=== PATIENT | male | born 1955 | race Caucasian/White ===

== ENCOUNTER 2018-06-26 17:03 | Inpatient (IN) ==
--- NOTE | 2018-06-26 17:07 | Emergency Department Note ---
Disposition Clinical Impression: Elevated troponin, Lower extremity edema, Alcoholism Cellulitis Qualifiers: Site of cellulitis: other site Qualified Code(s): L03.818 - Cellulitis of other sites CHF exacerbation Qualifiers: Heart failure type: unspecified Qualified Code(s): I50.9 - Heart failure, unspecified Deep vein thrombosis of lower extremity Qualifiers: Affected thrombotic vein of extremity: other lower extremity vein Chronicity: acute Laterality: left Qualified Code(s): I82.492 - Acute embolism and thrombosis of other specified deep vein of left lower extremity Disposition: Admitted As Inpatient Condition: Fair Referrals: Pollo Jean-Baptiste DO [Primary Care Provider] - Time of Disposition: 21:00 General Adult HPI - General Chief complaint: UC Nontraumatic Extremity Problem Stated complaint: chest pain Time Seen by Provider: 06/26/18 17:05 Source: patient, EMS Mode of arrival: EMS Limitations: no limitations Nursing Notes Reviewed: Yes Vital Signs Reviewed: Yes - History of Present Illness HPI Narrative: Mr Jung is a 63yo male here via EMS. He went to for increased swelling of the bilateral LE. He states he is always somewhat swollen but this is much worse than usual, he has started noticing it getting worse over the last few days. He also states that he has chronic shortness of breath, moreso on exertion than at baseline. He states that he has no active chest pain nor has he ever had a heart attack. He doesn't have a formal diagnosis of COPD and denies wearing oxygen at home. He does also note that his feet have been more swollen and red than usual the last 2-3 days. He denies any fevers, chills, change in sputum production, headche, n/v/d, or abdominal pain. Pt Subjective Complaint: my legs are swollen - Related Data Allergies Allergy/AdvReac Type Severity Reaction Status Date / Time No Known Allergies Allergy Verified 03/05/16 16:59 Constitutional: Denies: fever, chills ENT ED: Reports: congestion Cardiovascular: Reports: dyspnea on exertion. Denies: chest pain, palpitations Respiratory: Reports: cough, dyspnea, wheezes Gastrointestinal: Denies: abdominal pain, nausea, vomiting Neurological: Reports: weakness Endocrine: Reports: fatigue Hematological/Lymphatic: Denies: easy bleeding, easy bruising Past Medical History - Past Medical History Medical history: Reports: hypertension, liver disease Surgical history: Reports: appendectomy, knee replacement Psychiatric history: Reports: depression - Social History Smoking Status: Current every day smoker Alcohol use: Reports: heavy Drug use: Reports: none Physical Exam - General Limitations: no limitations General appearance: alert, in no apparent distress, other (sitting in bed comfortably, not in respiratory distress, able to speak in full sentences) - Head Head exam: atraumatic, normocephalic, normal inspection - Eye Eye exam: Present: normal appearance. Absent: scleral icterus - ENT ENT exam: normal exam, mucous membranes moist - Neck Neck exam: Present: normal inspection, trachea midline - Chest Chest inspection: Present: symmetric chest wall rise - Respiratory Respiratory exam: Present: wheezes, prolonged expiratory phase, other (no rhonchi, stridor or accessory muscle use) - Cardiovascular Cardiovascular exam: Present: regular rate, normal rhythm, +S1, +S2. Absent: rubs, gallop, clicks, JVD - Abdominal Exam Abdominal exam: Present: soft, Non-Tender. Absent: distention, guarding, rebound, rigidity - Extremities Exam Extremities exam: Present: normal capillary refill, pedal edema (2+), other (feet bilaterally are swollen and tender to the touch, appear to be early cellulitis) - Neurological Exam Neurological exam: Present: alert, oriented X3 - Psychiatric Psychiatric exam: Present: normal affect, normal mood - Skin Skin exam: Present: warm, dry, intact Course Course Narrative: Mr Jung is a 63yo male here via EMS. He went to for increased swelling of the bilateral LE. He states he is always somewhat swollen but this is much worse than usual, he has started noticing it getting worse over the last few days. He also states that he has chronic shortness of breath, moreso on exertion than at baseline. He states that he has no active chest pain, has no heart hx, has never been diagnosed with an acute CO nor has he ever had a workup for heart disease. He has never been formally diagnosed with COPD nor does he wear O2 at home but he has been smoking for 50+ yrs. The pt has swollen, tender feet on examination that appear to be early cellulitis. Will work the pt up for causes of edema including new onset CHF exacerbation. Will give the pt a breathing tx and check bilateral LE with doppler US to r/o DVT. Likely to go home on oral abx. - Reevaluation(s) Reevaluation #1: is at bedside. Time: 17:34 Reevaluation #2: Spoke with hospitlaist who accepts admission. Pt made aware of admission. Time: 21:00 Vital Signs Temperature 99.5 F 06/26/18 17:06 Pulse Rate 83 06/26/18 17:06 Respiratory Rate 17 06/26/18 17:06 Blood Pressure 130/88 06/26/18 17:06 O2 Sat by Pulse Oximetry 100 06/26/18 17:06 Temperature 99.5 F 06/26/18 17:06 Pulse Rate 91 06/26/18 18:09 Respiratory Rate 14 06/26/18 18:09 Blood Pressure 147/93 06/26/18 18:09 O2 Sat by Pulse Oximetry 98 06/26/18 18:09 Oxygen Delivery Oxygen Delivery Room Air Medical Decision Making - MDM Narrative Medical decision making narrative: Mr Jung is a 63yo male here via EMS. He went to for increased swelling of the bilateral LE. He meets SIRS criteria for HR of 91 and WBC count of 25.1. On initial evaluation the pt had bilateral lower extremity edema and erythema, he appears to have early changes of cellulitis for which he was given vancomycin and zosyn. Blood cx were ordered and are pending. Troponin was elevated at 0.04, likely secondary to demand ischemia from infxn vs CHF exacerbation. He also had a BNP 340. He has never had a formal cardiac workup nor has he had any cardiac disease history. He also had a lower extremity doppler ultrasound which showed acute thrombus in LT gastricnemius vein (a deep vein) and LT LSV (a superficial vein) all other vessels appear patent. He will be started on enoxaparin for this. He CXR was negative for acute process and CT scan negative for PE. Hospitalist Dr Goins accepts the admission. He will be evaluated for further evaluation and tx. He is currently stable for transfer to the floor. He also did admit to a hx of alcohol abuse and states he drinks excessively and very heavy. He got one dose of ativan in the ER and CIWA assessment. - Medical Records Medical records reviewed: Yes I reviewed the patient's medical records. - Lab Data Lab results reviewed: Yes I reviewed the patient's lab results. Result diagrams: 06/26/18 17:30 06/26/18 17:30 Lab Results 06/26/18 06/26/18 06/26/18 Range/Units 17:30 17:30 17:30 WBC 25.1 H (4.3-11.1) K/mcL RBC 4.15 L (4.19-5.50) M/mcL Hgb 13.0 (12.9-16.9) g/dL Hct 37.9 (37.5-50.1) % MCV 91.3 (83.0-100.0) fL MCH 31.3 (28.0-33.3) pg MCHC 34.3 (31.6-35.5) g/dL RDW 13.7 (11.5-14.5) % Plt Count 373 (140-400) K/mcL MPV 9.4 (9.4-12.4) fL Immature Gran % 2.1 (0-4) % Seg Neutrophils % 90.8 % Lymphocytes % 4.0 % Monocytes % 2.8 % Eosinophils % 0.1 % Basophils % 0.2 % Neutrophils # 22.8 H (1.6-8.9) K/mcL Lymphocytes # 1.0 (0.6-4.6) K/mcL Monocytes # 0.7 (0.0-1.3) K/mcL Eosinophils # 0.0 (0.0-0.6) K/mcL Basophils # 0.1 (0.0-0.2) K/mcL Platelet Estimate Normal (Normal) Sodium 125 L (136-145) mEq/L Potassium 3.5 (3.5-5.1) mEq/L Chloride 90 L (98-107) mEq/L Carbon Dioxide 26 (23-29) mEq/L BUN 15 (8-23) mg/dL Creatinine 0.57 L (0.70-1.30) mg/dL Est GFR ( Amer) > 60 (> 60) Est GFR (Non-Af Amer) > 60 (> 60) BUN/Creatinine Ratio 26 (6-26) Glucose 90 (70-105) mg/dL Calculated Osmolality 260 L (280-300) Lactic Acid (0.5-2.2) mmol/L Calcium 8.5 L (8.6-10.3) mg/dL Troponin I 0.04 H* (< 0.04) ng/mL B-Natriuretic Peptide 340 H (Less than 100) pg/mL 06/26/18 Range/Units 18:49 WBC (4.3-11.1) K/mcL RBC (4.19-5.50) M/mcL Hgb (12.9-16.9) g/dL Hct (37.5-50.1) % MCV (83.0-100.0) fL MCH (28.0-33.3) pg MCHC (31.6-35.5) g/dL RDW (11.5-14.5) % Plt Count (140-400) K/mcL MPV (9.4-12.4) fL Immature Gran % (0-4) % Seg Neutrophils % % Lymphocytes % % Monocytes % % Eosinophils % % Basophils % % Neutrophils # (1.6-8.9) K/mcL Lymphocytes # (0.6-4.6) K/mcL Monocytes # (0.0-1.3) K/mcL Eosinophils # (0.0-0.6) K/mcL Basophils # (0.0-0.2) K/mcL Platelet Estimate (Normal) Sodium (136-145) mEq/L Potassium (3.5-5.1) mEq/L Chloride (98-107) mEq/L Carbon Dioxide (23-29) mEq/L BUN (8-23) mg/dL Creatinine (0.70-1.30) mg/dL Est GFR ( Amer) (> 60) Est GFR (Non-Af Amer) (> 60) BUN/Creatinine Ratio (6-26) Glucose (70-105) mg/dL Calculated Osmolality (280-300) Lactic Acid 1.1 (0.5-2.2) mmol/L Calcium (8.6-10.3) mg/dL Troponin I (< 0.04) ng/mL B-Natriuretic Peptide (Less than 100) pg/mL - Radiology Data Radiology results reviewed: Yes I reviewed the patient's radiology results. Critical Care Time Critical Care Time: Yes Total Critical Care Time: 35 Attestation: Critical care time 35 minutes managing patient's multiple problems including DVT CHF and cellulitis. Time is exclusive of other billable procedures. Attestation Statement - Attestation Attestation: Patient was seen with resident physician. I reviewed the history, physical, assessment and plan, and agree with the findings. I also personally evaluated t his patient and had [id number] time with this patient. 63-year-old male presents emergency department with swelling of the lower extremities bilaterally. Patient and state over the last couple days gotten progressively worse. He is also had increasing shortness of breath. He does have COPD and takes breathing treatments at home. He denies fevers or chills. He does have cough without sputum production. He is not had any chest pain. The also noted that his feet especially in the top of gotten more red and warm. He said that this is not a usual finding for him. He is not a diabetic and does not remember any injuries or scratches to his feet. He has no other complaints at this time. The reason he is here today is causes made him come in. Review of systems as above remainder negative. Physical exam vital signs are stable. ENT is unremarkable. Heart regular rhythm and rate. Lungs some crackles and mild wheezing heard throughout no significant increased work of breathing. Pulse ox 100% on room air while I was in the room. Abdomen is soft nontender. Extremities patient has swelling below the ankle bilaterally in both feet also has erythema of those areas which is warm and red and an appearance that is consistent with cellulitis. Distal pulses are intact. Neurologically intact. Skin cellulitic changes in the feet as noted. Psych normal. ED course. Because this is new onset swelling we will get Dopplers of the extremities just to make sure is no blood clots they are also with it being bilateral we will check for CHF and other abnormalities. I think the patient does have some COPD we can do breathing treatment while he is here. An extensive workup was done on this patient to try and sort out what was causing his symptoms. There is concerns for COPD CHF possible DVT etc. Findings that ends up being positive including a DVT in the left lower extremity. A CT scan was negative for PE. Chest x-ray was negative. EKG showed no acute ischemic changes but his troponin was slightly positive at 0.04. Patient states that he is an alcoholic as well. Patient was started on Lovenox for DVT. He was started on antibiotics for cellulitis to think is contributing to his markedly elevated white blood cell count. We spoke the hospitalist service to arrange for admission for treatment for his variety of illnesses. Critical care time for this patient was 35 minutes. Agree with resident physician assessment and plan.
[2018-06-26] MEDS ORDERED: Ipratropium/Albuterol Neb 3 ML IH ONE (17:18)
[2018-06-26 17:55] LABS: Eosinophils % 0.1 %; Monocytes % 2.8 %
[2018-06-26 17:56] LABS: Basophils # 0.1 K/mcL (0.0-0.2); Basophils % 0.2 %; Hematocrit 37.9 % (37.5-50.1); Immature Granulocytes % 2.1 % (0-4); Mean Corpuscular HGB Conc 34.3 g/dL (31.6-35.5); Mean Corpuscular Hemoglobin 31.3 pg (28.0-33.3); Mean Corpuscular Volume 91.3 fL (83.0-100.0); Mean Platelet Volume 9.4 fL (9.4-12.4); Monocytes # 0.7 K/mcL (0.0-1.3); Neutrophils # 22.8 K/mcL (1.6-8.9); Platelet Count 373 K/mcL (140-400); Red Blood Count 4.15 M/mcL (4.19-5.50); Red Cell Distribution Width 13.7 % (11.5-14.5); Segmented Neutrophils % 90.8 %
[2018-06-26 18:03] LABS: BUN/Creatinine Ratio 26 (6-26); Blood Urea Nitrogen 15 mg/dL (8-23); Calcium 8.5 mg/dL (8.6-10.3); Carbon Dioxide 26 mEq/L (23-29); Chloride 90 mEq/L (98-107); Glucose 90 mg/dL (70-105); Osmolality,Calculated 260 (280-300); Potassium 3.5 mEq/L (3.5-5.1); Sodium 125 mEq/L (136-145); eGFR For Non-African Americans > 60 (> 60)
[2018-06-26 18:07] LABS: Troponin I 0.04 ng/mL (< 0.04)
[2018-06-26] MEDS ORDERED: Piperacillin/Tazobactam 3.375 GM in 0.9 % Sodium Chloride Mini Bag 100 ML IVPB ONE (18:08)
[2018-06-26 18:17] LABS: Platelet Estimate Normal (Normal)
[2018-06-26] MEDS ORDERED: Isovue-370 500 ML INFUS..BTL IV ONE (18:27)
[2018-06-26] MEDS ORDERED: *HR* LORazepam 2 MG/ML VIAL IVP ONE (20:42)
[2018-06-26] MEDS ORDERED: Aspirin 325 MG TABLET PO ONE (20:55)
[2018-06-26] MEDS: 0.9 % Sodium Chloride 1,000 ML IVC SCH (21:17)
[2018-06-26] MEDS ORDERED: Naloxone 0.4 MG/ML INJ IVP PRN (22:50)
[2018-06-27] MEDS: predniSONE 20 MG TABLET PO SCH ×2 (00:19→09:39)
[2018-06-27] MEDS: Azithromycin 250 MG TABLET PO SCH ×2 (00:20→09:39)
[2018-06-27] MEDS: Ipratropium/Albuterol Neb 3 ML IH SCH ×5 (00:36→22:31)
[2018-06-27 00:37] LABS: Hematocrit 37.1 % (37.5-50.1); Mean Corpuscular Hemoglobin 31.9 pg (28.0-33.3); Mean Corpuscular Volume 90.9 fL (83.0-100.0); Mean Platelet Volume 9.3 fL (9.4-12.4); Platelet Count 346 K/mcL (140-400); Red Blood Count 4.08 M/mcL (4.19-5.50); Red Cell Distribution Width 13.5 % (11.5-14.5)
[2018-06-27 00:56] LABS: Lymphocytes # 2.8 K/mcL (0.6-4.6); Monocytes # 0.5 K/mcL (0.0-1.3); Neutrophils # 20.1 K/mcL (1.6-8.9); Platelet Estimate Normal (Normal)
[2018-06-27 00:58] LABS: Alanine Aminotransferase 22 Units/L (7-52); Albumin 2.8 g/dL (3.5-5.7); Albumin/Globulin Ratio 0.8 (1.1-2.2); Alkaline Phosphatase 85 Units/L (34-104); Aspartate Amino Transferase 43 Units/L (13-39); BUN/Creatinine Ratio 23 (6-26); Bilirubin,Total 0.4 mg/dL (0.3-1.0); Blood Urea Nitrogen 16 mg/dL (8-23); Calcium 8.2 mg/dL (8.6-10.3); Carbon Dioxide 26 mEq/L (23-29); Chloride 91 mEq/L (98-107); Globulin 3.6 g/dL (2.4-3.5); Glucose 113 mg/dL (70-105); Magnesium 1.9 mg/dL (1.6-2.6); Osmolality,Calculated 262 (280-300); Phosphorous 3.1 mg/dL (2.7-4.5); Potassium 3.3 mEq/L (3.5-5.1); Sodium 125 mEq/L (136-145); Total Protein 6.4 g/dL (6.4-8.9); eGFR For Non-African Americans > 60 (> 60)
--- NOTE | 2018-06-27 04:40 | Internal Med History&Physical ---
Date of Encounter: 06/27/18 Time of Encounter: 00:04 Internal Medicine - H&P: HPI Chief complaint: LE swelling History of present illness: Mr. Jung is a 63 year old male with past medical history of hypertension, liver disease and alcohol use who presents to the ED with a chief complaint of bilateral lower extremity redness and swelling. He states that symptoms have been ongoing for about a week and have gotten progressively worse. Denies any trauma. Denies any fever or chills. Vascular duplex was performed in the ED which showed acute DVT of the left gastrocnemius vein. Patient denies any previous history of blood clots. No recent history of travel. No history of malignancy or recent surgery. He states that he has no active chest pain, has no heart disease, has never been diagnosed with an acute PA nor has he ever had a workup for heart disease. 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 Patient dates he smokes a pack a day and has been doing so for at least 50 years. He has never been formally diagnosed with COPD nor does he wear O2 at home. He reports a chronic cough that is productive. Denies any nausea, vomiting or diarrhea. Upon initial assessment patient was afebrile, hemodynamically stable saturating at 100% on 2 L. Laboratory workup was notable for a leukocyte count of 25.1, hyponatremia elevated BNP and elevated troponin. Past Med Surg Social Fam HX - Past Medical History Medical history: hypertension, liver disease Psychiatric history: depression - Past Surgical History Surgical History: appendectomy, knee replacement - Social History Smoking Status: Current every day smoker Alcohol use: heavy Drug use: none Internal Medicine - H&P: Meds Allergy/AdvReac Type Severity Reaction Status Date / Time No Known Allergies Allergy Verified 03/05/16 16:59 All Systems PM: A 10-system review of systems was performed and is negative for pertinent findings except as documented above in the HPI. - Constitutional Constitutional: no chills, no fever(s), no night sweats - EENT Eyes: no change in vision, no discharge, no pain, no photophobia Ears: no ear discharge, no ear pain, no tinnitus Nose, mouth and throat: no dysphagia, no nasal discharge, no neck pain, no sore throat - Cardiovascular Cardiovascular ROS IM: no chest pain, no diaphoresis, no dyspnea, no lightheadedness, no palpitations, no syncope - Respiratory Respiratory: no cough, no dyspnea, no wheezing, no excessive phlegm production - Gastrointestinal Gastrointestinal: no abdominal pain, no diarrhea, no hematemesis, no hematochezia, no melena, no nausea, no vomiting - Musculoskeletal Musculoskeletal ROS IM: no numbness, no tingling - Integumentary Integumentary IM: no rash, no unusual bruising - Neurological Neurological ROS: no confusion, no convulsions, no focal weakness, no numbness, no tingling, no tremor(s) - Hematologic/Lymphatic Hematologic/Lymphatic: no easy bruising - Constitutional Vitals: Temp Pulse Resp BP Pulse Ox 98.3 F 84 18 124/77 93 06/27/18 04:35 06/27/18 04:35 06/27/18 04:35 06/27/18 04:35 06/27/18 04:35 Exam: General: Alert and oriented Skin:Normal color, no rash, no lesions. HEENT:EOM, pupils equal, round and reactive. Cardiovascular:Normal S1 & S2, no rubs, murmurs or gallops. No JVD. Pulse regular. Lungs: Diffuse expiratory wheeze. Abdomen:Soft, non-tender, no rigidity. Extremities: Bilateral lower extremity edema extending up to the ankles bilaterally with notable erythema. Neurological:Normal cognition and motor skills. Pulses:Carotid and radial pulses normal +2. Rest of the physical exam is non contributory Internal Med - H&P Results - Labs CBC & Chem 7: 06/27/18 00:26 06/27/18 00:26 Labs: Short CBC 06/26/18 06/27/18 Range/Units 17:30 00:26 WBC 25.1 H 23.4 H (4.3-11.1) K/mcL Hgb 13.0 13.0 (12.9-16.9) g/dL Hct 37.9 37.1 L (37.5-50.1) % Plt Count 373 346 (140-400) K/mcL Neutrophils # 22.8 H 20.1 H (1.6-8.9) K/mcL BMP 06/26/18 06/27/18 17:30 00:26 Sodium 125 L 125 L Potassium 3.5 3.3 L Chloride 90 L 91 L Carbon Dioxide 26 26 BUN 15 16 Creatinine 0.57 L 0.71 Glucose 90 113 H Calcium 8.5 L 8.2 L Cardiac Enzymes 06/26/18 06/27/18 Range/Units 17:30 00:26 Troponin I 0.04 H* 0.06 H* (< 0.04) ng/mL Liver Function 06/27/18 Range/Units 00:26 Total Bilirubin 0.4 (0.3-1.0) mg/dL AST 43 H (13-39) Units/L ALT 22 (7-52) Units/L Alkaline Phosphatase 85 (34-104) Units/L Albumin 2.8 L (3.5-5.7) g/dL - Impressions ITS Impressions Chest X-Ray 06/26/18 17:10 IMPRESSION: No acute process. D/ / Robin Barrientos MD / Robin Barrientos MD Interpreting Provider: Robin Barrientos MD Chest CTA 06/26/18 18:27 IMPRESSION: No evidence of pulmonary embolism or acute pulmonary abnormality. Mild thickening of the wall of the distal esophagus may be related to reflux disease. Clinical correlation is recommended. Calcific coronary artery disease. D/ / Isai Garcia MD / Isai Garcia MD Interpreting Provider: Isai Garcia MD - Assessment and plan (1) Lower extremity edema Current Visit: Yes Status: Acute Assessment and plan: Patient presents with one-week history of progressive bilateral lower extremity edema isolated to the feet with notable erythema concerning for cellulitis. No evidence of any ulcerations on the soles of the feet. Was found to have acute DVT of the left lower extremity. Patient has a significantly leukocytosis of 25.1. Clinically does not appear septic. Given his alcohol and smoking history cannot rule out an underlying ischemic cardiomyopathy or CHF. -Continue with antibiotics for cellulitis -We will obtain echocardiogram -Follow-up blood cultures (2) Elevated troponin Current Visit: Yes Status: Acute Assessment and plan: Patient presents with an elevated troponin of 0.04. Patient denies any episodes of chest pain. Patient denies any previous history of heart disease. EKG showed no ischemic changes. CT angiogram was negative for PE or acute pulmonary d isease. Possibly demand ischemia in the setting of transient hypoxemia. -We will continue to trend troponin -Echocardiogram in the morning -Patient may need stress test once stable. (3) Deep vein thrombosis of lower extremity Current Visit: Yes Status: Acute Assessment and plan: Venous duplex demonstrates acute DVT involving the left gastrocnemius vein which appears to be unprovoked. Patient denies any previous history of DVT or blood clots. Denies any recent travel or history of malignancy. CTA shows no evidence of PE. Patient received an Lovenox in the ED. -Continue with Lovenox. Discussion for long-term anticoagulation to follow. Qualifiers: Affected thrombotic vein of extremity: other lower extremity vein Chronicity: acute Laterality: left Qualified Code(s): I82.492 - Acute embolism and thrombosis of other specified deep vein of left lower extremity (4) Wheezing on exhalation Current Visit: Yes Status: Acute Assessment and plan: Expiratory wheezing noted on lung examination with transient hypoxemia. Patient has a significant smoking history of more than 50 pack years. Suspect that he may have undiagnosed COPD. -We will start patient on duo nebs -O2 support -Azithromycin -PO prednisone. -Patient may need pulmonary function testing following discharge (5) Hyponatremia Current Visit: Yes Status: Acute Assessment and plan: Hyponatremia of 125. Patient appears euvolemic. History of alcohol use. Possibly secondary to beer potomania given his malnutrition as evidenced by his low albumin of 2.8 -We will obtain urine sodium and urine osmolality studies. -We will continue with normal saline at 75 mL an hour -Consider nephrology consult if sodium does not improve (6) Alcoholism Current Visit: Yes Status: Acute Assessment and plan: Patient has a history of alcohol use. -[facility] protocol -We will give one banana bag - Time Spent With Patient Total time spent is greater than 50% in coordination of care (as documented) at patient's floor/unit and/or counseling patient:
[2018-06-27] MEDS ORDERED: *HR* LORazepam 2 MG/ML VIAL IVP PRN ×3 (05:23)
[2018-06-27] MEDS: *HR* Enoxaparin 80 MG/0.8 ML SYRINGE SQ SCH ×2 (05:29→17:47)
--- NOTE | 2018-06-27 08:30 | Event Note ---
Date of Encounter: 06/27/18 Time of Encounter: 11:00 Patient seen and evaluated by bacteriology research assistant earlier this morning and also by myself. Patient is a 63-year-old male who presents with bilateral lower extremity edema found to have VTE in left gastrocnemius vein in addition to superficial VTE in lesser saphenous vein. In addition patient was discovered to have elevated troponins on admission and elevated BNP Patient also with hyponatremia and hypokalemia in addition to leukocytosis. 1. DVT Continue Lovenox 80 mg twice daily for DVT and started in the ER 2. Elevated troponins Will trend serial troponins and monitor patient on telemetry for ACS rule out; echocardiogram pending 3. Bilateral lower extremity cellulitis Patient was given 1 dose of vancomycin and Zosyn for bilateral lower extremity cellulitis. 4. Leukocytosis WBC of 25.1 on admission and 23.4 this morning Patient started on 1 dose of IV vancomycin and Zosyn in the ER due to suspected lower extremity cellulitis 5. COPD exacerbation Continue scheduled DuoNeb's and azithromycin for suspected COPD exacerbation and will continue supplemental oxygenation as needed 6. Electrolyte abnormalities Potassium supplementation for hypokalemia and monitoring hyponatremia 7. Alcohol dependence/abuse Continue [facility] protocol for alcohol dependence/abuse
[2018-06-27] MEDS ORDERED: Ketorolac 30 MG/ML VIAL IVP ONE (10:28)
[2018-06-27] MEDS: 0.9 % Sodium Chloride 1,000 ML IVC SCH (10:51)
[2018-06-27] MEDS: Nicotine 21 MG PATCH.TD24 TD SCH (10:52)
--- NOTE | 2018-06-27 15:15 | Electrocardiograph Report ---
[place] [id number] Test Date: 2018-06-26 Pat Name: Parag Jung Department: EXAM11 Room: 3A45 Gender: M Oncology Navigator: : 1955 Requested By: Irineo Law Order Number: [id number] Reading MD: Ge Hurd Measurements Intervals [place] Rate: 86 P: 67 MI: 132 QRS: -56 QRSD: 93 T: 74 QT: 362 QTc: 433 Interpretive Statements Sinus rhythm Left anterior fascicular block Low voltage, precordial leads Electronically Signed On 06-27-2018 15:13:46 EST by Ge Hurd
[2018-06-27] MEDS: Piperacillin/Tazobactam 3.375 GM in 0.9 % Sodium Chloride Mini Bag 100 ML IVPB SCH ×2 (15:51→23:34)
[2018-06-27] MEDS: Thiamine (B-1) 100 MG, Folic Acid 1 MG, MVI, adult with vitamin K 10 ML in 0.9 % Sodi... IVPB SCH (23:49)
[2018-06-28] MEDS: Ipratropium/Albuterol Neb 3 ML IH SCH ×4 (04:12→22:43)
[2018-06-28] MEDS: *HR* Enoxaparin 80 MG/0.8 ML SYRINGE SQ SCH (06:13)
[2018-06-28] MEDS: Piperacillin/Tazobactam 3.375 GM in 0.9 % Sodium Chloride Mini Bag 100 ML IVPB SCH ×2 (08:57→16:01)
[2018-06-28] MEDS: Azithromycin 250 MG TABLET PO SCH (08:57)
[2018-06-28] MEDS: Nicotine 21 MG PATCH.TD24 TD SCH (08:57)
[2018-06-28] MEDS: predniSONE 20 MG TABLET PO SCH (08:57)
--- NOTE | 2018-06-28 10:02 | Internal Med Progress Note ---
Hospitalist Progress Note - Encounter Date of Encounter: 06/28/18 Time of Encounter: 11:00 - Subjective Interval History: Patient presented with bilateral lower extremity edema found to have DVT and left lower extremity Patient also with bilateral pedal cellulitis with leukocytosis In addition patient also found to have elevated troponins - Exam Vitals: Temp Pulse Resp BP Pulse Ox 97.7 F 83 18 127/83 93 06/28/18 07:06 06/28/18 07:06 06/28/18 07:06 06/28/18 07:06 06/28/18 07:06 Exam: Gen.: Nonacute distress, alert and oriented 3 ENT: Mucosal membranes moist Respiratory: Lungs are clear to auscultation bilaterally without any wheezing rhonchi or rales Cardiovascular: Normal S1 and S2 regular rate rhythm no murmurs rubs or gallops Abdomen: Soft, nontender and nondistended with positive bowel sounds Extremities: No lower extremity edema Skin: Bilateral lower extremity cellulitis improving - Assessment and Plan (1) Deep vein thrombosis of lower extremity Current Visit: Yes Status: Acute Assessment and Plan: Venous duplex demonstrates acute DVT involving the left gastrocnemius vein which appears to be unprovoked. CTA shows no evidence of PE. Will transition patient from therapeutic Lovenox subcutaneous to Xarelto daily (2) Cellulitis Current Visit: Yes Status: Acute Assessment and Plan: Bilateral lower extremity cellulitis improving on IV vancomycin and IV Zosyn; leukocytosis improving as well Will continue current management (3) Elevated troponin Current Visit: Yes Status: Acute Assessment and Plan: Patient with elevated troponins: 0.04->0.06->0.13->0.04->0.09 EKG on admission without any ST/T-wave changes Echocardiogram showed LVEF of 70-75% with hyperdynamic left ventricle; also noted was mild left ventricular diastolic dysfunction Cardiology consulted and appreciate recommendations (4) Hyponatremia Current Visit: Yes Status: Acute Assessment and Plan: Sodium 125 on admission and remained at 125 yesterday Suspect secondary to alcohol dependence Will continue to monitor (5) Alcoholism Current Visit: Yes Status: Acute Assessment and Plan: Patient has a history of alcohol use. [facility] protocol DVT Prophylaxis: Patient has been started on Xarelto - Time Spent with Patient Total time spent is greater than 50% in coordination of care (as documented) at patient's floor/unit and/or counseling patient: Internal Medicine: Result - Labs CBC & Chem 7: 06/28/18 09:51 06/28/18 09:51 Labs: BMP 06/27/18 14:22 Potassium 3.7 Cardiac Enzymes 06/27/18 06/28/18 Range/Units 19:13 06:37 Troponin I 0.04 H* 0.09 H* (< 0.04) ng/mL - Impressions Impressions Echocardiogram 06/26/18 22:56 Impressions: LVEF 70-75%, hyperdynamic LV. Mild left ventricular diastolic dysfunction. Normal right ventricular structure and function. No significant valvular dysfunction. Mild pulmonary hypertension. Left Ventricular Wall Motion: Rest Echo Findings The apex, apical inferior, mid inferior, basal inferior, apical anterior, mid anterior, basal anterior, apical septal, mid inferior septal, basal inferior septal, apical lateral, mid anterior lateral, basal anterior lateral, mid anterior septal, mid inferior lateral, basal anterior septal and basal inferior lateral montalvo were hyperkinetic. Findings: Study Quality * Technically adequate exam. ECG Findings * Normal sinus rhythm. Left Ventricle * LVEF 70-75%, hyperdynamic LV. * Normal LV chamber size, wall thickness and systolic function. * Mild left ventricular diastolic dysfunction. Right Ventricle * Normal right ventricular structure and function. Left Atrium * Normal left atrial size. Right Atrium * Normal right atrial size. Interatrial Septum * Interatrial septum not well evaluated. Aortic Valve * Trileaflet aortic valve. * Mildly calcified aortic valve leaflets. * Mildly sclerotic aortic valve leaflets. * No aortic stenosis. Elevated mean gradient due to hyperdynamic LV. * No aortic regurgitation. Mitral Valve * Normal mitral valve structure. * No mitral stenosis. * Trace mitral regurgitation. * Mildly calcified mitral valve leaflets. Tricuspid Valve * Normal tricuspid valve structure. * No tricuspid stenosis. * Trace tricuspid regurgitation. * Estimated RVSP is 39 mmHg. * Estimated RA pressure is 3 mmHg. * Mild pulmonary hypertension. Pulmonic Valve * Pulmonic valve is not well visualized. * No pulmonic stenosis. * Trace pulmonic regurgitation. Aorta * Normally sized aortic root. Pericardium * The pericardium appears normal. IVC * Normal IVC dimensions and inspiratory collapse. Consult Discharge Plan - Plan Referrals: Pollo Jean-Baptiste DO [Primary Care Provider] - (1) Deep vein thrombosis of lower extremity Qualifiers: Affected thrombotic vein of extremity: other lower extremity vein Chronicity: acute Laterality: left Qualified Code(s): I82.492 - Acute embolism and thrombosis of other specified deep vein of left lower extremity (2) Cellulitis Qualifiers: Site of cellulitis: other site Qualified Code(s): L03.818 - Cellulitis of other sites
[2018-06-28 10:12] LABS: Basophils # 0.1 K/mcL (0.0-0.2); Basophils % 0.3 %; Eosinophils % 0.2 %; Hematocrit 34.9 % (37.5-50.1); Immature Granulocytes % 1.4 % (0-4); Lymphocytes % 10.4 %; Mean Corpuscular HGB Conc 34.4 g/dL (31.6-35.5); Mean Corpuscular Hemoglobin 31.7 pg (28.0-33.3); Mean Corpuscular Volume 92.1 fL (83.0-100.0); Mean Platelet Volume 9.7 fL (9.4-12.4); Monocytes % 5.4 %; Neutrophils # 15.9 K/mcL (1.6-8.9); Platelet Count 419 K/mcL (140-400); Red Blood Count 3.79 M/mcL (4.19-5.50); Red Cell Distribution Width 13.6 % (11.5-14.5); Segmented Neutrophils % 82.3 %
[2018-06-28 10:32] LABS: BUN/Creatinine Ratio 39 (6-26); Blood Urea Nitrogen 22 mg/dL (8-23); Calcium 8.2 mg/dL (8.6-10.3); Carbon Dioxide 28 mEq/L (23-29); Chloride 100 mEq/L (98-107); Glucose 113 mg/dL (70-105); Osmolality,Calculated 280 (280-300); Potassium 3.3 mEq/L (3.5-5.1); Sodium 133 mEq/L (136-145); eGFR For Non-African Americans > 60 (> 60)
--- NOTE | 2018-06-28 14:27 | Cardiology Consult Note ---
<Yasmin Torres - Last Filed: 06/28/18 14:29> Date of Encounter: 06/28/18 Time of Encounter: 14:24 Assessment and Plan (1) Cellulitis Current Visit: Yes Status: Acute Per cardiology: -Bilateral lower extremity cellulitis. -Management per primary service. Qualifiers: Site of cellulitis: other site Qualified Code(s): L03.818 - Cellulitis of other sites (2) Deep vein thrombosis of lower extremity Current Visit: Yes Status: Acute Per cardiology: -Acute DVT. -Management per primary service. Qualifiers: Affected thrombotic vein of extremity: other lower extremity vein Chronicity: acute Laterality: left Qualified Code(s): I82.492 - Acute embolism and thrombosis of other specified deep vein of left lower extremity (3) Elevated troponin Current Visit: Yes Status: Acute Per cardiology: -Troponins 0.04, 0.06, 0.13, 0.04, 0.09, negative in the setting of DVT, cellulitis, leukocytosis, COPD exacerbation. -Denies angina. Reports pleuritic chest pain. -No acute ischemic ECG changes noted. -TTE with LVEF 70-75%, mild diastolic dysfunction, mild PH, hyperdynamic wall motion. -Was previously on zocor in outpatient setting. -Demand ischemia, no cardiac rehab consult warranted. -Will start ASA, resume statin, start BB. -Recommend outpatient stress test. -Anticipate cardiology sign off once seen and evaluated by . Discussion w patient/family: The assessment and plan as outlined above was discussed with the patient who expressed understanding and agreement. All questions were answered. Thank you for involving us in the care of your patient. Please call with any questions. Discussed and reviewed with . History of Present Illness Consult date: 06/28/18 Requesting physician: Placido Lyons Consult reason: elevated troponin Chief complaint: leg swelling History of present illness: Mr. Jung is a 63 year old male with a relevant past medical history of HTN, depression, alcohol abuse, current tobacco abuse who presented to [facility] with complaints of bilateral leg swelling. Patient also reports shortness of breath at rest and with exertion. Reports some chest discomfort when short of breath. Reports worsens with cough and deep inspiration. Patient reports chest pain relieved by use on his inhaler at home. Denies current chest pain. Past Med Surg Social Fam HX - Past Medical History Attestation: Yes The following information was validated with the patient. Source: patient, old records reviewed Medical history: hypertension, liver disease Psychiatric history: depression - Past Surgical History Surgical History: appendectomy, knee replacement - Social History Smoking Status: Current every day smoker Alcohol use: heavy Drug use: none Medications and Allergies Citalopram Hydrobromide [Citalopram HBr] 40 mg PO DAILY 06/28/18 [History] Meloxicam 7.5 mg PO DAILY 06/28/18 [History] Simvastatin [Zocor] 10 mg PO DAILY 06/28/18 [History] Tramadol HCl [Ultram] 50 mg PO HS PRN 06/28/18 [History] cloNIDine HCl [CloNIDine HCl] 0.1 mg PO DAILY 06/28/18 [History] Allergy/AdvReac Type Severity Reaction Status Date / Time No Known Allergies Allergy Verified 06/28/18 13:40 All Systems Review: The remainder of the systems were reviewed and are negative - Cardiovascular Cardiovascular: as per HPI, dyspnea at rest, dyspnea on exertion Physical Examination Vital Signs, Last 4 Hours Temp Pulse Resp BP Pulse Ox 06/28/18 10:43 17 93 06/28/18 10:40 98.2 F 85 16 134/80 92 General: Conversant, No Apparent Distress HEENT: Atraumatic, Normocephaly, Mucus Membranes Moist Neck: No JVD, Normal carotid pulses Cardiac: Reg Rate and Rhythm, Normal S1 and S2, No Murmur Lungs: Other (Expiratory wheezes noted throughout. ) Neuro: Alert and responsive, No focal deficits noted Abdomen: Soft, Non-Tender Skin: Other (Bilateral lower extremities redenned. ) Musculoskeletal: No Chest Wall Tenderness Extremities: No Clubbing, No Cyanosis, Normal Pulses, Other (Mild bilateral pedal edema noted. ) Results 06/28/18 09:51 06/28/18 09:51 Lab Results Active Medications Albuterol Sulfate (Albuterol Inhaler) 2 puff IH Q4HR PRN PRN Reason: Shortness Of Breath/Wheezing Stop: 12/26/18 22:59 Albuterol/Ipratropium (Duoneb) 3 ml IH QIDR BELINDA Stop: 12/26/18 23:01 Last Admin: 06/28/18 10:43 Dose: 3 ml Azithromycin (Zithromax) 500 mg PO DAILY [facility] Stop: 07/01/18 23:01 Last Admin: 06/28/18 08:57 Dose: 500 mg Enoxaparin Sodium (Lovenox) 80 mg 1 mg/kg (80 mg) SQ Q12HR [facility]; Protocol Stop: 12/27/18 06:01 Last Admin: 06/28/18 06:13 Dose: 80 mg Thiamine HCl 100 mg/ Folic Acid 1 mg/ Multivitamins 10 ml / Sodium Chloride 511.2 mls @ 85.2 mls/hr IVPB DAILY@1800 [facility] Stop: 06/29/18 23:59 Last Admin: 06/27/18 23:49 Dose: 85.2 mls/hr Piperacillin Sod/Tazobactam (Sod 3.375 gm/ Sodium Chloride) 100 mls @ 25 mls/hr IVPB Q8HR [facility] Stop: 12/27/18 16:01 Last Infusion: 06/28/18 13:20 Dose: Infused Vancomycin HCl 1,250 mg/ (Sodium Chloride) 250 mls @ 166.67 mls/hr IVPB Q12H [facility] Stop: 12/27/18 15:01 Last Admin: 06/28/18 14:01 Dose: 167 mls/hr Lorazepam (Ativan) 1 mg IVP Q1H PRN PRN Reason: Alcohol Withdrawal Stop: 12/27/18 05:24 Last Admin: 06/27/18 20:36 Dose: 1 mg Lorazepam (Ativan) 2 mg IVP Q4HR PRN PRN Reason: CIWA Score of 10-21 Stop: 12/27/18 05:24 Lorazepam (Ativan) 4 mg IVP Q4HR PRN PRN Reason: CIWA Score of 22-45 Stop: 12/27/18 05:24 Naloxone HCl (Narcan) 0.4 mg IVP Q2MIN PRN PRN Reason: SEE COMMENTS Stop: 12/26/18 22:51 Nicotine (Nicoderm) 21 mg TD DAILY [facility]; Protocol Stop: 12/27/18 10:31 Last Admin: 06/28/18 08:57 Dose: 21 mg Prednisone (Prednisone) 40 mg PO DAILY [facility] Stop: 12/26/18 23:01 Last Admin: 06/28/18 08:57 Dose: 40 mg Laboratory Tests 06/26/18 06/26/1819 17:30 17:30 00:26 WBC 25.1 H Creatinine Troponin I 0.04 H* 0.06 H* 06/27/18 06/27/18 06/28/18 05:33 19:13 06:37 WBC Creatinine Troponin I 0.13 H* 0.04 H* 0.09 H* 06/28/18 06/28/18 06/28/18 09:51 09:51 11:30 WBC 19.2 H Creatinine 0.57 L Troponin I < 0.03 - Imaging and Cardiology Chest Xray: report reviewed Echo: report reviewed - EKG Interpretation EKG results cardiology: personally reviewed (ECG with SR, HR 86.), other (8Telemetry reveiwed with average HR previous 12 hours noted to be 86, SR. PVCs and PACs noted.) Consult Discharge Plan - Plan Referrals: Pollo Jean-Baptiste DO [Primary Care Provider] - <Bimal Dale A - Last Filed: 06/28/18 15:34> Date of Encounter: 06/28/18 - Attending Attestation I have personally performed a face to face evaluation on this patient. I have reviewed and agree with the documented findings and care plan as documented by the SUPERVISOR. History and Exam by me shows: 63-year-old current everyday smoker admitted for cellulitis and lower extremity DVT. He reports intermittent nonexertional chest pain. Recommend resolution of her acute DVT and cellulitis and stress test as outpatie Bimal Adrian MD FAC Assessment and Plan Discussion w patient/family: The assessment and plan as outlined above was discussed with the patient and/or family members who expressed understanding and agreement. All questions were answered. Thank you for involving us in the care of your patient. Please call with any questions. History of Present Illness History of present illness: Mr. Jung is a 63 year old male All Systems Review: The remainder of the systems were reviewed and are negative Physical Examination Vital Signs, Last 4 Hours Temp Pulse Resp BP Pulse Ox 06/28/18 14:40 98.6 F 83 18 129/85 91 Results 06/28/18 09:51 06/28/18 09:51 Lab Results 06/27/18 06/28/18 06/28/18 19:13 06:37 09:51 WBC 19.2 H Hgb 12.0 L Hct 34.9 L Plt Count 419 H Sodium Potassium Chloride Carbon Dioxide BUN Creatinine Glucose Calcium Troponin I 0.04 H* 0.09 H* 06/28/18 06/28/18 09:51 11:30 WBC Hgb Hct Plt Count Sodium 133 L Potassium 3.3 L Chloride 100 Carbon Dioxide 28 BUN 22 Creatinine 0.57 L Glucose 113 H Calcium 8.2 L Troponin I < 0.03
[2018-06-28] MEDS: *HR* Rivaroxaban 15 MG TABLET PO SCH ×2 (16:01→19:20)
[2018-06-28] MEDS: Thiamine (B-1) 100 MG, Folic Acid 1 MG, MVI, adult with vitamin K 10 ML in 0.9 % Sodi... IVPB SCH (18:06)
[2018-06-29] MEDS: Piperacillin/Tazobactam 3.375 GM in 0.9 % Sodium Chloride Mini Bag 100 ML IVPB SCH ×2 (00:54→09:20)
[2018-06-29] MEDS: Ipratropium/Albuterol Neb 3 ML IH SCH ×3 (04:18→15:40)
[2018-06-29] MEDS ORDERED: Aspirin Enteric Coated 81 MG Tablet PO SCH (09:00)
[2018-06-29] MEDS ORDERED: Metoprolol XL (24 HR) Succ 25 MG TAB.ER.24H PO SCH (09:00)
[2018-06-29] MEDS: Azithromycin 250 MG TABLET PO SCH (09:22)
[2018-06-29] MEDS: *HR* Rivaroxaban 15 MG TABLET PO SCH (09:22)
[2018-06-29] MEDS: predniSONE 20 MG TABLET PO SCH (09:22)
[2018-06-29] MEDS: Nicotine 21 MG PATCH.TD24 TD SCH (09:22)
--- NOTE | 2018-06-29 11:25 | Discharge Summary ---
- NOTES TO OUTPATIENT PROVIDER Notes to Outpatient Provider: Patient with a history of hypertension, liver disease who was hospitalized here with bilateral lower extremity swelling and cellulitis and was found to have right lower extremity gastrocnemius vein patient will be on Xarelto for anticoagulation for up to 3 months. He will f ollow up with his primary care provider for further management. He will thrombus. Patient was started on anticoagulation. He was also started on IV antibiotics for his cellulitis. Patient also had bilateral expiratory wheezing and was started on treatment for possible COPD. Patient has not been previously diagnosed with COPD but he is a chronic smoker. Today his lower extremity swelling and cellulitis is mostly subsided. He is doing much better and is clinically stable to be discharged home. He will also complete a course of steroids for his COPD. He was laid pulmonary function testing as outpatient to confirm diagnosis. He will complete a course of antibiotics for his cellulitis. Orders not resulted at time of discharge: Pending orders 06/26/18 18:49 Culture,Blood [BC] Stat Date of Encounter: 06/29/18 Time of Encounter: 09:00 - Discharge Diagnosis (1) Deep vein thrombosis of lower extremity Priority: Primary Status: Acute Qualifiers: Affected thrombotic vein of extremity: other lower extremity vein Chronicity: acute Laterality: left Qualified Code(s): I82.492 - Acute embolism and thrombosis of other specified deep vein of left lower extremity (2) Cellulitis Priority: Secondary Status: Acute Qualifiers: Site of cellulitis: extremity Site of cellulitis of extremity: lower extremity Laterality: unspecified laterality Qualified Code(s): L03.119 - Cellulitis of unspecified part of limb (3) Elevated troponin Priority: Secondary Status: Acute (4) Alcoholism Priority: Secondary Status: Chronic (5) Hyponatremia Priority: Secondary Status: Acute (6) COPD (chronic obstructive pulmonary disease) Priority: Secondary Status: Suspected Qualifiers: COPD type: COPD with acute exacerbation Qualified Code(s): J44.1 - Chronic obstructive pulmonary disease with (acute) exacerbation Hospital course: Mr. Jung is a 63 year old male Patient with a history of hypertension, liver disease who was hospitalized here with bilateral lower extremity swelling and cellulitis and was found to have right lower extremity gastrocnemius vein patient will be on Xarelto for anticoagulation for up to 3 months. He will follow up with his primary care provider for further management. He will thrombus. Patient was started on anticoagulation. He was also started on IV antibiotics for his cellulitis. Patient also had bilateral expiratory wheezing and was started on treatment for possible COPD. Patient has not been previously diagnosed with COPD but he is a chronic smoker. Today his lower extremity swelling and cellulitis is mostly subsided. He is doing much better and is clinically stable to be discharged home. He will also complete a course of steroids for his COPD. He was laid pulmonary function testing as outpatient to confirm diagnosis. He will complete a course of antibiotics for his cellulitis. Discharge discussed with: patient - Time Spent with Patient Total time spent providing and/or coordinating discharge services: Greater than 30 minutes (35 min) - Discharge Medications Prescriptions: Albuterol Sulfate [Albuterol Inhaler] 2 puff IH Q4HR PRN #1 inhaler PRN Reason: Shortness Of Breath/Wheezing Amoxicillin/Clavulanate [Augmentin] 875 mg PO BIDWM #8 tablet Budesonide/Formoterol 80/4.5 [Symbicort 80/4.5] 2 puff IH BID #1 hfa.aer.ad Doxycycline 100 mg PO BID #10 capsule Lactobacillus Acidophilus [Acidophilus] 1 each PO BID #30 capsule predniSONE [PredniSONE] 10 mg PO DAILY 6 Days tablet Rivaroxaban [Xarelto] 15 mg PO BID #40 tablet Rivaroxaban [Xarelto] 20 mg PO DAILY #30 tablet Home Medications: Citalopram Hydrobromide [Citalopram HBr] 40 mg PO DAILY 06/28/18 [History] Meloxicam 7.5 mg PO DAILY 06/28/18 [History] Simvastatin [Zocor] 10 mg PO DAILY 06/28/18 [History] Tramadol HCl [Ultram] 50 mg PO HS PRN 06/28/18 [History] cloNIDine HCl [CloNIDine HCl] 0.1 mg PO DAILY 06/28/18 [History] Albuterol Sulfate [Albuterol Inhaler] 2 puff IH Q4HR PRN #1 inhaler 06/29/18 [Rx] Amoxicillin/Clavulanate [Augmentin] 875 mg PO BIDWM #8 tablet 06/29/18 [Rx] Budesonide/Formoterol 80/4.5 [Symbicort 80/4.5] 2 puff IH BID #1 hfa.aer.ad 06/29/18 [Rx] Doxycycline 100 mg PO BID #10 capsule 06/29/18 [Rx] Lactobacillus Acidophilus [Acidophilus] 1 each PO BID #30 capsule 06/29/18 [Rx] Rivaroxaban [Xarelto] 15 mg PO BID #40 tablet 06/29/18 [Rx] Rivaroxaban [Xarelto] 20 mg PO DAILY #30 tablet 06/29/18 [Rx] predniSONE [PredniSONE] 10 mg PO DAILY 6 Days tablet 06/29/18 [Rx] Allergies/Adverse Reactions: Allergy/AdvReac Type Severity Reaction Status Date / Time No Known Allergies Allergy Verified 06/28/18 13:40 Date of admission: 06/26/18 23:00 Primary care physician: Pollo Jean-Baptiste DO Consults: 06/26/18 22:58 Consult to Nurse Navigator [CONS] Routine Comment: 06/28/18 10:16 Consult to Cardiology [CONS] Routine Comment: Consulting Provider: Cardiology Charley Reason for Consult: Elevated troponins Call Completed: Yes Discharging clinician: Fanta Valverde Anticipated date of discharge: 06/29/18 - Constitutional Vitals: Temp Pulse Resp BP Pulse Ox 97.8 F 83 16 133/85 98 06/29/18 11:13 06/29/18 11:13 06/29/18 11:13 06/29/18 11:13 06/29/18 11:13 General appearance: Present: cooperative, A&O X 3, answers questions appropriately Exam: . - Respiratory Respiratory exam: Present: prolonged expiratory phase, wheezes. Absent: accessory muscle use, rales, rhonchi - GI/Abdominal GI/Abdominal exam: Present: normal bowel sounds, soft, no peritoneal signs. Absent: distended, tenderness - Extremities Exam Extremities exam: Present: warm, radial pulses palpable and symmetrical. Absent: calf tenderness, cyanotic, pedal edema - Patient Status Disposition: Home, Self-Care Condition: Good Functional capacity at discharge: independent ambulation Overall status at discharge: patient is back to baseline - Discharge Instructions Instructions: Deep Venous Thrombosis (DC), Cellulitis (DC) Follow Up With: Pollo Jean-Baptiste DO [Primary Care Provider] - (in 1 week) Yasmin Torres, [employer]ULING MACHINE [employer]EDER [Advanced Practice Nurse] - (in 2 weeks for follow up and stress test) Mechelle Crawley MD [Partnered Physician] - (For possible COPD and PFTs in 2-3 weeks) - Diet and Activity Activity: increase activity as tolerated Diet: advance to your usual diet
[2018-06-29 14:58] VITALS: BP 145/87
[2018-06-29] MEDS ORDERED: Aminoglycoside Consult 1 EACH MC ONE (15:59)
== END 2018-06-29 16:00 | disposition home or self-care (01) | DRG 383 ==
LOC: 3ANU 17:03 → EMEROOARM 17:03 → 3ANU 22:32 → SUATTDRO 23:00
PROVIDERS: ADMIT Internal Medicine; ATTEND Hospitalist

== ENCOUNTER 2018-07-07 18:32 | Observation (INO) ==
[2018-07-07] MEDS ORDERED: Isovue-370 500 ML BOTTLE IVP ONE (18:50)
--- NOTE | 2018-07-07 19:09 | Emergency Department Note ---
Disposition Clinical Impression: Lower extremity edema, Pleural effusion, Pericardial effusion Disposition: Admitted As Inpatient Condition: Fair General Adult HPI - General Chief complaint: ED Extremity Problem,Nontraumatic Stated complaint: leg swelling/SOB Time Seen by Provider: 07/07/18 18:49 Source: EMS Limitations: no limitations - History of Present Illness Pain Scale: 5 - Related Data Home Medications Medication Instructions Recorded Confirmed Citalopram Hydrobromide 40 mg PO DAILY 06/28/18 06/28/18 [Citalopram HBr] Meloxicam 7.5 mg PO DAILY 06/28/18 06/28/18 Simvastatin [Zocor] 10 mg PO DAILY 06/28/18 06/28/18 Tramadol HCl [Ultram] 50 mg PO HS PRN 06/28/18 06/28/18 cloNIDine HCl [CloNIDine HCl] 0.1 mg PO DAILY 06/28/18 06/28/18 Previous Rx's Medication Instructions Recorded Albuterol Sulfate [Albuterol 2 puff IH Q4HR PRN #1 inhaler 06/29/18 Inhaler] Amoxicillin/Clavulanate [Augmentin] 875 mg PO BIDWM #8 tablet 06/29/18 Budesonide/Formoterol 80/4.5 2 puff IH BID #1 hfa.aer.ad 06/29/18 [Symbicort 80/4.5] Doxycycline 100 mg PO BID #10 capsule 06/29/18 Lactobacillus Acidophilus 1 each PO BID #30 capsule 06/29/18 [Acidophilus] Rivaroxaban [Xarelto] 15 mg PO BID #40 tablet 06/29/18 Rivaroxaban [Xarelto] 20 mg PO DAILY #30 tablet 06/29/18 Allergies Allergy/AdvReac Type Severity Reaction Status Date / Time No Known Allergies Allergy Verified 06/28/18 13:40 Past Medical History - Past Medical History Medical history: Reports: hypertension, liver disease Surgical history: Reports: appendectomy, knee replacement Psychiatric history: Reports: depression - Social History Smoking Status: Current every day smoker Alcohol use: Reports: heavy Drug use: Reports: none Physical Exam - General Limitations: no limitations General appearance: alert, in no apparent distress Course Vital Signs Temperature 98.1 F 07/07/18 18:39 Pulse Rate 73 07/07/18 18:39 Respiratory Rate 16 01/17/19 18:39 Blood Pressure 173/101 01/17/19 18:39 O2 Sat by Pulse Oximetry 100 07/07/18 18:39 Temperature 98.1 F 07/07/18 18:39 Pulse Rate 91 07/07/18 21:55 Respiratory Rate 07/07/18 21:55 Blood Pressure 133/75 07/07/18 21:55 O2 Sat by Pulse Oximetry 97 07/07/18 21:55 Oxygen Delivery Oxygen Delivery Room Air Medical Decision Making - Lab Data Result diagrams: 07/07/18 19:19 07/07/18 19:19 Lab Results 07/07/18 07/07/18 07/07/18 Range/Units 19:19 19:19 19:19 WBC 20.4 H (4.3-11.1) K/mcL RBC 4.15 L (4.19-5.50) M/mcL Hgb 13.1 (12.9-16.9) g/dL Hct 39.2 (37.5-50.1) % MCV 94.5 (83.0-100.0) fL MCH 31.6 (28.0-33.3) pg MCHC 33.4 (31.6-35.5) g/dL RDW 14.8 H (11.5-14.5) % Plt Count 504 H (140-400) K/mcL MPV 9.5 (9.4-12.4) fL Sodium 131 L (136-145) mEq/L Potassium 3.8 (3.5-5.1) mEq/L Chloride 100 (98-107) mEq/L Carbon Dioxide 25 (23-29) mEq/L BUN 13 (8-23) mg/dL Creatinine 0.57 L (0.70-1.30) mg/dL Est GFR ( Amer) > 60 (> 60) Est GFR (Non-Af Amer) > 60 (> 60) BUN/Creatinine Ratio 23 (6-26) Glucose 76 (70-105) mg/dL Calculated Osmolality 271 L (280-300) Calcium 8.4 L (8.6-10.3) mg/dL Troponin I (< 0.04) ng/mL B-Natriuretic Peptide 223 H (Less than 100) pg/mL 07/07/18 Range/Units 19:19 WBC (4.3-11.1) K/mcL RBC (4.19-5.50) M/mcL Hgb (12.9-16.9) g/dL Hct (37.5-50.1) % MCV (83.0-100.0) fL MCH (28.0-33.3) pg MCHC (31.6-35.5) g/dL RDW (11.5-14.5) % Plt Count (140-400) K/mcL MPV (9.4-12.4) fL Sodium (136-145) mEq/L Potassium (3.5-5.1) mEq/L Chloride (98-107) mEq/L Carbon Dioxide (23-29) mEq/L BUN (8-23) mg/dL Creatinine (0.70-1.30) mg/dL Est GFR ( Amer) (> 60) Est GFR (Non-Af Amer) (> 60) BUN/Creatinine Ratio (6-26) Glucose (70-105) mg/dL Calculated Osmolality (280-300) Calcium (8.6-10.3) mg/dL Troponin I 0.03 (< 0.04) ng/mL B-Natriuretic Peptide (Less than 100) pg/mL Attestation Statement - Attestation Attestation: I examined this patient and my medical decision-making was reviewed with the Resident Physician. I agree with the documented findings, disposition and treatment plan as described except to the extent set forth below. Patient emergency department complaining of foot swelling. Onset 1 week ago. Called his PCP today who wanted him to come to the ED. Patient had a recent admission for leg cellulitis and was diagnosed with a DVT. He was started on Xarelto at that time. He states he started having some shortness of breath tonight as well. On exam is in no acute distress. 3+ pedal edema and ex piratory wheezing. Plan. Cardiac workup with CTA chest. CTA chest reviewed. Small pleural effusion and pericardial effusion. Leukocytosis but it is stable. Patient is admitted for further workup. Chest CTA 07/07/18 18:50 IMPRESSION: No findings to suggest pulmonary embolus. Small pericardial effusion. Small pleural effusion on the left with minimal associated atelectasis. No acute abnormality otherwise noted. D/ / Isai Damian / Isai Damian Interpreting Provider: Isai Damian
--- NOTE | 2018-07-07 19:09 | Emergency Department Note ---
Disposition Clinical Impression: Lower extremity edema, Pleural effusion, Pericardial effusion Disposition: Admitted As Inpatient Condition: Fair Time of Disposition: 21:52 General Adult HPI - General Chief complaint: ED Extremity Problem,Nontraumatic Stated complaint: leg swelling/SOB Time Seen by Provider: 07/07/18 18:49 Source: patient, EMS Limitations: no limitations Nursing Notes Reviewed: Yes Vital Signs Reviewed: Yes - History of Present Illness HPI Narrative: 63 yo male recently diagnosed with DVT presents to the emergency department via EMS for chief complaints of bilateral lower leg swelling and increased shortness of breath. He states that his leg and ankle swelling has gotten worse today and when he called his doctor he was told to come to the emergency department for evaluation. He denies taking any medications except for medications for his blood pressure and the new medication for his blood clot in his leg. He has never had a heart attack or heart failure. He has family history of DE in his father. He denies chest pain at this time. He does not really feel short of breath at rest but states he feels a little more short of breath than normal when moving around. He denies fever, abdominal pain, nausea, vomiting. Pain Scale: 5 - Related Data Home Medications Medication Instructions Recorded Confirmed Citalopram Hydrobromide 40 mg PO DAILY 06/28/18 06/28/18 [Citalopram HBr] Meloxicam 7.5 mg PO DAILY 06/28/18 06/28/18 Simvastatin [Zocor] 10 mg PO DAILY 06/28/18 06/28/18 Tramadol HCl [Ultram] 50 mg PO HS PRN 06/28/18 06/28/18 cloNIDine HCl [CloNIDine HCl] 0.1 mg PO DAILY 06/28/18 06/28/18 Previous Rx's Medication Instructions Recorded Albuterol Sulfate [Albuterol 2 puff IH Q4HR PRN #1 inhaler 06/29/18 Inhaler] Amoxicillin/Clavulanate [Augmentin] 875 mg PO BIDWM #8 tablet 06/29/18 Budesonide/Formoterol 80/4.5 2 puff IH BID #1 hfa.aer.ad 06/29/18 [Symbicort 80/4.5] Doxycycline 100 mg PO BID #10 capsule 06/29/18 Lactobacillus Acidophilus 1 each PO BID #30 capsule 01/09/19 [Acidophilus] Rivaroxaban [Xarelto] 15 mg PO BID #40 tablet 06/29/18 Rivaroxaban [Xarelto] 20 mg PO DAILY #30 tablet 06/29/18 Allergies Allergy/AdvReac Type Severity Reaction Status Date / Time No Known Allergies Allergy Verified 06/28/18 13:40 All systems ED: reviewed and negative except as stated. Review of Systems: As Per HPI Constitutional: Denies: fever, chills, weakness Cardiovascular: Reports: dyspnea on exertion. Denies: chest pain, palpitations Respiratory: Reports: wheezes. Denies: cough, dyspnea Gastrointestinal: Denies: abdominal pain, nausea, vomiting, diarrhea, constipation Genitourinary: Denies: dysuria, hematuria Musculoskeletal: Denies: back pain, neck pain Neurological: Denies: headache, weakness Endocrine: Denies: fatigue Past Medical History - Past Medical History Medical history: Reports: hypertension, liver disease Surgical history: Reports: appendectomy, knee replacement Psychiatric history: Reports: depression - Social History Smoking Status: Current every day smoker Alcohol use: Reports: heavy Drug use: Reports: none Physical Exam - General Limitations: no limitations General appearance: alert, in no apparent distress - Head Head exam: atraumatic, normocephalic - Eye Eye exam: Present: normal appearance, PERRL, EOMI - ENT ENT exam: normal exam, mucous membranes moist - Neck Neck exam: Present: normal inspection. Absent: tenderness, lymphadenopathy - Chest Chest inspection: Present: normal inspection, symmetric chest wall rise. A bsent: tenderness, rash - Respiratory Respiratory exam: Present: wheezes. Absent: respiratory distress, stridor, accessory muscle use - Cardiovascular Cardiovascular exam: Present: regular rate, normal rhythm - Abdominal Exam Abdominal exam: Present: soft, Non-Tender. Absent: distention, guarding, rebound, rigidity - Extremities Exam Extremities exam: Present: normal capillary refill, pedal edema (3+ pitting edema to mid echeverria). Absent: tenderness, calf tenderness - Neurological Exam Neurological exam: Present: alert, oriented X3 - Psychiatric Psychiatric exam: Present: normal affect, normal mood - Skin Skin exam: Present: warm, dry, intact Course Vital Signs Temperature 98.1 F 07/07/18 18:39 Pulse Rate 73 07/07/18 18:39 Respiratory Rate 16 07/07/18 18:39 Blood Pressure 173/101 07/07/18 18:39 O2 Sat by Pulse Oximetry 100 07/07/18 18:39 Temperature 98.1 F 07/07/18 18:39 Pulse Rate 73 07/07/18 18:39 Respiratory Rate 16 07/07/18 18:39 Blood Pressure 173/101 07/07/18 18:39 O2 Sat by Pulse Oximetry 100 07/07/18 18:39 Oxygen Delivery Oxygen Delivery Room Air Medical Decision Making - MDM Narrative Medical decision making narrative: Sinus symptoms concerning for pulmonary embolus versus heart failure versus iatrogenic fluid overload. We will do a CTA of the patient's chest to rule out PE and proceed with a heart failure workup including lab work, EKG. 2114 - Lab work remarkable for elevated WBC of 20 and slightly elevated BNP of 223, which is lower than his previous admission. EKG unchanged and without any concerning signs for cardiac ischemia. Trop negative. CTA chest shows pleural and pericardial effusions. Since this patient does not appear to be in heart failure we will admit him for further workup of the effusions. Pt was told of the plan and agrees. We will give him 40mg Lasix to start diuresis. Hospitalist has been paged. [phone] - Dr. Goins accepts the patient for admission. - Medical Records Medical records reviewed: Yes I reviewed the patient's medical records. - Lab Data Lab results reviewed: Yes I reviewed the patient's lab results. Result diagrams: 07/07/18 19:19 07/07/18 19:19 Lab Results 07/07/18 07/07/18 07/07/18 Range/Units 19:19 19:19 19:19 WBC 20.4 H (4.3-11.1) K/mcL RBC 4.15 L (4.19-5.50) M/mcL Hgb 13.1 (12.9-16.9) g/dL Hct 39.2 (37.5-50.1) % MCV 94.5 (83.0-100.0) fL MCH 31.6 (28.0-33.3) pg MCHC 33.4 (31.6-35.5) g/dL RDW 14.8 H (11.5-14.5) % Plt Count 504 H (140-400) K/mcL MPV 9.5 (9.4-12.4) fL Sodium 131 L (136-145) mEq/L Potassium 3.8 (3.5-5.1) mEq/L Chloride 100 (98-107) mEq/L Carbon Dioxide 25 (23-29) mEq/L BUN 13 (8-23) mg/dL Creatinine 0.57 L (0.70-1.30) mg/dL Est GFR ( Amer) > 60 (> 60) Est GFR (Non-Af Amer) > 60 (> 60) BUN/Creatinine Ratio 23 (6-26) Glucose 76 (70-105) mg/dL Calculated Osmolality 271 L (280-300) Calcium 8.4 L (8.6-10.3) mg/dL Troponin I (< 0.04) ng/mL B-Natriuretic Peptide 223 H (Less than 100) pg/mL 07/07/18 Range/Units 19:19 WBC (4.3-11.1) K/mcL RBC (4.19-5.50) M/mcL Hgb (12.9-16.9) g/dL Hct (37.5-50.1) % MCV (83.0-100.0) fL MCH (28.0-33.3) pg MCHC (31.6-35.5) g/dL RDW (11.5-14.5) % Plt Count (140-400) K/mcL MPV (9.4-12.4) fL Sodium (136-145) mEq/L Potassium (3.5-5.1) mEq/L Chloride (98-107) mEq/L Carbon Dioxide (23-29) mEq/L BUN (8-23) mg/dL Creatinine (0.70-1.30) mg/dL Est GFR ( Amer) (> 60) Est GFR (Non-Af Amer) (> 60) BUN/Creatinine Ratio (6-26) Glucose (70-105) mg/dL Calculated Osmolality (280-300) Calcium (8.6-10.3) mg/dL Troponin I 0.03 (< 0.04) ng/mL B-Natriuretic Peptide (Less than 100) pg/mL - Radiology Data Radiology results reviewed: Yes I reviewed the patient's radiology results. - EKG Data EKG #1 EKG attestation: Yes I reviewed and interpreted this EKG. EKG results narrative: EKG obtained at 19:22 on 07/07/2018 Her rate 79 bpm, UT interval 132, QRS duration 94, QT 388, QTC 445 Sinus rhythm with some mild left axis deviation. No significant ST Engman elevations or depressions. No arrhythmias noted. Unchanged from previous EKG dated 06/26/2018.
[2018-07-07 19:29] LABS: Hematocrit 39.2 % (37.5-50.1); Hemoglobin 13.1 g/dL (12.9-16.9); Mean Corpuscular HGB Conc 33.4 g/dL (31.6-35.5); Mean Corpuscular Hemoglobin 31.6 pg (28.0-33.3); Mean Corpuscular Volume 94.5 fL (83.0-100.0); Mean Platelet Volume 9.5 fL (9.4-12.4); Platelet Count 504 K/mcL (140-400); Red Blood Count 4.15 M/mcL (4.19-5.50); Red Cell Distribution Width 14.8 % (11.5-14.5)
[2018-07-07 19:51] LABS: BUN/Creatinine Ratio 23 (6-26); Blood Urea Nitrogen 13 mg/dL (8-23); Calcium 8.4 mg/dL (8.6-10.3); Carbon Dioxide 25 mEq/L (23-29); Chloride 100 mEq/L (98-107); Glucose 76 mg/dL (70-105); Osmolality,Calculated 271 (280-300); Potassium 3.8 mEq/L (3.5-5.1); Sodium 131 mEq/L (136-145); eGFR For Non-African Americans > 60 (> 60)
[2018-07-07] MEDS ORDERED: Furosemide 40 MG/4 ML VIAL IVP ONE (21:17)
--- NOTE | 2018-07-07 23:37 | Internal Med History&Physical ---
<Clif Garcia T - Last Filed: 07/08/18 04:27> Date of Encounter: 07/08/18 Time of Encounter: 22:45 Internal Medicine - H&P: HPI Chief complaint: LE swelling Admitted From: Home Plans for Post Hospital Care: Home History of present illness: Mr. Jung is a 63 year old male with pmh significant for HTN, alcoholism, and LLE DVT on 06/26/18 anticoagulated with rivaroxaban. He was admitted 10 days ago with bilateral LE edema and cellulitis and was found to have acute DVT of L gastrocnemius vein. Bilateral LE edema at that time had been present about a week prior to admission. He was dc 8 days ago and completed doxycycline and augmentin courses a couple days ago. He said the swelling improved some but this morning the swelling was worse and called his PCP who advised him to go to the ED. He admits to bilateral ankle tenderness with the swelling and says the erythema has improved since antibiotics. He additionally complains of a chronic cough that is sometimes productive and progressive dyspnea from baseline over the last 3-4 weeks and has recently been getting dyspnic with conversation. He denies diplopia, blurry vision, dizziness/lightheadedness, chest pain, pleuritic chest pain, orthopnea, PND, edema prior to visit previously this month, change in LE edema as day progresses or in the morning, asymmetric swelling, or pain with walking. Within the ED he had CTA chest that did not have evidence of PE but did have a small pericardial effusion and small L pleural effusion. He received lasix which he said he is breathing somewhat better afterwards. Past Med Surg Social Fam HX - Past Medical History Medical history: hypertension, liver disease Psychiatric history: depression - Past Surgical History Surgical History: appendectomy, knee replacement - Social History Smoking Status: Current every day smoker Smokeless Tobacco Status: No Alcohol use: heavy Drug use: none Internal Medicine - H&P: Meds Citalopram Hydrobromide [Citalopram HBr] 40 mg PO DAILY 06/28/18 [History] Meloxicam 7.5 mg PO DAILY 06/28/18 [History] Simvastatin [Zocor] 10 mg PO HS 06/28/18 [History] Tramadol HCl [Ultram] 50 mg PO HS PRN 06/28/18 [History] cloNIDine HCl [CloNIDine HCl] 0.1 mg PO DAILY 06/28/18 [History] Albuterol Sulfate [Albuterol Inhaler] 2 puff IH Q4HR PRN #1 inhaler 06/29/18 [Rx] Amoxicillin/Clavulanate [Augmentin] 875 mg PO BIDWM #8 tablet 06/29/18 [Rx] Budesonide/Formoterol 80/4.5 [Symbicort 80/4.5] 2 puff IH BID #1 hfa.aer.ad 06/29/18 [Rx] Doxycycline 100 mg PO BID #10 capsule 06/29/18 [Rx] Lactobacillus Acidophilus [Acidophilus] 1 each PO BID #30 capsule 06/29/18 [Rx] Rivaroxaban [Xarelto] 15 mg PO BID #40 tablet 06/29/18 [Rx] Rivaroxaban [Xarelto] 20 mg PO 1700 07/08/18 [History] Allergy/AdvReac Type Severity Reaction Status Date / Time No Known Allergies Allergy Verified 06/28/18 13:40 All Systems PM: A 10-system review of systems was performed and is negative for pertinent findings except as documented above in the HPI. - Constitutional Vitals: Temp Pulse Resp BP Pulse Ox 98.1 F 91 19 133/75 97 07/07/18 18:39 07/07/18 21:55 07/07/18 21:55 07/07/18 21:55 07/07/18 21:55 General appearance: Present: cooperative, A&O X 3, pleasant, no acute distress, answers questions appropriately Exam: - - Head Head exam: Present: atraumatic, normal inspection, normocephalic - Eye Eye exam: Present: normal appearance. Absent: periorbital swelling, scleral icterus - ENT ENT exam: Present: mucous membranes dry - Neck Neck exam general surgery: Present: normal inspection, supple, trachea midline. Absent: tenderness, thyromegaly - Respiratory Respiratory exam: Present: decreased breath sounds, rales, wheezes. Absent: accessory muscle use, chest wall tenderness, respiratory distress, rhonchi, stridor, tachypnea - Cardiovascular Cardiovascular exam: Present: distant heart sounds, RRR, +S1, +S2. Absent: bradycardia, clicks, diastolic murmur, gallop, irregular rhythm, JVD, rubs, +S3, +S4, systolic murmur, tachycardia - GI/Abdominal GI/Abdominal exam: Present: soft. Absent: distended, firm, guarding, hepatomegaly, rebound, rigid, splenomegaly, tenderness - Extremities Exam Extremities exam: Present: calf tenderness, normal capillary refill, pedal edema (3+ to mid calf), tenderness, warm, radial pulses palpable and symmetrical. Absent: cyanotic, normal inspection - Neurological Exam Neurological exam: Present: alert, CN II-XII intact, no focal deficits. Absent: facial droop, speech deficit - Psychiatric Psychiatric exam: Present: normal affect, normal mood - Skin Skin exam: Present: dry, erythema (mild bilat lower leg and feet), intact, warm. Absent: abrasion, cyanosis, diaphoretic, excoriation, mottled, pallor, petechiae, rash, urticaria, vesicles Internal Med - H&P Results - Labs CBC & Chem 7: 07/08/18 02:43 07/07/18 19:19 Labs: Short CBC 07/07/18 Range/Units 19:19 WBC 20.4 H (4.3-11.1) K/mcL Hgb 13.1 (12.9-16.9) g/dL Hct 39.2 (37.5-50.1) % Plt Count 504 H (140-400) K/mcL BMP 07/07/18 19:19 Sodium 131 L Potassium 3.8 Chloride 100 Carbon Dioxide 25 BUN 13 Creatinine 0.57 L Glucose 76 Calcium 8.4 L Cardiac Enzymes 07/07/18 Range/Units 19:19 Troponin I 0.03 (< 0.04) ng/mL - Impressions ITS Impressions Chest CTA 07/07/18 18:50 IMPRESSION: No findings to suggest pulmonary embolus. Small pericardial effusion. Small pleural effusion on the left with minimal associated atelectasis. No acute abnormality otherwise noted. D/ / Isai Damian / Isai Damian Interpreting Provider: Isai Damian - Assessment and plan (1) Heart failure with preserved ejection fraction Current Visit: Yes Status: Acute Assessment and plan: -Has had bilateral LE edema for last couple weeks that improved somewhat when treated for bilateral LE cellulitis and DVT but worsened this morning -Progressive dyspnea over last month -No orthopnea, PND -Edema is bilateral, symmetric and non pitting to mid calf -TTE 06/27/18: hyperdynamic LV, EF 70-75%, mild LV diastolic dysfunction, normal RV structure and function, no significant valvular dysfunction, mild ph -CTA chest 07/08/18: No PE, small pericardial effusion, small L pleural effusion, with minimal atelectasis -Dyspnea improved some with lasix in ED -Will continue lasix today for symptomatic improvement Qualifiers: Heart failure chronicity: acute Qualified Code(s): I50.31 - Acute diastolic (congestive) heart failure (2) COPD (chronic obstructive pulmonary disease) Current Visit: No Status: Suspected Assessment and plan: -Significant smoking hx of >50 pack years and continues to smoke 1 ppd -Never had PFT previously to diagnose COPD -Breathing improved when started using symbicort at home -Will continue symbicort and have nebs prn Qualifiers: COPD type: unspecified COPD Qualified Code(s): J44.9 - Chronic obstructive pulmonary disease, unspecified (3) Alcoholism Current Visit: No Status: Chronic Assessment and plan: -Hx of chronic alcohol use with associated fatty liver -Will check albumin level as possible secondary cause to LE edema (4) Hyponatremia Current Visit: No Status: Acute Assessment and plan: -Na 131 on arrival which is improved from Na 125 at last admission -Will continue to monitor Na (5) DVT prophylaxis Current Visit: Yes Status: Acute Assessment and plan: -Continue home rivaroxaban (6) Leukocytosis Current Visit: Yes Status: Acute Assessment and plan: -WBC 20.4 on arrival -Recently received steroids for COPD exacerbation and has currently resolving bilateral cellulitis s/p abx completion "couple days ago" -Afebrile and without additional signs of infection but will trend Qualifiers: Leukocytosis type: unspecified Qualified Code(s): D72.829 - Elevated white blood cell count, unspecified - Time Spent With Patient Total time spent is greater than 50% in coordination of care (as documented) at patient's floor/unit and/or counseling patient: <Isaiah Goins - Last Filed: 07/08/18 09:29> Date of Encounter: 07/07/18 Internal Medicine - H&P: HPI History of present illness: Mr. Jung is a 63 year old male All Systems PM: A 10-system review of systems was performed and is negative for pertinent f indings except as documented above in the HPI. - Constitutional Vitals: Temp Pulse Resp BP Pulse Ox 99.1 F 83 16 104/66 93 07/08/18 07:23 07/08/18 07:23 07/08/18 07:28 07/08/18 07:23 07/08/18 07:28 Internal Med - H&P Results - Labs CBC & Chem 7: 07/08/18 02:43 07/08/18 02:43 Labs: Short CBC 07/07/18 07/08/18 Range/Units 19:19 02:43 WBC 20.4 H 19.8 H (4.3-11.1) K/mcL Hgb 13.1 12.7 L (12.9-16.9) g/dL Hct 39.2 38.0 (37.5-50.1) % Plt Count 504 H 516 H (140-400) K/mcL Neutrophils # 16.4 H (1.6-8.9) K/mcL BMP 07/07/18 07/08/18 19:19 02:43 Sodium 131 L 132 L Potassium 3.8 3.5 Chloride 100 99 Carbon Dioxide 25 27 BUN 13 12 Creatinine 0.57 L 0.71 Glucose 76 91 Calcium 8.4 L 8.4 L Cardiac Enzymes 07/07/18 Range/Units 19:19 Troponin I 0.03 (< 0.04) ng/mL Liver Function 07/08/18 Range/Units 02:43 Total Bilirubin 0.5 (0.3-1.0) mg/dL AST 30 (13-39) Units/L ALT 27 (7-52) Units/L Alkaline Phosphatase 60 (34-104) Units/L Albumin 2.9 L (3.5-5.7) g/dL - Impressions ITS Impressions Chest CTA 07/07/18 18:50 IMPRESSION: No findings to suggest pulmonary embolus. Small pericardial effusion. Small pleural effusion on the left with minimal associated atelectasis. No acute abnormality otherwise noted. D/ / Isai Damian / Isai Damian Interpreting Provider: Isai Damian - Assessment and plan (1) Alcoholism Current Visit: No Status: Chronic (2) Hyponatremia Current Visit: No Status: Acute (3) COPD (chronic obstructive pulmonary disease) Current Visit: No Status: Suspected Qualifiers: COPD type: unspecified COPD Qualified Code(s): J44.9 - Chronic obstructive pulmonary disease, unspecified (4) DVT prophylaxis Current Visit: Yes Status: Acute (5) Heart failure with preserved ejection fraction Current Visit: Yes Status: Acute Qualifiers: Heart failure chronicity: acute Qualified Code(s): I50.31 - Acute diastolic (congestive) heart failure (6) Leukocytosis Current Visit: Yes Status: Acute Qualifiers: Leukocytosis type: unspecified Qualified Code(s): D72.829 - Elevated white blood cell count, unspecified - Time Spent With Patient Total time spent is greater than 50% in coordination of care (as documented) at patient's floor/unit and/or counseling patient: - Attending Attestation I performed a history and physical examination and the patient and discuss his management with the resident. I reviewed the resident's note and agree with the assessment and plan of care.
[2018-07-07] MEDS ORDERED: Ondansetron 4 MG/2 ML VIAL IVP PRN (23:45)
[2018-07-07] MEDS ORDERED: Naloxone 0.4 MG/ML INJ IVP PRN (23:45)
[2018-07-08] MEDS: Budesonide/Formoterol 80/4.5 MDI IH SCH ×3 (01:26→22:18)
[2018-07-08 04:12] LABS: Basophils # 0.1 K/mcL (0.0-0.2); Basophils % 0.3 %; Eosinophils # 0.1 K/mcL (0.0-0.6); Eosinophils % 0.7 %; Hemoglobin 12.7 g/dL (12.9-16.9); Immature Granulocytes % 0.8 % (0-4); Lymphocytes # 1.5 K/mcL (0.6-4.6); Lymphocytes % 7.8 %; Mean Corpuscular HGB Conc 33.4 g/dL (31.6-35.5); Mean Corpuscular Volume 92.7 fL (83.0-100.0); Monocytes # 1.6 K/mcL (0.0-1.3); Neutrophils # 16.4 K/mcL (1.6-8.9); Platelet Count 516 K/mcL (140-400); Red Cell Distribution Width 14.6 % (11.5-14.5); Segmented Neutrophils % 82.4 %
[2018-07-08 04:18] LABS: INR 1.5; Prothrombin Time 17.4 Seconds (9.4-12.1)
[2018-07-08 04:21] LABS: Activated Partial Thrombo Time 42.9 Seconds (26.0-36.0)
[2018-07-08 04:32] LABS: Alanine Aminotransferase 27 Units/L (7-52); Albumin 2.9 g/dL (3.5-5.7); Alkaline Phosphatase 60 Units/L (34-104); Aspartate Amino Transferase 30 Units/L (13-39); BUN/Creatinine Ratio 17 (6-26); Bilirubin,Total 0.5 mg/dL (0.3-1.0); Blood Urea Nitrogen 12 mg/dL (8-23); Calcium 8.4 mg/dL (8.6-10.3); Carbon Dioxide 27 mEq/L (23-29); Chloride 99 mEq/L (98-107); Cholesterol 94 mg/dL (< 200); Glucose 91 mg/dL (70-105); HDL Cholesterol 31 mg/dL (40-59); LDL Cholesterol,Calculated 47 mg/dL (0-99); Magnesium 1.6 mg/dL (1.6-2.6); Osmolality,Calculated 273 (280-300); Phosphorous 3.8 mg/dL (2.7-4.5); Potassium 3.5 mEq/L (3.5-5.1); Sodium 132 mEq/L (136-145); Total Protein 5.9 g/dL (6.4-8.9); Triglycerides 78 mg/dL (< 150); eGFR For Non-African Americans > 60 (> 60)
[2018-07-08] MEDS: *HR* Rivaroxaban 15 MG TABLET PO SCH ×2 (08:58→20:45)
[2018-07-08] MEDS: Nicotine 14 MG PATCH.TD24 TD SCH (08:59)
[2018-07-08] MEDS: Furosemide 40 MG/4 ML VIAL IVP SCH ×2 (08:59→16:36)
[2018-07-08] MEDS ORDERED: Furosemide 40 MG/4 ML VIAL IVP SCH (09:00)
[2018-07-08] MEDS ORDERED: Ipratropium/Albuterol Neb 3 ML IH PRN (09:05)
--- NOTE | 2018-07-08 09:57 | Internal Med Progress Note ---
Addendum entered and electronically signed by Jacek Talavera DO 07/08/18 14:24: The history, physical exam, and medical decision making was performed by the de dical student either while I was physically present and actively involved or I personally re-performed the exam and medical decision making. I have verified the accuracy of the medical student's documentation with regards to the history, physical exam findings, and medical decision making on 07/08/18. See below attestation. Original Note: <Kareem Diaz S - Last Filed: 07/08/18 13:34> Hospitalist Progress Note - Encounter Date of Encounter: 07/08/18 Time of Encounter: 09:30 - Subjective Interval History: Mr. Jung is laying in his bed comfortably. He states he feels better than yesterday, but still not back to his baseline. He states he still has b/l ankle swelling. He states the leg swelling has been going on for the past 10-14 days. He states he had SOB on exertion when he came into the ED, but he is not SOB today. He states he has had issues w/ SOB for a long time. He reports feeling better after being treated w/ Lasix. Patient states his erythema and b/l LE pain did improve on the antibiotics. He denies fevers, chills, CP, palpitations, syncope, SOB, wheezing, cough w/ sputum production, abdominal pain, n/v, melena, hematochezia, dysuria, or hematuria. Patient states he is a pack/day smoker; drinks maybe 3 -12oz beers on most days in the summer, but does not drink much alcohol during the winter season. - Exam Vitals: Temp Pulse Resp BP Pulse Ox 99.1 F 83 16 104/66 93 07/08/18 07:23 07/08/18 07:23 07/08/18 07:28 07/08/18 07:23 07/08/18 07:28 Exam: General: non-distress, alert, pleasant. Heart: RRR, pulse was regular and 2+ Lungs: CTAB, no wheezes or rhonchi GI: non-tender to palpation and bowel sounds present in all 4 quadrants Extremities: DP pulses were present; 1+ pitting edema b/l shins; mild erythema noted on b/l feet; skin is warm; b/l ankles have moderate edema. Mild calf tenderness on L skin: no new rashes or stasis dermatitis noted on examination. - Assessment and Plan (1) Heart failure with preserved ejection fraction Current Visit: Yes Status: Acute Assessment and Plan: Per history: -Has had b/l LE edema for last couple weeks that improved when treated for b/l LE cellulitis but worsened this morning -Progressive dyspnea over last 10days, not at rest only on exertion. -Edema is b/l; symmetric and +1 pitting to mid calf -BNP is 223 -TTE 06/27/18: hyperdynamic LV, EF 70-75%, mild LV diastolic dysfunction, normal RV structure and function, no significant valvular dysfunction -CTA chest yesterday: No PE, small pericardial effusion, small L pleural effusion, with minimal atelectasis -Patient's dyspnea improved when given Lasix -Will continue lasix IV, 40mg BID today for symptomatic improvement -Urine studies will be done to look for a Nephrotic syndrome causes (2) Cellulitis Current Visit: No Status: Acute Assessment and Plan: Per history: -b/l cellulitis vs. b/l lower extremity edema 2/2 HF -Patient was given Doxycyline and Augmentin in last hospital visit -He has 2 days left of his current antibiotic course, continue home meds (3) COPD (chronic obstructive pulmonary disease) Current Visit: No Status: Chronic Assessment and Plan: Per history -Significant smoking hx of >50 pack years and continues to smoke 1 ppd -Never had PFT previously to diagnose COPD -Breathing improved when started using symbicort at home -Will continue symbicort and have nebs prn (4) Leukocytosis Current Visit: Yes Status: Acute Assessment and Plan: Etiology: Steroids, cellulitis -WBC count 20.4 on arrival, currently it is at 19.8. -Patient is afebrile and lung exam did not raise suspicion for pneumonia -Patient takes symbicort at home and had nebs in ED -trend WBC for now (5) Hyponatremia Current Visit: Yes Status: Acute Assessment and Plan: Etiology: Unclear, but possibilities include fatty liver disease, alcohol, poor diet -Na 131 on arrival, but currently at 132. -Monitor Na for now (6) Alcoholism Current Visit: Yes Status: Chronic Assessment and Plan: Per hx -has hx of fatty liver disease -patient does not currently drink as much -albumin was low at 2.9, but unlikely to be causing isolated lower extremity swelling -may consider replacing albumin if patient stops responding to Lasix tx (7) Deep vein thrombosis of lower extremity Current Visit: No Status: Acute Assessment and Plan: Per Hx -Left sided -Diagnosed 06/26/[address] [facility] -Patient on Xarleto 15mg BID, will continue this until 07/18/18. After that the patient should switch to 20mg once a day until 3 months duration criteria is met (8) DVT prophylaxis Current Visit: Yes Status: Ruled-out Assessment and Plan: Per hx diagnosed 10 days ago: -Continue home Rivaroxaban - Time Spent with Patient Total time spent is greater than 50% in coordination of care (as documented) at patient's floor/unit and/or counseling patient: 25 - 35 minutes Plan of Care Discussed with: patient Internal Medicine: Result - Labs CBC & Chem 7: 07/08/18 02:43 07/08/18 02:43 Labs: Short CBC 07/07/18 07/08/18 Range/Units 19:19 02:43 WBC 20.4 H 19.8 H (4.3-11.1) K/mcL Hgb 13.1 12.7 L (12.9-16.9) g/dL Hct 39.2 38.0 (37.5-50.1) % Plt Count 504 H 516 H (140-400) K/mcL Neutrophils # 16.4 H (1.6-8.9) K/mcL BMP 07/07/18 07/08/18 19:19 02:43 Sodium 131 L 132 L Potassium 3.8 3.5 Chloride 100 99 Carbon Dioxide 25 27 BUN 13 12 Creatinine 0.57 L 0.71 Glucose 76 91 Calcium 8.4 L 8.4 L Cardiac Enzymes 07/07/18 Range/Units 19:19 Troponin I 0.03 (< 0.04) ng/mL Liver Function 07/08/18 Range/Units 02:43 Total Bilirubin 0.5 (0.3-1.0) mg/dL AST 30 (13-39) Units/L ALT 27 (7-52) Units/L Alkaline Phosphatase 60 (34-104) Units/L Albumin 2.9 L (3.5-5.7) g/dL - ABG Interpretation ABG results: PT/INR, D-dimer PT 17.4 Seconds (9.4-12.1) H 07/08/18 02:43 - Impressions Impressions Chest CTA 07/07/18 18:50 IMPRESSION: No findings to suggest pulmonary embolus. Small pericardial effusion. Small pleural effusion on the left with minimal associated atelectasis. No acute abnormality otherwise noted. D/ / Isai Damian / Isai Damian Interpreting Provider: Isai Damian Consult Discharge Plan - Plan Referrals: NONE,PCP [Primary Care Provider] - <Jacek Talavera - Last Filed: 07/08/18 14:18> Hospitalist Progress Note - Encounter Date of Encounter: 07/08/18 - Exam Vitals: Temp Pulse Resp BP Pulse Ox 98.8 F 88 18 101/63 92 07/08/18 11:34 07/08/18 11:34 07/08/18 11:34 07/08/18 11:34 07/08/18 11:34 - Assessment and Plan (1) Alcoholism Current Visit: Yes Status: Chronic (2) Hyponatremia Current Visit: Yes Status: Acute (3) COPD (chronic obstructive pulmonary disease) Current Visit: No Status: Chronic (4) DVT prophylaxis Current Visit: Yes Status: Ruled-out (5) Heart failure with preserved ejection fraction Current Visit: Yes Status: Acute (6) Leukocytosis Current Visit: Yes Status: Acute (7) Pleural effusion Current Visit: Yes Status: Acute (8) Cellulitis Current Visit: No Status: Acute (9) Cellulitis Current Visit: Yes Status: Acute - Time Spent with Patient Total time spent is greater than 50% in coordination of care (as documented) at patient's floor/unit and/or counseling patient: Internal Medicine: Result - Labs CBC & Chem 7: 07/08/18 02:43 07/08/18 02:43 Labs: Short CBC 07/07/18 07/08/18 Range/Units 19:19 02:43 WBC 20.4 H 19.8 H (4.3-11.1) K/mcL Hgb 13.1 12.7 L (12.9-16.9) g/dL Hct 39.2 38.0 (37.5-50.1) % Plt Count 504 H 516 H (140-400) K/mcL Neutrophils # 16.4 H (1.6-8.9) K/mcL BMP 07/07/18 07/08/18 19:19 02:43 Sodium 131 L 132 L Potassium 3.8 3.5 Chloride 100 99 Carbon Dioxide 25 27 BUN 13 12 Creatinine 0.57 L 0.71 Glucose 76 91 Calcium 8.4 L 8.4 L Cardiac Enzymes 07/07/18 Range/Units 19:19 Troponin I 0.03 (< 0.04) ng/mL Liver Function 07/08/18 Range/Units 02:43 Total Bilirubin 0.5 (0.3-1.0) mg/dL AST 30 (13-39) Units/L ALT 27 (7-52) Units/L Alkaline Phosphatase 60 (34-104) Units/L Albumin 2.9 L (3.5-5.7) g/dL - ABG Interpretation ABG results: PT/INR, D-dimer PT 17.4 Seconds (9.4-12.1) H 07/08/18 02:43 - Impressions Impressions Chest CTA 07/07/18 18:50 IMPRESSION: No findings to suggest pulmonary embolus. Small pericardial effusion. Small pleural effusion on the left with minimal associated atelectasis. No acute abnormality otherwise noted. D/ / Isai Damian / Isai Damian Interpreting Provider: Isai Damian - Attending Attestation I examined this patient and my medical decision-making was reviewed with the Resident Physician on 07/08/18. I agree with the documented findings, disposition and treatment plan as described except to the extent set forth below. Mr Jung is currently in observation for acute exac CHF. He is finishing abx for cellulitis. He remains moderate to high risk due to potential for worsening clinical status. Mr Jung is feeling OK. He is breathing better than yesterday. Has some swelling around his ankles. Able to move around better today. No GI issues. Exam Alert Comfortable resting in bed. Mucus membranes dry Heart reg - not tachy at this time Scattered rales bilaterally Abd soft and nontender now Some edema bilaterally Moves all extremities. No rash I/P 1. Acute exac diastolic CHF - continue IV diuresis today. Possible d/c tomorrow if continues to improve. 2. Cellulitis bilateral lower extremities - complete abx course 3. COPD - not in exacerbation 4. Hyponatremia - monitoring sodium 5. Chronic ETOH Further diagnoses and plan as above. __ <Kareem Diaz - Last Filed: 07/08/18 13:34> (1) Heart failure with preserved ejection fraction Qualifiers: Heart failure chronicity: acute Qualified Code(s): I50.31 - Acute diastolic (congestive) heart failure (2) Cellulitis Qualifiers: Site of cellulitis: extremity Site of cellulitis of extremity: lower extremity Laterality: unspecified laterality Qualified Code(s): L03.119 - Cellulitis of unspecified part of limb (3) COPD (chronic obstructive pulmonary disease) Qualifiers: COPD type: unspecified COPD Qualified Code(s): J44.9 - Chronic obstructive pulmonary disease, unspecified (4) Leukocytosis Qualifiers: Leukocytosis type: unspecified Qualified Code(s): D72.829 - Elevated white blood cell count, unspecified (7) Deep vein thrombosis of lower extremity Qualifiers: Affected thrombotic vein of extremity: other lower extremity vein Chronicity: acute Laterality: left Qualified Code(s): I82.492 - Acute embolism and thrombosis of other specified deep vein of left lower extremity <Jacek Talavera - Last Filed: 07/08/18 14:18> (3) COPD (chronic obstructive pulmonary disease) Qualifiers: COPD type: unspecified COPD Qualified Code(s): J44.9 - Chronic obstructive pulmonary disease, unspecified (5) Heart failure with preserved ejection fraction Qualifiers: Heart failure chronicity: acute Qualified Code(s): I50.31 - Acute diastolic (congestive) heart failure (6) Leukocytosis Qualifiers: Leukocytosis type: unspecified Qualified Code(s): D72.829 - Elevated white blood cell count, unspecified (8) Cellulitis Qualifiers: Site of cellulitis: extremity Site of cellulitis of extremity: lower extremity Laterality: right Qualified Code(s): L03.115 - Cellulitis of right lower limb (9) Cellulitis Qualifiers: Site of cellulitis: extremity Site of cellulitis of extremity: lower extremity Laterality: left Qualified Code(s): L03.116 - Cellulitis of left lower limb
[2018-07-08] MEDS: cloNIDine HCl 0.1 MG TABLET PO SCH (10:42)
[2018-07-08] MEDS: Doxycycline 100 MG CAPSULE PO SCH ×2 (10:42→20:44)
--- NOTE | 2018-07-08 11:46 | Electrocardiograph Report ---
[place] [id number] Test Date: 2018-07-07 Pat Name: Parag Jung Department: EXAM[facility]1 Room: 2A38 Gender: M Adult Care Provider: : 1955 Requested By: Janet Evans Order Number: [id number] Reading MD: David Valentin Measurements Intervals [place] Rate: 79 P: 73 DE: 132 QRS: -62 QRSD: 94 T: 81 QT: 388 QTc: 445 Interpretive Statements Sinus rhythm Left anterior fascicular block Possible anterior infarct, old Electronically Signed On 07-08-2018 11:44:57 EST by David Valentin
[2018-07-08 14:49] LABS: Bilirubin,Urine Negative (Negative); Blood,Urine Negative (Negative); Clarity,Urine Clear (Clear); Color,Urine Yellow (Yellow); Glucose,Urine (UA) Normal (Normal); Ketones,Urine Negative (Negative); Leukocyte Esterase,Urine Negative (Negative); Nitrite,Urine Negative (Negative); PH,Urine 6.5 pH Units (5.0-8.0); Protein,Urine Negative (Neg-Trace); Specific Gravity,Urine 1.008 (1.010-1.025); Urobilinogen,Urine Normal (Normal)
[2018-07-08] MEDS: Acetaminophen 325 MG TABLET PO PRN (16:35)
[2018-07-09 06:28] LABS: BUN/Creatinine Ratio 20 (6-26); Blood Urea Nitrogen 14 mg/dL (8-23); Calcium 8.5 mg/dL (8.6-10.3); Carbon Dioxide 26 mEq/L (23-29); Chloride 98 mEq/L (98-107); Glucose 106 mg/dL (70-105); Magnesium 1.8 mg/dL (1.6-2.6); Osmolality,Calculated 273 (280-300); Potassium 3.7 mEq/L (3.5-5.1); Sodium 131 mEq/L (136-145); eGFR For Non-African Americans > 60 (> 60)
[2018-07-09 06:57] LABS: Basophils # 0.1 K/mcL (0.0-0.2); Basophils % 0.3 %; Eosinophils # 0.1 K/mcL (0.0-0.6); Eosinophils % 0.5 %; Hematocrit 36.5 % (37.5-50.1); Hemoglobin 12.4 g/dL (12.9-16.9); Immature Granulocytes % 0.9 % (0-4); Lymphocytes # 1.6 K/mcL (0.6-4.6); Lymphocytes % 8.3 %; Mean Corpuscular Hemoglobin 31.5 pg (28.0-33.3); Mean Corpuscular Volume 92.6 fL (83.0-100.0); Mean Platelet Volume 10.1 fL (9.4-12.4); Monocytes # 1.1 K/mcL (0.0-1.3); Monocytes % 5.6 %; Neutrophils # 16.2 K/mcL (1.6-8.9); Platelet Count 430 K/mcL (140-400); Red Blood Count 3.94 M/mcL (4.19-5.50); Red Cell Distribution Width 14.6 % (11.5-14.5); Segmented Neutrophils % 84.4 %
[2018-07-09] MEDS: Doxycycline 100 MG CAPSULE PO SCH ×2 (08:03→20:01)
[2018-07-09] MEDS: cloNIDine HCl 0.1 MG TABLET PO SCH (08:03)
[2018-07-09] MEDS: Nicotine 14 MG PATCH.TD24 TD SCH (08:03)
[2018-07-09] MEDS: *HR* Rivaroxaban 15 MG TABLET PO SCH ×2 (08:03→20:01)
[2018-07-09] MEDS: Furosemide 40 MG/4 ML VIAL IVP SCH ×2 (08:03→17:00)
[2018-07-09] MEDS: Budesonide/Formoterol 80/4.5 MDI IH SCH ×2 (09:03→20:16)
[2018-07-09] MEDS: Acetaminophen 325 MG TABLET PO PRN ×2 (10:58→21:48)
[2018-07-09] MEDS ORDERED: Ketorolac 30 MG/ML VIAL IVP ONE (14:26)
--- NOTE | 2018-07-09 16:16 | Internal Med Progress Note ---
Hospitalist Progress Note - Encounter Date of Encounter: 07/09/18 Time of Encounter: 09:45 - Subjective Interval History: Mr Jung is currently in observation for acute exac CHF. He remains moderate to high risk. Mr Jung is having a lot of diffuse joint pain today. No fever or chills. Feels his swelling and edema is slowly improving but still present. Breathing slowly improving. No GI issues. Some cough but is chronic. - Exam Vitals: Temp Pulse Resp BP Pulse Ox 98.4 F 83 17 103/70 92 07/09/18 12:07 07/09/18 12:07 07/09/18 12:07 07/09/18 12:07 07/09/18 12:07 Exam: General: Alert and oriented. Comfortable at this time. Skin: Normal color, no rash, no lesions. H: Normocephalic. EENT: EOMI, Mucus membranes moist. Cardiovascular: Not tachycardic. No murmur heard. Regular. Lungs: Scattered basilar rales. No wheeze Abdomen: Soft, non-tender, Normal bowel sounds. Extremities: Some warmth to all extremities. No joint effusions. Neurological: Normal cognition and motor skills. Pulses: radial pulses normal +2. Rest of the physical exam is non contributory - Assessment and Plan (1) Heart failure with preserved ejection fraction Current Visit: Yes Status: Acute Assessment and Plan: -Overall appears to be slowly improving. Will continue IV Lasix tonight and reassess tomorrow. Recheck electrolytes in AM due to diuresis. (2) Hyponatremia Current Visit: Yes Status: Acute Assessment and Plan: Has issues with chronic hyponatremia. Has remained stable over last 2 days. Most likely related to hypervolemia. (3) Alcoholism Current Visit: Yes Status: Chronic Assessment and Plan: -Chronic issue. No signs of withdrawal. (4) COPD (chronic obstructive pulmonary disease) Current Visit: No Status: Chronic Assessment and Plan: Pt reports chronic cough with sputum production. Does not feel it has worsened. (5) DVT prophylaxis Current Visit: Yes Status: Ruled-out (6) Leukocytosis Current Visit: Yes Status: Acute Assessment and Plan: -Remains elevated but differential shows mature neutrophils. May need further work up as outpatient if does not resolve. (7) Cellulitis Current Visit: No Status: Acute Assessment and Plan: Complete abx today. (8) Cellulitis Current Visit: Yes Status: Acute Assessment and Plan: Complete abx today (9) DVT (deep venous thrombosis) Current Visit: Yes Status: Acute Assessment and Plan: Recent acute DVT of L gastrocnemius vein. On Xarelto. - Time Spent with Patient Total time spent is greater than 50% in coordination of care (as documented) at patient's floor/unit and/or counseling patient: Internal Medicine: Result - Labs CBC & Chem 7: 07/09/18 05:55 07/09/18 05:55 Labs: Short CBC 07/09/18 Range/Units 05:55 WBC 19.2 H (4.3-11.1) K/mcL Hgb 12.4 L (12.9-16.9) g/dL Hct 36.5 L (37.5-50.1) % Plt Count 430 H (140-400) K/mcL Neutrophils # 16.2 H (1.6-8.9) K/mcL BMP 07/09/18 05:55 Sodium 131 L Potassium 3.7 Chloride 98 Carbon Dioxide 26 BUN 14 Creatinine 0.70 Glucose 106 H Calcium 8.5 L - ABG Interpretation ABG results: PT/INR, D-dimer PT 17.4 Seconds (9.4-12.1) H 07/08/18 02:43 Consult Discharge Plan - Plan Referrals: NONE,PCP [Primary Care Provider] - (1) Heart failure with preserved ejection fraction Qualifiers: Heart failure chronicity: acute Qualified Code(s): I50.31 - Acute diastolic (congestive) heart failure (4) COPD (chronic obstructive pulmonary disease) Qualifiers: COPD type: chronic bronchitis Chronic bronchitis type: simple Qualified Code(s): J41.0 - Simple chronic bronchitis (6) Leukocytosis Qualifiers: Leukocytosis type: unspecified Qualified Code(s): D72.829 - Elevated white blood cell count, unspecified (7) Cellulitis Qualifiers: Site of cellulitis: extremity Site of cellulitis of extremity: lower extremity Laterality: right Qualified Code(s): L03.115 - Cellulitis of right lower limb (8) Cellulitis Qualifiers: Site of cellulitis: extremity Site of cellulitis of extremity: lower extremity Laterality: left Qualified Code(s): L03.116 - Cellulitis of left lower limb (9) DVT (deep venous thrombosis) Qualifiers: DVT location: lower extremity Affected thrombotic vein of extremity: other lower extremity vein Laterality: left Qualified Code(s): I82.492 - Acute embolism and thrombosis of other specified deep vein of left lower extremity
[2018-07-10 03:42] LABS: BUN/Creatinine Ratio 31 (6-26); Blood Urea Nitrogen 28 mg/dL (8-23); Calcium 8.1 mg/dL (8.6-10.3); Carbon Dioxide 26 mEq/L (23-29); Chloride 101 mEq/L (98-107); Glucose 107 mg/dL (70-105); Magnesium 1.8 mg/dL (1.6-2.6); Osmolality,Calculated 282 (280-300); Potassium 3.5 mEq/L (3.5-5.1); Sodium 133 mEq/L (136-145); eGFR For Non-African Americans > 60 (> 60)
[2018-07-10 04:14] LABS: Hematocrit 34.2 % (37.5-50.1); Hemoglobin 11.6 g/dL (12.9-16.9); Immature Platelets 1.7 % (1.1-6.1); Mean Corpuscular HGB Conc 33.9 g/dL (31.6-35.5); Mean Corpuscular Hemoglobin 31.2 pg (28.0-33.3); Mean Corpuscular Volume 91.9 fL (83.0-100.0); Mean Platelet Volume 9.8 fL (9.4-12.4); Red Blood Count 3.72 M/mcL (4.19-5.50); Red Cell Distribution Width 14.9 % (11.5-14.5)
[2018-07-10] MEDS: Budesonide/Formoterol 80/4.5 MDI IH SCH ×2 (07:41→20:15)
[2018-07-10] MEDS: Furosemide 40 MG/4 ML VIAL IVP SCH ×2 (08:19→18:28)
[2018-07-10] MEDS: Doxycycline 100 MG CAPSULE PO SCH ×2 (08:19→21:41)
[2018-07-10] MEDS: cloNIDine HCl 0.1 MG TABLET PO SCH (08:19)
[2018-07-10] MEDS: Nicotine 14 MG PATCH.TD24 TD SCH (08:19)
[2018-07-10] MEDS: *HR* Rivaroxaban 15 MG TABLET PO SCH ×2 (08:19→21:41)
--- NOTE | 2018-07-10 10:33 | Internal Med Progress Note ---
Hospitalist Progress Note - Encounter Date of Encounter: 07/10/18 Time of Encounter: 09:40 - Subjective Interval History: Mr Jung is currently in observation for acute exac CHF. He remains moderate to high risk. Mr Jung is having some parasthesias R arm. Joints overall not as achy. No CP. Less SOB. Thinks edema is slowly improving. No GI issues. Left message on VM of daughter Theresa. - Exam Vitals: Temp Pulse Resp BP Pulse Ox 98.1 F 82 18 109/57 92 07/10/18 07:32 07/10/18 07:32 07/10/18 07:41 07/10/18 07:32 07/10/18 07:41 Exam: General: Alert and oriented. Comfortable at this time. Skin: Normal color, no rash, no lesions. H: Normocephalic. EENT: EOMI, Mucus membranes moist. Cardiovascular: Not tachycardic. Regular. Lungs: Some wheeze bilateral with rhonchi. Abdomen: Soft, non-tender, Normal bowel sounds. Extremities: No joint effusions. OA. Neurological: Normal cognition Sensation intact bilaterally. Strength equal bilaterally. Pulses: radial pulses normal +2. Rest of the physical exam is non contributory - Assessment and Plan (1) Heart failure with preserved ejection fraction Current Visit: Yes Status: Acute Assessment and Plan: -Continues to slowly improve. Last admission he was recommended outpatient stress test. Due to CHF exacerbation will do stress test tomorrow and if negative anticipate d/c. (2) Hyponatremia Current Visit: Yes Status: Acute Assessment and Plan: Slowly improving. Continue current management. (3) Alcoholism Current Visit: Yes Status: Chronic Assessment and Plan: -Chronic issue. No signs of withdrawal. (4) COPD (chronic obstructive pulmonary disease) Current Visit: No Status: Chronic Assessment and Plan: Some congestion this AM but says this is normal in AM. No change in meds at this time. (5) DVT prophylaxis Current Visit: Yes Status: Ruled-out Assessment and Plan: -Continue home rivaroxaban (6) Leukocytosis Current Visit: Yes Status: Acute Assessment and Plan: -Remains elevated but differential shows mature neutrophils. Would recommend further evaluation as outpatient if persists - may need to see heme. (7) Cellulitis Current Visit: No Status: Acute Assessment and Plan: Nearly completed abx (8) Cellulitis Current Visit: Yes Status: Acute Assessment and Plan: As above. (9) DVT (deep venous thrombosis) Current Visit: Yes Status: Acute Assessment and Plan: Recent acute DVT of L gastrocnemius vein. On Xarelto. Having parasthesias of RUE - he is concerned about another clot No other neuro findings. Check duplex. - Time Spent with Patient Total time spent is greater than 50% in coordination of care (as documented) at patient's floor/unit and/or counseling patient: Internal Medicine: Result - Labs CBC & Chem 7: 07/10/18 02:54 07/10/18 02:54 Labs: Short CBC 07/10/18 Range/Units 02:54 WBC 19.7 H (4.3-11.1) K/mcL Hgb 11.6 L (12.9-16.9) g/dL Hct 34.2 L (37.5-50.1) % Plt Count 428 H (140-400) K/mcL BMP 07/10/18 02:54 Sodium 133 L Potassium 3.5 Chloride 101 Carbon Dioxide 26 BUN 28 H Creatinine 0.90 Glucose 107 H Calcium 8.1 L - ABG Interpretation ABG results: PT/INR, D-dimer PT 17.4 Seconds (9.4-12.1) H 07/08/18 02:43 Consult Discharge Plan - Plan Referrals: NONE,PCP [Primary Care Provider] - (1) Heart failure with preserved ejection fraction Qualifiers: Heart failure chronicity: acute Qualified Code(s): I50.31 - Acute diastolic (congestive) heart failure (4) COPD (chronic obstructive pulmonary disease) Qualifiers: COPD type: chronic bronchitis Chronic bronchitis type: simple Qualified Code(s): J41.0 - Simple chronic bronchitis (6) Leukocytosis Qualifiers: Leukocytosis type: unspecified Qualified Code(s): D72.829 - Elevated white blood cell count, unspecified (7) Cellulitis Qualifiers: Site of cellulitis: extremity Site of cellulitis of extremity: lower extremity Laterality: right Qualified Code(s): L03.115 - Cellulitis of right lower limb (8) Cellulitis Qualifiers: Site of cellulitis: extremity Site of cellulitis of extremity: lower extremity Laterality: left Qualified Code(s): L03.116 - Cellulitis of left lower limb (9) DVT (deep venous thrombosis) Qualifiers: DVT location: lower extremity Affected thrombotic vein of extremity: other lower extremity vein Laterality: left Qualified Code(s): I82.492 - Acute embolism and thrombosis of other specified deep vein of left lower extremity
[2018-07-10] MEDS ORDERED: traMADol 50 MG TABLET PO PRN (13:45)
[2018-07-11 05:36] LABS: Hematocrit 35.9 % (37.5-50.1); Hemoglobin 12.3 g/dL (12.9-16.9); Mean Corpuscular HGB Conc 34.3 g/dL (31.6-35.5); Mean Corpuscular Hemoglobin 31.5 pg (28.0-33.3); Mean Corpuscular Volume 92.1 fL (83.0-100.0); Platelet Count 406 K/mcL (140-400); Red Cell Distribution Width 14.6 % (11.5-14.5)
[2018-07-11 05:53] LABS: BUN/Creatinine Ratio 26 (6-26); Blood Urea Nitrogen 19 mg/dL (8-23); Calcium 8.8 mg/dL (8.6-10.3); Carbon Dioxide 27 mEq/L (23-29); Chloride 99 mEq/L (98-107); Glucose 97 mg/dL (70-105); Osmolality,Calculated 278 (280-300); Potassium 3.6 mEq/L (3.5-5.1); Sodium 133 mEq/L (136-145); eGFR For Non-African Americans > 60 (> 60)
[2018-07-11] MEDS ORDERED: Regadenoson 0.4 MG/5 ML SYRINGE IVP ONE (06:00)
[2018-07-11 07:37] VITALS: BP 116/74
--- NOTE | 2018-07-11 08:47 | Internal Med Progress Note ---
<Kareem Diaz S - Last Filed: 07/11/18 11:27> Hospitalist Progress Note - Encounter Date of Encounter: 07/11/18 Time of Encounter: 08:30 - Subjective Interval History: Mr. Jung is laying in his bed comfortably. He states his b/l ankle swelling has gotten much better. He states he had SOB on exertion when he came into the E D, but he is not SOB currently. He states he has had issues w/ SOB for a long time. He reports feeling better after being treated w/ Lasix. He is complaining of paresthia of his R arm from elbow down, he says it has been going on for the past day or so. He occasionally has noticed it before the hospitalization as well. Patient was educated that he may need nerve conduction studies, but can be managed by his PCP. He admits to having melontic stools for the past 2 days. He denies fevers, chills, CP, palpitations, syncope, SOB, wheezing, cough w/ sputum production, abdominal pain, n/v, dyspepsia, post-prandial abdominal pain, hematochezia, dysuria, or hematuria. Patient states he is a pack/day smoker; drinks maybe 3 -12oz beers on most days in the summer, but does not drink much alcohol during the winter season. - Exam Vitals: Temp Pulse Resp BP Pulse Ox 98.2 F 88 16 116/74 94 07/11/18 07:34 07/11/18 07:34 07/11/18 07:34 07/11/18 07:34 07/11/18 07:34 Exam: General: non-distress, alert, pleasant. Heart: RRR, pulse was regular and 2+ Lungs: CTAB, no wheezes or rhonchi GI: non-tender to palpation and bowel sounds present in all 4 quadrants Extremities: DP pulses were present; minimal edema b/l shins; erythema has improved on b/l feet; skin is warm; ankle edema has been improved tremendously. Mild calf tenderness on L Neuro: tapping along the R cubital tunnel reproduces numbness/tingling; Phalens was positive b/l wrists skin: no new rashes or stasis dermatitis noted on examination. - Assessment and Plan (1) Heart failure with preserved ejection fraction Current Visit: Yes Status: Acute Assessment and Plan: B/l swelling has improved since admission -BNP is 223 -TTE 06/27/18: hyperdynamic LV, EF 70-75%, mild LV diastolic dysfunction, normal RV structure and function, no significant valvular dysfunction -CTA chest yesterday: No PE, small pericardial effusion, small L pleural effusion, with minimal atelectasis -Patient's dyspnea improved when given Lasix -Will continue lasix IV, 40mg BID today for symptomatic improvement -Urine studies were not significant for any proteinuria. -Patient will be getting a stress test at 10AM today. If negative, possible d/c (2) Cellulitis Current Visit: No Status: Acute Assessment and Plan: Per history: -b/l cellulitis vs. b/l lower extremity edema 2/2 HF -Patient was given Doxycyline and Augmentin in last hospital visit -He has 2 days left of his current antibiotic course, patient completed antibiotic course within hospital stay. (3) COPD (chronic obstructive pulmonary disease) Current Visit: No Status: Chronic Assessment and Plan: Per history -Significant smoking hx of >50 pack years and continues to smoke 1 ppd -Never had PFT previously to diagnose COPD -Breathing improved when started using symbicort at home -Will continue symbicort and have nebs prn (4) Paresthesia of arm Current Visit: Yes Status: Acute Assessment and Plan: etiology: ulnar and median nerve compression -Patient states his R arm has been feeling numb since yesterday. -Comes and goes -tapping on cubital tunnel reproduces the numbness and tingling; phalen + -Manage as outpatient (5) Leukocytosis Current Visit: Yes Status: Acute Assessment and Plan: Etiology: Steroids, cellulitis -WBC count 20.4 on arrival, currently it is at 15.1, down-trending -Patient is afebrile and lung exam did not raise suspicion for pneumonia -Patient takes symbicort at home and had nebs in ED -Labs can be stopped (6) Hyponatremia Current Visit: Yes Status: Acute Assessment and Plan: Etiology: Unclear, but possibilities include fatty liver disease, alcohol, poor diet -Na 131 on arrival, but currently at 133. -Seems like patient's baseline and patient is asymptomatic, labs can be stopped (7) Alcoholism Current Visit: Yes Status: Chronic Assessment and Plan: Per hx -has hx of fatty liver disease -patient does not currently drink as much -albumin was low at 2.9, but unlikely to be causing isolated lower extremity swelling (8) Deep vein thrombosis of lower extremity Current Visit: No Status: Acute Assessment and Plan: Per Hx -Left sided -Diagnosed 06/26/18 at [facility] -Patient on Xarleto 15mg BID, will continue this until 07/18/18. After that the patient should switch to 20mg once a day until 3 months duration criteria is met (9) DVT prophylaxis Current Visit: Yes Status: Ruled-out Assessment and Plan: Per hx diagnosed 10 days ago: -Continue home Rivaroxaban - Time Spent with Patient Total time spent is greater than 50% in coordination of care (as documented) at patient's floor/unit and/or counseling patient: Internal Medicine: Result - Labs CBC & Chem 7: 07/11/18 04:40 07/11/18 04:40 Labs: Short CBC 07/11/18 Range/Units 04:40 WBC 15.1 H (4.3-11.1) K/mcL Hgb 12.3 L (12.9-16.9) g/dL Hct 35.9 L (37.5-50.1) % Plt Count 406 H (140-400) K/mcL BMP 07/11/18 04:40 Sodium 133 L Potassium 3.6 Chloride 99 Carbon Dioxide 27 BUN 19 Creatinine 0.72 Glucose 97 Calcium 8.8 - ABG Interpretation ABG results: PT/INR, D-dimer PT 17.4 Seconds (9.4-12.1) H 07/08/18 02:43 Consult Discharge Plan - Plan Instructions: Heart Failure (DC) Referrals: NONE,PCP [Primary Care Provider] - Pollo Jean-Baptiste DO [Partnered Physician] - 07/20/18 12:00 pm (Please follow up as schedule...) Prescriptions: Furosemide [Lasix] 20 mg PO 0900,1700 #60 tablet <Jacek Talavera - Last Filed: 07/11/18 15:03> Hospitalist Progress Note - Encounter Date of Encounter: 07/11/18 - Exam Vitals: Temp Pulse Resp BP Pulse Ox 98.2 F 88 16 116/74 94 07/11/18 07:34 07/11/18 07:34 07/11/18 07:34 07/11/18 07:34 07/11/18 07:34 - Assessment and Plan (1) Cellulitis Current Visit: No Status: Acute (2) Alcoholism Current Visit: Yes Status: Chronic (3) Hyponatremia Current Visit: Yes Status: Acute (4) COPD (chronic obstructive pulmonary disease) Current Visit: No Status: Chronic (5) DVT prophylaxis Current Visit: Yes Status: Ruled-out (6) Heart failure with preserved ejection fraction Current Visit: Yes Status: Acute (7) Leukocytosis Current Visit: Yes Status: Acute (8) DVT (deep venous thrombosis) Current Visit: Yes Status: Acute - Time Spent with Patient Total time spent is greater than 50% in coordination of care (as documented) at patient's floor/unit and/or counseling patient: Internal Medicine: Result - Labs CBC & Chem 7: 07/11/18 04:40 07/11/18 04:40 Labs: Short CBC 07/11/18 Range/Units 04:40 WBC 15.1 H (4.3-11.1) K/mcL Hgb 12.3 L (12.9-16.9) g/dL Hct 35.9 L (37.5-50.1) % Plt Count 406 H (140-400) K/mcL BMP 07/11/18 04:40 Sodium 133 L Potassium 3.6 Chloride 99 Carbon Dioxide 27 BUN 19 Creatinine 0.72 Glucose 97 Calcium 8.8 - ABG Interpretation ABG results: PT/INR, D-dimer PT 17.4 Seconds (9.4-12.1) H 07/08/18 02:43 - Attending Attestation Please see discharge summary of this date. <Kareem Diaz S - Last Filed: 07/11/18 11:27> (1) Heart failure with preserved ejection fraction Qualifiers: Heart failure chronicity: acute Qualified Code(s): I50.31 - Acute diastolic (congestive) heart failure (2) Cellulitis Qualifiers: Site of cellulitis: extremity Site of cellulitis of extremity: lower extremity Laterality: right Qualified Code(s): L03.115 - Cellulitis of right lower limb (3) COPD (chronic obstructive pulmonary disease) Qualifiers: COPD type: chronic bronchitis Chronic bronchitis type: simple Qualified Code(s): J41.0 - Simple chronic bronchitis (5) Leukocytosis Qualifiers: Leukocytosis type: unspecified Qualified Code(s): D72.829 - Elevated white blood cell count, unspecified (8) Deep vein thrombosis of lower extremity Qualifiers: Affected thrombotic vein of extremity: other lower extremity vein Chronicity: acute Laterality: left Qualified Code(s): I82.492 - Acute embolism and thrombosis of other specified deep vein of left lower extremity <Jacek Talavera - Last Filed: 07/11/18 15:03> (1) Cellulitis Qualifiers: Site of cellulitis: extremity Site of cellulitis of extremity: lower extremity Laterality: right Qualified Code(s): L03.115 - Cellulitis of right lower limb (4) COPD (chronic obstructive pulmonary disease) Qualifiers: COPD type: chronic bronchitis Chronic bronchitis type: simple Qualified Code(s): J41.0 - Simple chronic bronchitis (6) Heart failure with preserved ejection fraction Qualifiers: Heart failure chronicity: acute Qualified Code(s): I50.31 - Acute diastolic (congestive) heart failure (7) Leukocytosis Qualifiers: Leukocytosis type: unspecified Qualified Code(s): D72.829 - Elevated white blood cell count, unspecified (8) DVT (deep venous thrombosis) Qualifiers: DVT location: lower extremity Affected thrombotic vein of extremity: other lower extremity vein Laterality: left Qualified Code(s): I82.492 - Acute embolism and thrombosis of other specified deep vein of left lower extremity
[2018-07-11] MEDS: Nicotine 14 MG PATCH.TD24 TD SCH (09:33)
[2018-07-11] MEDS: Furosemide 40 MG/4 ML VIAL IVP SCH (09:35)
[2018-07-11] MEDS: Budesonide/Formoterol 80/4.5 MDI IH SCH (10:47)
[2018-07-11] MEDS: *HR* Rivaroxaban 15 MG TABLET PO SCH (12:55)
[2018-07-11] MEDS: cloNIDine HCl 0.1 MG TABLET PO SCH (12:55)
[2018-07-11] MEDS: Doxycycline 100 MG CAPSULE PO SCH (14:09)
--- NOTE | 2018-07-11 14:31 | Discharge Summary ---
<Shar Berg - Last Filed: 07/11/18 14:33> - NOTES TO OUTPATIENT PROVIDER Notes to Outpatient Provider: Patient admitted with CHF exacerbation. Patient also complained of right arm paresthesias and found to have SVT in cephalic vein around the elbow. Continue Eliquis. Patient found to be anemic hemoglobin level 11.6, which has now improved. Patient reported intermittent melena. Recommend outpatient workup/colonoscopy. (Last colonoscopy 2014 with polypectomies). Orders not resulted at time of discharge: Pending orders 07/10/18 10:37 NM luna perf SPECT multi [NM] Routine Date of Encounter: 07/11/18 Time of Encounter: 13:50 - Discharge Diagnosis (1) Heart failure with preserved ejection fraction Priority: Primary Status: Acute Qualifiers: Heart failure chronicity: acute Qualified Code(s): I50.31 - Acute diastolic (congestive) heart failure (2) Cellulitis Priority: Secondary Status: Acute Qualifiers: Site of cellulitis: extremity Site of cellulitis of extremity: lower extremity Laterality: right Qualified Code(s): L03.115 - Cellulitis of right lower limb (3) Hyponatremia Priority: Secondary Status: Acute (4) Alcoholism Priority: Secondary Status: Chronic (5) COPD (chronic obstructive pulmonary disease) Priority: Secondary Status: Chronic Qualifiers: COPD type: chronic bronchitis Chronic bronchitis type: simple Qualified Code(s): J41.0 - Simple chronic bronchitis (6) Leukocytosis Priority: Secondary Status: Acute Qualifiers: Leukocytosis type: unspecified Qualified Code(s): D72.829 - Elevated white blood cell count, unspecified (7) DVT prophylaxis Priority: Secondary Status: Ruled-out (8) DVT (deep venous thrombosis) Priority: Secondary Status: Acute Qualifiers: DVT location: lower extremity Affected thrombotic vein of extremity: other lower extremity vein Laterality: left Qualified Code(s): I82.492 - Acute embolism and thrombosis of other specified deep vein of left lower extremity Hospital course: Mr. Jung is a 63 year old male with a h/o diastolic CHF, HTN and tobacco dependence who was previously admitted 10 days prior to arrival with bilateral LE edema, cellulitis, and found to have an acute LLE DVT. BNP was 223 and CTA chest revealed small pericardial effusion and small L pleural effusion with minimal atelectasis. TTE 06/27/18 revealed hyperdynamic LV, EF 70-75%, mild LV diastolic dysfunction, normal RV structure and function, no significant valvular dysfunction. Patient's dyspnea improved with Lasix IV. During last admission, he was recommended to have an outpatient stress test. Patient complained of right arm paresthesias and found to have SVT in cephalic vein around the elbow. Due to CHF exacerbation stress test was performed during this admission which came back negative. Patient completed 14 day course of Doxy/ Augmentin for cellulitis. Also, patient was found to be anemic hemoglobin level 11.6, which improved during hospital course. Patient reported intermittent melena and last colonoscopy 2014 with polypectomies. Continue Rivaroxaban for DVT and recommend outpatient anemia workup/colonoscopy. Patient instructed to follow up with his PCP in 1-2 weeks. Discharge discussed with: patient, nurse, social work - Time Spent with Patient Total time spent providing and/or coordinating discharge services: - Discharge Medications Prescriptions: Furosemide [Lasix] 20 mg PO 0900,1700 #60 tablet Home Medications: Citalopram Hydrobromide [Citalopram HBr] 40 mg PO DAILY 06/28/18 [History] Simvastatin [Zocor] 10 mg PO HS 06/28/18 [History] Tramadol HCl [Ultram] 50 mg PO HS PRN 06/28/18 [History] cloNIDine HCl [CloNIDine HCl] 0.1 mg PO DAILY 06/28/18 [History] Albuterol Sulfate [Albuterol Inhaler] 2 puff IH Q4HR PRN #1 inhaler 06/29/18 [Rx] Budesonide/Formoterol 80/4.5 [Symbicort 80/4.5] 2 puff IH BID #1 hfa.aer.ad 06/29/18 [Rx] Lactobacillus Acidophilus [Acidophilus] 1 each PO BID #30 capsule 06/29/18 [Rx] Rivaroxaban [Xarelto] 15 mg PO BID #40 tablet 06/29/18 [Rx] Rivaroxaban [Xarelto] 20 mg PO 1700 07/08/18 [History] Furosemide [Lasix] 20 mg PO 0900,1700 #60 tablet 07/11/18 [Rx] Allergies/Adverse Reactions: Allergy/AdvReac Type Severity Reaction Status Date / Time No Known Allergies Allergy Verified 06/28/18 13:40 Date of admission: 07/07/18 22:04 Primary care physician: PCP NONE Consults: 07/08/18 08:50 Consult to Nurse Navigator [CONS] Routine Comment: chf/copd Discharging clinician: Shar Berg Anticipated date of discharge: 07/11/18 - Constitutional Vitals: Temp Pulse Resp BP Pulse Ox 98.2 F 88 16 116/74 94 07/11/18 07:34 07/11/18 07:34 07/11/18 07:34 07/11/18 07:34 07/11/18 07:34 General appearance: Present: cooperative, A&O X 3, pleasant, no acute distress, answers questions appropriately Exam: awake - Head Head exam: Present: atraumatic, normocephalic - Eye Eye exam: Present: PERRL, conjuntiva pink, sclera anicteric Pupils: Present: PERRL - ENT ENT exam: Present: mucous membranes moist, normal oropharynx - Neck Neck exam general surgery: Present: normal inspection, supple, trachea midline. Absent: lymphadenopathy - Respiratory Respiratory exam: Present: CTAB. Absent: accessory muscle use, rales, rhonchi, wheezes - Cardiovascular Cardiovascular exam: Present: RRR, +S1, +S2. Absent: diastolic murmur, gallop, rubs, systolic murmur - GI/Abdominal GI/Abdominal exam: Present: normal bowel sounds, soft, no peritoneal signs. Absent: distended, guarding, tenderness - Extremities Exam Extremities exam: Present: normal capillary refill, warm, radial pulses palpable and symmetrical. Absent: calf tenderness, cyanotic, pedal edema Additional comments: tapping along the R cubital tunnel reproduces numbness/tingling; Phalens was positive b/l wrists - Back Exam Back exam: Present: normal inspection. Absent: paraspinal tenderness, tenderness - Neurological Exam Neurological exam: Present: CN II-XII intact, oriented X3, no focal deficits. Absent: pronater drift, facial droop, speech deficit Additional comments: tapping along the R cubital tunnel reproduces numbness/tingling; Phalens was positive b/l wrists - Psychiatric Psychiatric exam: Present: normal affect, normal mood - Skin Skin exam: Present: dry, intact, warm - Patient Status Disposition: Home, Self-Care Condition: Fair Functional capacity at discharge: independent ambulation Overall status at discharge: patient is back to baseline - Discharge Instructions Instructions: Heart Failure (DC) Follow Up With: NONE,PCP [Primary Care Provider] - Pollo Jean-Baptiste DO [Partnered Physician] - 07/20/18 12:00 pm (Please follow up as schedule...) - Diet and Activity Activity: increase activity as tolerated, resume usual activities as tolerated Diet: regular diet (cardiac) <Jacek Talavera - Last Filed: 07/11/18 15:08> Orders not resulted at time of discharge: Pending orders 07/10/18 10:37 NM luna perf SPECT multi [NM] Routine Date of Encounter: 07/11/18 - Discharge Diagnosis (1) Cellulitis Status: Acute Qualifiers: Site of cellulitis: extremity Site of cellulitis of extremity: lower extremity Laterality: right Qualified Code(s): L03.115 - Cellulitis of right lower limb (2) Alcoholism Status: Chronic (3) Hyponatremia Status: Acute (4) COPD (chronic obstructive pulmonary disease) Status: Chronic Qualifiers: COPD type: chronic bronchitis Chronic bronchitis type: simple Qualified Code(s): J41.0 - Simple chronic bronchitis (5) DVT prophylaxis Status: Ruled-out (6) Heart failure with preserved ejection fraction Status: Acute Qualifiers: Heart failure chronicity: acute Qualified Code(s): I50.31 - Acute diastolic (congestive) heart failure (7) Leukocytosis Status: Acute Qualifiers: Leukocytosis type: unspecified Qualified Code(s): D72.829 - Elevated white blood cell count, unspecified (8) DVT (deep venous thrombosis) Status: Acute Qualifiers: DVT location: lower extremity Affected thrombotic vein of extremity: other lower extremity vein Laterality: left Qualified Code(s): I82.492 - Acute embolism and thrombosis of other specified deep vein of left lower extremity Hospital course: Mr. Jung is a 63 year old male - Time Spent with Patient Total time spent providing and/or coordinating discharge services: Date of admission: 07/07/18 22:04 Primary care physician: PCP NONE Consults: 07/08/18 08:50 Consult to Nurse Navigator [CONS] Routine Comment: chf/copd - Constitutional Vitals: Temp Pulse Resp BP Pulse Ox 98.2 F 88 16 116/74 94 07/11/18 07:34 07/11/18 07:34 07/11/18 07:34 07/11/18 07:34 07/11/18 07:34 - Attending Attestation I examined this patient and my medical decision-making was reviewed with the Resident Physician on 07/11/18. I agree with the documented findings, disposition and treatment plan as described except to the extent set forth below. Mr Jung has been in observation for edema felt to be exac diastolic CHF. He had stress test which is negative for ischemia. He has improved with diuresis. He is afebrile and ready for discharge home. Exam alert. Comfortable Mucus membranes dry Heart reg and not tachy No wheeze No edema Abd soft Plan D/C home today Follow up with PCP. Having ? dark stools - needs further work up. Low dose Lasix at discharge.
== END 2018-07-11 15:44 | disposition home or self-care (01) ==
LOC: 2ANU 18:32 → EMEROOARM 18:32 → SUATTDRO 22:04 → 2ANU 22:27
PROVIDERS: ADMIT Internal Medicine; ATTEND Internal Medicine

== ENCOUNTER 2019-07-16 22:43 | Inpatient (IN) ==
[2019-07-16 23:20] LABS: Basophils # 0.1 K/mcL (0.0-0.2); Basophils % 0.7 %; Eosinophils # 0.3 K/mcL (0.0-0.6); Eosinophils % 3.1 %; Hematocrit 37.4 % (37.5-50.1); Hemoglobin 13.1 g/dL (12.9-16.9); Immature Granulocytes % 0.4 % (0-4); Lymphocytes # 2.2 K/mcL (0.6-4.6); Lymphocytes % 22.1 %; Mean Corpuscular Hemoglobin 32.5 pg (28.0-33.3); Mean Corpuscular Volume 92.8 fL (83.0-100.0); Mean Platelet Volume 9.1 fL (9.4-12.4); Monocytes # 1.1 K/mcL (0.0-1.3); Monocytes % 11.4 %; Neutrophils # 6.3 K/mcL (1.6-8.9); Platelet Count 328 K/mcL (140-400); Red Blood Count 4.03 M/mcL (4.19-5.50); Red Cell Distribution Width 14.8 % (11.5-14.5); Segmented Neutrophils % 62.3 %
[2019-07-16 23:28] LABS: INR 1.1; Prothrombin Time 12.4 Seconds (9.4-12.1)
[2019-07-16 23:38] LABS: Color,Urine Yellow (Yellow)
[2019-07-16 23:39] LABS: Bilirubin,Urine Negative (Negative); Blood,Urine Negative (Negative); Clarity,Urine Clear (Clear); Glucose,Urine (UA) Normal (Normal); Ketones,Urine Negative (Negative); Leukocyte Esterase,Urine Negative (Negative); Nitrite,Urine Negative (Negative); Protein,Urine Negative (Neg-Trace); Specific Gravity,Urine 1.012 (1.010-1.025); Urobilinogen,Urine Normal (Normal)
[2019-07-16 23:46] LABS: Alanine Aminotransferase 82 Units/L (7-52); Albumin 3.3 g/dL (3.5-5.7); Alkaline Phosphatase 52 Units/L (34-104); Aspartate Amino Transferase 151 Units/L (13-39); BUN/Creatinine Ratio 31 (6-26); Bilirubin,Direct 0.1 mg/dL (0.0-0.2); Bilirubin,Indirect 0.1 mg/dL (0.0-1.0); Bilirubin,Total 0.2 mg/dL (0.3-1.0); Blood Urea Nitrogen 10 mg/dL (8-23); Calcium 8.6 mg/dL (8.6-10.3); Carbon Dioxide 25 mEq/L (23-29); Chloride 100 mEq/L (98-107); Ethanol 86 mg/dL (Less than 10); Globulin 3.4 g/dL (2.4-3.5); Glucose 86 mg/dL (70-105); Lipase 54 Units/L (11-82); Osmolality,Calculated 272 (280-300); Potassium 3.4 mEq/L (3.5-5.1); Sodium 132 mEq/L (136-145); Total Protein 6.7 g/dL (6.4-8.9); eGFR For African Americans > 60 (> 60); eGFR For Non-African Americans > 60 (> 60)
[2019-07-16 23:56] LABS: Troponin I 0.16 ng/mL (< 0.04)
[2019-07-16] MEDS ORDERED: Aspirin 81 MG TAB.CHEW PO ONE (23:59)
[2019-07-17] MEDS ORDERED: Naloxone 0.4 MG/ML INJ IVP PRN (02:59)
[2019-07-17] MEDS ORDERED: Potassium Chloride Elixir 20 MEQ/15 ML UDC PO ONE (03:17)
[2019-07-17] MEDS ORDERED: *HR* LORazepam 2 MG/ML VIAL IVP PRN ×3 (03:18)
[2019-07-17] MEDS: Furosemide 40 MG/4 ML VIAL IVP SCH ×2 (03:45→16:26)
[2019-07-17 04:17] LABS: Hepatitis B Surface Antigen Nonreactive (Nonreactive)
[2019-07-17 04:41] LABS: Bilirubin,Urine Negative (Negative); Blood,Urine Negative (Negative); Clarity,Urine Clear (Clear); Color,Urine Yellow (Yellow); Glucose,Urine (UA) Normal (Normal); Ketones,Urine Negative (Negative); Leukocyte Esterase,Urine Negative (Negative); Nitrite,Urine Negative (Negative); Protein,Urine Negative (Neg-Trace); Specific Gravity,Urine 1.012 (1.010-1.025); Urobilinogen,Urine Normal (Normal)
[2019-07-17 04:46] LABS: Hepatitis B Core IgM Nonreactive (Nonreactive)
[2019-07-17 04:47] LABS: Hepatitis C Virus Antibody Nonreactive (Nonreactive)
[2019-07-17 04:48] LABS: Hepatitis A Antibody IgM Nonreactive (Nonreactive)
[2019-07-17 05:02] LABS: Basophils # 0.1 K/mcL (0.0-0.2); Basophils % 0.8 %; Eosinophils # 0.4 K/mcL (0.0-0.6); Hemoglobin 12.1 g/dL (12.9-16.9); Immature Granulocytes % 0.3 % (0-4); Lymphocytes # 2.5 K/mcL (0.6-4.6); Lymphocytes % 26.5 %; Mean Corpuscular HGB Conc 33.6 g/dL (31.6-35.5); Mean Corpuscular Hemoglobin 32.1 pg (28.0-33.3); Mean Corpuscular Volume 95.5 fL (83.0-100.0); Mean Platelet Volume 9.7 fL (9.4-12.4); Monocytes # 0.9 K/mcL (0.0-1.3); Monocytes % 9.8 %; Neutrophils # 5.5 K/mcL (1.6-8.9); Platelet Count 323 K/mcL (140-400); Red Blood Count 3.77 M/mcL (4.19-5.50); Red Cell Distribution Width 14.6 % (11.5-14.5); Segmented Neutrophils % 58.6 %; White Blood Count 9.3 K/mcL (4.3-11.1)
[2019-07-17 05:10] LABS: Protein/Creatinine Ratio,Urine 0.31 mg/mg (0.00-0.20); Sodium, Urine 59.5 mEq/L
[2019-07-17 05:20] LABS: Alanine Aminotransferase 76 Units/L (7-52); Albumin 3.2 g/dL (3.5-5.7); Albumin/Globulin Ratio 0.9 (1.1-2.2); Alkaline Phosphatase 45 Units/L (34-104); Aspartate Amino Transferase 149 Units/L (13-39); BUN/Creatinine Ratio 33 (6-26); Bilirubin,Total 0.2 mg/dL (0.3-1.0); Blood Urea Nitrogen 9 mg/dL (8-23); Calcium 8.5 mg/dL (8.6-10.3); Carbon Dioxide 25 mEq/L (23-29); Chloride 100 mEq/L (98-107); Chol/HDL Ratio 3.2 (0-4.9); Cholesterol 87 mg/dL (< 200); Globulin 3.4 g/dL (2.4-3.5); Glucose 82 mg/dL (70-105); HDL Cholesterol 27 mg/dL (40-59); LDL Cholesterol,Calculated 39 mg/dL (0-99); Magnesium 1.7 mg/dL (1.6-2.6); Osmolality,Calculated 276 (280-300); Phosphorous 3.8 mg/dL (2.7-4.5); Potassium 3.4 mEq/L (3.5-5.1); Sodium 134 mEq/L (136-145); Total Protein 6.6 g/dL (6.4-8.9); Triglycerides 106 mg/dL (< 150); eGFR For African Americans > 60 (> 60); eGFR For Non-African Americans > 60 (> 60)
[2019-07-17 05:29] LABS: Thyroid Stimulating Hormone 4.008 mcIU/mL (0.340-5.600)
[2019-07-17 07:43] LABS: Estimated Average Glucose 108 mg/dl
[2019-07-17] MEDS: Budesonide/Formoterol 80/4.5 1 PUFF INH IH SCH ×2 (07:58→20:29)
[2019-07-17] MEDS: cloNIDine HCl 0.1 MG TABLET PO SCH (08:45)
[2019-07-17] MEDS: Vitamin B Complex/Vit C/Vit E 1 EACH TABLET PO SCH (08:45)
[2019-07-17] MEDS: Thiamine (B-1) 100 MG TABLET PO SCH (08:45)
[2019-07-17] MEDS: Folic Acid 1 MG TABLET PO SCH (08:45)
[2019-07-17] MEDS ORDERED: Furosemide 20 MG TABLET PO SCH (09:00)
[2019-07-17] MEDS ORDERED: *HR* Rivaroxaban 10 MG TABLET PO SCH (17:00)
[2019-07-18 05:31] LABS: Basophils # 0.1 K/mcL (0.0-0.2); Basophils % 0.8 %; Eosinophils # 0.3 K/mcL (0.0-0.6); Eosinophils % 2.8 %; Hematocrit 38.4 % (37.5-50.1); Hemoglobin 12.7 g/dL (12.9-16.9); Immature Granulocytes % 0.4 % (0-4); Lymphocytes # 2.1 K/mcL (0.6-4.6); Lymphocytes % 21.4 %; Mean Corpuscular HGB Conc 33.1 g/dL (31.6-35.5); Mean Corpuscular Hemoglobin 31.8 pg (28.0-33.3); Mean Corpuscular Volume 96.2 fL (83.0-100.0); Mean Platelet Volume 9.6 fL (9.4-12.4); Monocytes # 1.1 K/mcL (0.0-1.3); Neutrophils # 6.2 K/mcL (1.6-8.9); Platelet Count 344 K/mcL (140-400); Red Blood Count 3.99 M/mcL (4.19-5.50); Red Cell Distribution Width 14.7 % (11.5-14.5); Segmented Neutrophils % 63.6 %; White Blood Count 9.8 K/mcL (4.3-11.1)
[2019-07-18 05:51] LABS: BUN/Creatinine Ratio 40 (6-26); Blood Urea Nitrogen 16 mg/dL (8-23); Calcium 8.8 mg/dL (8.6-10.3); Carbon Dioxide 27 mEq/L (23-29); Chloride 99 mEq/L (98-107); Glucose 88 mg/dL (70-105); Magnesium 1.7 mg/dL (1.6-2.6); Osmolality,Calculated 277 (280-300); Phosphorous 4.5 mg/dL (2.7-4.5); Potassium 3.7 mEq/L (3.5-5.1); Sodium 133 mEq/L (136-145); eGFR For African Americans > 60 (> 60); eGFR For Non-African Americans > 60 (> 60)
[2019-07-18] MEDS: Budesonide/Formoterol 80/4.5 1 PUFF INH IH SCH ×2 (07:52→20:00)
[2019-07-18] MEDS: Folic Acid 1 MG TABLET PO SCH (09:15)
[2019-07-18] MEDS: cloNIDine HCl 0.1 MG TABLET PO SCH (09:15)
[2019-07-18] MEDS: Aspirin 81 MG TAB.CHEW PO SCH (09:15)
[2019-07-18] MEDS: Vitamin B Complex/Vit C/Vit E 1 EACH TABLET PO SCH (09:15)
[2019-07-18] MEDS: Furosemide 40 MG/4 ML VIAL IVP SCH ×2 (09:15→17:28)
[2019-07-18] MEDS: Thiamine (B-1) 100 MG TABLET PO SCH (09:15)
[2019-07-19 05:31] LABS: Basophils # 0.1 K/mcL (0.0-0.2); Basophils % 0.6 %; Eosinophils # 0.2 K/mcL (0.0-0.6); Eosinophils % 2.4 %; Hematocrit 35.9 % (37.5-50.1); Hemoglobin 12.4 g/dL (12.9-16.9); Immature Granulocytes % 0.4 % (0-4); Lymphocytes # 2.2 K/mcL (0.6-4.6); Mean Corpuscular HGB Conc 34.5 g/dL (31.6-35.5); Mean Corpuscular Hemoglobin 31.9 pg (28.0-33.3); Mean Corpuscular Volume 92.3 fL (83.0-100.0); Mean Platelet Volume 9.4 fL (9.4-12.4); Monocytes # 1.1 K/mcL (0.0-1.3); Monocytes % 10.8 %; Neutrophils # 6.5 K/mcL (1.6-8.9); Platelet Count 320 K/mcL (140-400); Red Blood Count 3.89 M/mcL (4.19-5.50); Red Cell Distribution Width 14.7 % (11.5-14.5); Segmented Neutrophils % 63.8 %; White Blood Count 10.2 K/mcL (4.3-11.1)
[2019-07-19 05:53] LABS: BUN/Creatinine Ratio 39 (6-26); Blood Urea Nitrogen 22 mg/dL (8-23); Calcium 8.9 mg/dL (8.6-10.3); Carbon Dioxide 28 mEq/L (23-29); Chloride 96 mEq/L (98-107); Glucose 99 mg/dL (70-105); Magnesium 1.8 mg/dL (1.6-2.6); Osmolality,Calculated 281 (280-300); Phosphorous 4.7 mg/dL (2.7-4.5); Potassium 3.6 mEq/L (3.5-5.1); Sodium 134 mEq/L (136-145); eGFR For African Americans > 60 (> 60); eGFR For Non-African Americans > 60 (> 60)
[2019-07-19] MEDS: Budesonide/Formoterol 80/4.5 1 PUFF INH IH SCH ×2 (07:23→20:06)
[2019-07-19 08:37] LABS: ANA IgG by ELISA DETECTED (None Detected)
[2019-07-19] MEDS: Furosemide 40 MG/4 ML VIAL IVP SCH (09:29)
[2019-07-19] MEDS ORDERED: Ketorolac 15 MG/ML VIAL IVP PRN (09:59)
[2019-07-19] MEDS: Folic Acid 1 MG TABLET PO SCH (12:10)
[2019-07-19] MEDS: Thiamine (B-1) 100 MG TABLET PO SCH (12:10)
[2019-07-19] MEDS: cloNIDine HCl 0.1 MG TABLET PO SCH (12:10)
[2019-07-19] MEDS: Aspirin 81 MG TAB.CHEW PO SCH (12:10)
[2019-07-19] MEDS: Vitamin B Complex/Vit C/Vit E 1 EACH TABLET PO SCH (12:10)
[2019-07-19] MEDS ORDERED: ISOVUE-370 200 ML INFUS..BTL ONE (13:49)
[2019-07-19] MEDS ORDERED: Nitroglycerin 1,000 MCG/10 ML VIAL IV ONE (13:49)
[2019-07-19] MEDS ORDERED: Heparin 1,000 UNITS/500 mL 500 ML ONE (13:49)
[2019-07-19] MEDS ORDERED: 0.9 % Sodium Chloride 2,000 ML ONE (13:49)
[2019-07-19] MEDS ORDERED: *HR* Heparin 10,000 UNIT/10 ML VIAL ONE (13:49)
[2019-07-19] MEDS ORDERED: *HR* Midazolam HCl 2 MG/2 ML VIAL ONE (14:16)
[2019-07-19] MEDS ORDERED: *HR* FentaNYL (PF) 100 MCG/2 ML VIAL ONE (14:16)
[2019-07-19] MEDS: Furosemide 40 MG TABLET PO SCH (17:24)
[2019-07-20 05:49] LABS: BUN/Creatinine Ratio 53 (6-26); Blood Urea Nitrogen 23 mg/dL (8-23); Carbon Dioxide 30 mEq/L (23-29); Chloride 96 mEq/L (98-107); Glucose 101 mg/dL (70-105); Magnesium 1.9 mg/dL (1.6-2.6); Osmolality,Calculated 282 (280-300); Phosphorous 4.5 mg/dL (2.7-4.5); Potassium 3.8 mEq/L (3.5-5.1); Sodium 134 mEq/L (136-145); eGFR For African Americans > 60 (> 60); eGFR For Non-African Americans > 60 (> 60)
[2019-07-20] MEDS: Budesonide/Formoterol 80/4.5 1 PUFF INH IH SCH (07:52)
[2019-07-20] MEDS: Thiamine (B-1) 100 MG TABLET PO SCH (09:18)
[2019-07-20] MEDS: Furosemide 40 MG TABLET PO SCH ×2 (09:19→17:54)
[2019-07-20] MEDS: Folic Acid 1 MG TABLET PO SCH (09:19)
[2019-07-20] MEDS: cloNIDine HCl 0.1 MG TABLET PO SCH (09:19)
[2019-07-20] MEDS: Aspirin 81 MG TAB.CHEW PO SCH (09:19)
[2019-07-20] MEDS: Vitamin B Complex/Vit C/Vit E 1 EACH TABLET PO SCH (10:20)
[2019-07-20 15:29] VITALS: BP 90/54
[2019-07-20 19:35] LABS: ANA HEp-2 IgG IFA DETECTED (<1:80); Anti Nuclear Ab Pattern SPECKLED
== END 2019-07-20 18:20 | disposition home or self-care (01) | DRG 287 ==
LOC: EMEROOARM 22:43 → 3BNU 22:43 → SUATTDRO 07-17 01:16 → 3BNU 07-17 01:53
PROVIDERS: ADMIT Internal Medicine; ATTEND Internal Medicine

== ENCOUNTER 2020-02-29 13:11 | Inpatient (IN) ==
[2020-02-29] MEDS ORDERED: Pantoprazole 40 MG VIAL IVP ONE (13:27)
[2020-02-29] MEDS ORDERED: Isovue-370 500 ML BOTTLE IVP ONE (13:27)
[2020-02-29] MEDS ORDERED: 0.9 % Sodium Chloride 1,000 ML IVC ONE (13:27)
[2020-02-29 14:14] LABS: INR 1.4; Prothrombin Time 15.7 Seconds (9.4-12.1)
[2020-02-29 14:15] LABS: Alanine Aminotransferase 14 Units/L (7-52); Albumin 3.1 g/dL (3.5-5.7); Albumin/Globulin Ratio 1.1 (1.1-2.2); Alkaline Phosphatase 34 Units/L (34-104); Aspartate Amino Transferase 25 Units/L (13-39); BUN/Creatinine Ratio 126 (6-26); Bilirubin,Total 0.3 mg/dL (0.3-1.0); Blood Urea Nitrogen 54 mg/dL (8-23); Carbon Dioxide 24 mEq/L (23-29); Chloride 103 mEq/L (98-107); Globulin 2.8 g/dL (2.4-3.5); Glucose 118 mg/dL (70-105); Osmolality,Calculated 298 (280-300); Potassium 3.5 mEq/L (3.5-5.1); Sodium 136 mEq/L (136-145); Total Protein 5.9 g/dL (6.4-8.9); Troponin I 0.06 ng/mL (< 0.04); eGFR For African Americans > 60 (> 60); eGFR For Non-African Americans > 60 (> 60)
[2020-02-29 15:36] LABS: Basophils % 0.1 %; Immature Granulocytes % 0.7 % (0-4); Lymphocytes # 1.5 K/mcL (0.6-4.6); Mean Corpuscular HGB Conc 31.3 g/dL (31.6-35.5); Mean Corpuscular Hemoglobin 29.2 pg (28.0-33.3); Mean Corpuscular Volume 93.4 fL (83.0-100.0); Mean Platelet Volume 9.6 fL (9.4-12.4); Monocytes # 0.6 K/mcL (0.0-1.3); Monocytes % 5.5 %; Platelet Count 241 K/mcL (140-400); Red Blood Count 1.37 M/mcL (4.19-5.50); Red Cell Distribution Width 19.1 % (11.5-14.5); Segmented Neutrophils % 79.7 %; White Blood Count 10.7 K/mcL (4.3-11.1)
[2020-02-29 15:39] LABS: Neutrophils # 8.5 K/mcL (1.6-8.9)
[2020-02-29 15:40] LABS: Hematocrit 12.8 % (37.5-50.1)
[2020-02-29] MEDS ORDERED: 0.9 % Sodium Chloride 1,000 ML ONE (15:45)
[2020-02-29 15:56] LABS: Bilirubin,Urine Negative (Negative); Blood,Urine Negative (Negative); Clarity,Urine Clear (Clear); Color,Urine Colorless (Yellow); Glucose,Urine (UA) Normal (Normal); Ketones,Urine Negative (Negative); Leukocyte Esterase,Urine Negative (Negative); Nitrite,Urine Negative (Negative); Protein,Urine Negative (Neg-Trace); Specific Gravity,Urine 1.015 (1.010-1.025); Urobilinogen,Urine Normal (Normal)
[2020-02-29 16:05] LABS: Hypochromasia Present (Not Present); Microcytosis Present (Not Present); Platelet Estimate Normal (Normal)
[2020-02-29] MEDS ORDERED: 0.9 % Sodium Chloride 500 ML ONE (17:04)
[2020-02-29] MEDS: Pantoprazole 40 MG in 0.9 % Sodium Chloride Mini Bag 100 ML IVC SCH ×2 (17:49→22:07)
[2020-02-29] MEDS: Octreotide 400 MCG in 0.9 % Sodium Chloride 100 ML IVC SCH (17:53)
[2020-02-29 18:04] LABS: Adenovirus Not Detected (Not Detect); Bordetella Pertussis Not Detected (Not Detect); Chlamydophila pneumoniae Not Detected (Not Detect); Coronavirus 229E Not Detected (Not Detect); Coronavirus HKU1 Not Detected (Not Detect); Coronavirus NL63 Not Detected (Not Detect); Coronavirus OC43 Not Detected (Not Detect); Human Metapneumovirus Not Detected (Not Detect); Human Rhinovirus/Enterovirus Not Detected (Not Detect); Influenza A Subtype 2009 H1 Not Detected (Not Detect); Influenza B Not Detected (Not Detect); Mycoplasma pneumoniae Not Detected (Not Detect); Parainfluenza Virus 1 Not Detected (Not Detect); Parainfluenza Virus 2 Not Detected (Not Detect); Parainfluenza Virus 3 Not Detected (Not Detect); Parainfluenza Virus 4 Not Detected (Not Detect); Respiratory Syncytial Virus Not Detected (Not Detect); SARS-CoV-2 Not Detected (Not Detect)
[2020-02-29] MEDS ORDERED: Naloxone 0.4 MG/ML INJ IVP PRN (18:31)
[2020-02-29] MEDS ORDERED: *HR* LORazepam 2 MG/ML VIAL IVP PRN ×3 (20:55)
[2020-02-29] MEDS ORDERED: Albuterol 2.5 MG/3 ML NEBULIZER IH PRN (21:51)
[2020-02-29] MEDS: Ipratropium/Albuterol Neb 3 ML IH SCH (22:45)
[2020-02-29] MEDS: cefTRIAXone 1,000 MG in Water for inj. (sterile) 10 ML IVP SCH (23:52)
[2020-03-01 00:39] LABS: Basophils % 0.3 %; Immature Granulocytes % 0.6 % (0-4); Lymphocytes % 19.4 %; Mean Platelet Volume 9.8 fL (9.4-12.4)
[2020-03-01 00:41] LABS: Hematocrit 17.4 % (37.5-50.1); Mean Corpuscular HGB Conc 33.3 g/dL (31.6-35.5); Mean Corpuscular Hemoglobin 30.2 pg (28.0-33.3); Mean Corpuscular Volume 90.6 fL (83.0-100.0); Monocytes # 1.3 K/mcL (0.0-1.3); Monocytes % 11.9 %; Platelet Count 204 K/mcL (140-400); Red Blood Count 1.92 M/mcL (4.19-5.50); Red Cell Distribution Width 16.2 % (11.5-14.5); Segmented Neutrophils % 67.8 %; White Blood Count 10.5 K/mcL (4.3-11.1)
[2020-03-01 00:45] LABS: Neutrophils # 7.1 K/mcL (1.6-8.9)
[2020-03-01 00:46] LABS: Hemoglobin 5.8 g/dL (12.9-16.9)
[2020-03-01] MEDS: Octreotide 400 MCG in 0.9 % Sodium Chloride 100 ML IVC SCH ×3 (02:02→17:22)
[2020-03-01] MEDS: Pantoprazole 40 MG in 0.9 % Sodium Chloride Mini Bag 100 ML IVC SCH ×5 (03:19→22:55)
[2020-03-01] MEDS: Ipratropium/Albuterol Neb 3 ML IH SCH ×4 (04:07→22:40)
[2020-03-01] MEDS ORDERED: 0.9 % Sodium Chloride 250 ML ONE (04:35)
[2020-03-01 06:59] LABS: Basophils % 0.2 %; Eosinophils % 0.2 %; Hematocrit 19.5 % (37.5-50.1); Hemoglobin 6.4 g/dL (12.9-16.9); Immature Granulocytes % 0.5 % (0-4); Lymphocytes # 1.2 K/mcL (0.6-4.6); Lymphocytes % 9.5 %; Mean Corpuscular HGB Conc 32.8 g/dL (31.6-35.5); Mean Corpuscular Volume 91.5 fL (83.0-100.0); Mean Platelet Volume 9.5 fL (9.4-12.4); Monocytes # 1.4 K/mcL (0.0-1.3); Monocytes % 10.6 %; Neutrophils # 10.1 K/mcL (1.6-8.9); Nucleated Red Blood Cells 0.2 /100 WBC (0); Platelet Count 189 K/mcL (140-400); Red Blood Count 2.13 M/mcL (4.19-5.50); Red Cell Distribution Width 16.2 % (11.5-14.5); White Blood Count 12.8 K/mcL (4.3-11.1)
[2020-03-01 10:46] LABS: INR 1.2; Prothrombin Time 13.4 Seconds (9.4-12.1)
[2020-03-01] MEDS ORDERED: Lidocaine -MPF 2% 2 ML VIAL ONE ×2 (11:24→11:25)
[2020-03-01 12:31] LABS: Hematocrit 20.1 % (37.5-50.1); Hemoglobin 6.7 g/dL (12.9-16.9)
[2020-03-01 13:27] LABS: BUN/Creatinine Ratio 81 (6-26); Blood Urea Nitrogen 29 mg/dL (8-23); Calcium 7.8 mg/dL (8.6-10.3); Carbon Dioxide 23 mEq/L (23-29); Chloride 110 mEq/L (98-107); Glucose 142 mg/dL (70-105); Osmolality,Calculated 296 (280-300); Potassium 3.3 mEq/L (3.5-5.1); Sodium 139 mEq/L (136-145); eGFR For African Americans > 60 (> 60); eGFR For Non-African Americans > 60 (> 60)
[2020-03-01] MEDS: cefTRIAXone 1,000 MG in Water for inj. (sterile) 10 ML IVP SCH (17:16)
[2020-03-01] MEDS: Thiamine (B-1) 100 MG, Folic Acid 1 MG, MVI, adult with vitamin K 10 ML in 0.9 % Sodi... IVPB SCH (17:16)
[2020-03-01 19:59] LABS: Hematocrit 21.6 % (37.5-50.1)
[2020-03-02 00:59] LABS: Hematocrit 20.9 % (37.5-50.1); Hemoglobin 6.6 g/dL (12.9-16.9)
[2020-03-02] MEDS: Octreotide 400 MCG in 0.9 % Sodium Chloride 100 ML IVC SCH ×3 (01:37→21:09)
[2020-03-02] MEDS ORDERED: 0.9 % Sodium Chloride 250 ML IVC SCH (02:30)
[2020-03-02] MEDS ORDERED: 0.9 % Sodium Chloride 250 ML ONE (03:19)
[2020-03-02] MEDS: Pantoprazole 40 MG in 0.9 % Sodium Chloride Mini Bag 100 ML IVC SCH ×4 (04:13→21:11)
[2020-03-02] MEDS: Ipratropium/Albuterol Neb 3 ML IH SCH ×2 (04:31→11:00)
[2020-03-02 05:30] LABS: BUN/Creatinine Ratio 60 (6-26); Blood Urea Nitrogen 21 mg/dL (8-23); Calcium 7.8 mg/dL (8.6-10.3); Carbon Dioxide 22 mEq/L (23-29); Chloride 110 mEq/L (98-107); Glucose 97 mg/dL (70-105); Osmolality,Calculated 291 (280-300); Potassium 3.2 mEq/L (3.5-5.1); Sodium 139 mEq/L (136-145); eGFR For African Americans > 60 (> 60); eGFR For Non-African Americans > 60 (> 60)
[2020-03-02] MEDS ORDERED: Calcium Gluconate 1gm/50mL 1 GM/50 ML BAG IVPB PRN (06:00)
[2020-03-02] MEDS: Potassium Chloride 40 MEQ/200 ML BAG IVPB PRN ×2 (06:06→08:46)
[2020-03-02 06:24] LABS: VBG Ionized Calcium 1.16 mmol/L (1.15-1.35)
[2020-03-02] MEDS: Gabapentin 300 MG CAPSULE PO SCH ×2 (08:45→22:26)
[2020-03-02 08:57] LABS: Basophils % 0.5 %; Eosinophils # 0.1 K/mcL (0.0-0.6); Eosinophils % 1.7 %; Hematocrit 24.8 % (37.5-50.1); Hemoglobin 7.7 g/dL (12.9-16.9); Immature Granulocytes % 0.6 % (0-4); Lymphocytes # 1.4 K/mcL (0.6-4.6); Lymphocytes % 20.9 %; Mean Corpuscular Hemoglobin 28.8 pg (28.0-33.3); Mean Corpuscular Volume 92.9 fL (83.0-100.0); Mean Platelet Volume 9.5 fL (9.4-12.4); Monocytes % 14.3 %; Neutrophils # 4.1 K/mcL (1.6-8.9); Nucleated Red Blood Cells 0.5 /100 WBC (0); Platelet Count 163 K/mcL (140-400); Red Blood Count 2.67 M/mcL (4.19-5.50); Red Cell Distribution Width 15.7 % (11.5-14.5); White Blood Count 6.7 K/mcL (4.3-11.1)
[2020-03-02 09:01] LABS: VBG Ionized Calcium 1.17 mmol/L (1.15-1.35)
[2020-03-02 09:14] LABS: BUN/Creatinine Ratio 56 (6-26); Blood Urea Nitrogen 18 mg/dL (8-23); Calcium 7.7 mg/dL (8.6-10.3); Carbon Dioxide 22 mEq/L (23-29); Chloride 110 mEq/L (98-107); Glucose 101 mg/dL (70-105); Magnesium 1.9 mg/dL (1.6-2.6); Osmolality,Calculated 288 (280-300); Potassium 3.4 mEq/L (3.5-5.1); Sodium 138 mEq/L (136-145); eGFR For African Americans > 60 (> 60); eGFR For Non-African Americans > 60 (> 60)
[2020-03-02] MEDS ORDERED: Ipratropium/Albuterol Neb 3 ML IH PRN (11:02)
[2020-03-02] MEDS: Budesonide/Formoterol 80/4.5 1 PUFF INH IH SCH ×2 (11:11→23:00)
[2020-03-02 15:37] LABS: Basophils % 0.4 %; Eosinophils # 0.2 K/mcL (0.0-0.6); Eosinophils % 2.4 %; Hemoglobin 8.4 g/dL (12.9-16.9); Immature Granulocytes % 0.6 % (0-4); Lymphocytes # 1.5 K/mcL (0.6-4.6); Lymphocytes % 21.3 %; Mean Corpuscular HGB Conc 32.3 g/dL (31.6-35.5); Mean Corpuscular Hemoglobin 30.2 pg (28.0-33.3); Mean Corpuscular Volume 93.5 fL (83.0-100.0); Mean Platelet Volume 9.5 fL (9.4-12.4); Monocytes # 0.9 K/mcL (0.0-1.3); Neutrophils # 4.3 K/mcL (1.6-8.9); Platelet Count 171 K/mcL (140-400); Red Blood Count 2.78 M/mcL (4.19-5.50); Red Cell Distribution Width 16.2 % (11.5-14.5); Segmented Neutrophils % 62.3 %; White Blood Count 6.9 K/mcL (4.3-11.1)
[2020-03-02 15:57] LABS: Magnesium 2.3 mg/dL (1.6-2.6); Potassium 3.7 mEq/L (3.5-5.1)
[2020-03-02] MEDS: cefTRIAXone 1,000 MG in Water for inj. (sterile) 10 ML IVP SCH (18:53)
[2020-03-02] MEDS: Thiamine (B-1) 100 MG, Folic Acid 1 MG, MVI, adult with vitamin K 10 ML in 0.9 % Sodi... IVPB SCH (18:53)
[2020-03-02 22:48] LABS: Hematocrit 25.1 % (37.5-50.1); Hemoglobin 8.2 g/dL (12.9-16.9)
[2020-03-03] MEDS ORDERED: *HR* LORazepam 2 MG/ML VIAL IVP PRN ×3 (00:38)
[2020-03-03] MEDS ORDERED: Calcium Gluconate 1gm/50mL 1 GM/50 ML BAG IVPB PRN (00:38)
[2020-03-03] MEDS ORDERED: Naloxone 0.4 MG/ML INJ IVP PRN (00:38)
[2020-03-03] MEDS ORDERED: Albuterol 2.5 MG/3 ML NEBULIZER IH PRN (00:38)
[2020-03-03] MEDS ORDERED: Potassium Chloride 40 MEQ/200 ML BAG IVPB PRN (00:38)
[2020-03-03] MEDS ORDERED: 0.9 % Sodium Chloride 250 ML IVC SCH (00:38)
[2020-03-03 02:58] LABS: Basophils % 0.4 %; Eosinophils # 0.4 K/mcL (0.0-0.6); Eosinophils % 5.2 %; Hematocrit 24.4 % (37.5-50.1); Immature Granulocytes % 0.5 % (0-4); Lymphocytes # 1.8 K/mcL (0.6-4.6); Lymphocytes % 23.3 %; Mean Corpuscular HGB Conc 32.8 g/dL (31.6-35.5); Mean Corpuscular Hemoglobin 30.8 pg (28.0-33.3); Mean Corpuscular Volume 93.8 fL (83.0-100.0); Mean Platelet Volume 9.6 fL (9.4-12.4); Monocytes # 1.1 K/mcL (0.0-1.3); Monocytes % 13.5 %; Neutrophils # 4.5 K/mcL (1.6-8.9); Nucleated Red Blood Cells 0.3 /100 WBC (0); Platelet Count 189 K/mcL (140-400); Red Cell Distribution Width 17.2 % (11.5-14.5); Segmented Neutrophils % 57.1 %; White Blood Count 7.9 K/mcL (4.3-11.1)
[2020-03-03 03:06] LABS: BUN/Creatinine Ratio 42 (6-26); Blood Urea Nitrogen 13 mg/dL (8-23); Calcium 7.5 mg/dL (8.6-10.3); Carbon Dioxide 22 mEq/L (23-29); Chloride 108 mEq/L (98-107); Glucose 88 mg/dL (70-105); Osmolality,Calculated 280 (280-300); Potassium 3.4 mEq/L (3.5-5.1); Sodium 135 mEq/L (136-145); eGFR For African Americans > 60 (> 60); eGFR For Non-African Americans > 60 (> 60)
[2020-03-03] MEDS: Octreotide 400 MCG in 0.9 % Sodium Chloride 100 ML IVC SCH ×3 (04:03→23:10)
[2020-03-03] MEDS ORDERED: Pantoprazole 40 MG VIAL IVP SCH (06:00)
[2020-03-03] MEDS: Budesonide/Formoterol 80/4.5 1 PUFF INH IH SCH ×2 (07:27→19:56)
[2020-03-03] MEDS: Gabapentin 300 MG CAPSULE PO SCH ×2 (08:39→20:41)
[2020-03-03 09:35] LABS: Hematocrit 26.9 % (37.5-50.1); Hemoglobin 8.7 g/dL (12.9-16.9)
[2020-03-03] MEDS: cefTRIAXone 1,000 MG in Water for inj. (sterile) 10 ML IVP SCH (17:23)
[2020-03-03] MEDS: Furosemide 40 MG TABLET PO SCH (17:24)
[2020-03-03] MEDS ORDERED: Thiamine (B-1) 100 MG, Folic Acid 1 MG, MVI, adult with vitamin K 10 ML in 0.9 % Sodi... IVPB SCH (18:00)
[2020-03-04 04:19] LABS: Basophils % 0.4 %; Eosinophils # 0.4 K/mcL (0.0-0.6); Eosinophils % 4.6 %; Hematocrit 26.2 % (37.5-50.1); Hemoglobin 8.4 g/dL (12.9-16.9); Immature Granulocytes % 0.4 % (0-4); Lymphocytes # 1.9 K/mcL (0.6-4.6); Mean Corpuscular HGB Conc 32.1 g/dL (31.6-35.5); Mean Corpuscular Hemoglobin 30.4 pg (28.0-33.3); Mean Corpuscular Volume 94.9 fL (83.0-100.0); Mean Platelet Volume 9.3 fL (9.4-12.4); Monocytes # 1.1 K/mcL (0.0-1.3); Monocytes % 12.4 %; Neutrophils # 5.5 K/mcL (1.6-8.9); Platelet Count 234 K/mcL (140-400); Red Blood Count 2.76 M/mcL (4.19-5.50); Red Cell Distribution Width 17.6 % (11.5-14.5); Segmented Neutrophils % 61.2 %
[2020-03-04 04:37] LABS: BUN/Creatinine Ratio 21 (6-26); Blood Urea Nitrogen 9 mg/dL (8-23); Calcium 7.4 mg/dL (8.6-10.3); Carbon Dioxide 25 mEq/L (23-29); Chloride 105 mEq/L (98-107); Glucose 116 mg/dL (70-105); Magnesium 1.8 mg/dL (1.6-2.6); Osmolality,Calculated 278 (280-300); Potassium 3.4 mEq/L (3.5-5.1); Sodium 134 mEq/L (136-145); eGFR For African Americans > 60 (> 60); eGFR For Non-African Americans > 60 (> 60)
[2020-03-04] MEDS ORDERED: Potassium Chloride 40 MEQ, Lidocaine 1% 2 ML in 0.9 % Sodium Chloride 500 ML IVPB ONE (07:23)
[2020-03-04] MEDS: Octreotide 400 MCG in 0.9 % Sodium Chloride 100 ML IVC SCH (07:38)
[2020-03-04] MEDS: Budesonide/Formoterol 80/4.5 1 PUFF INH IH SCH ×2 (08:07→21:43)
[2020-03-04] MEDS: Ipratropium/Albuterol Neb 3 ML IH PRN ×2 (08:14→23:28)
[2020-03-04] MEDS: cloNIDine HCL 0.1 MG TABLET PO SCH (08:40)
[2020-03-04] MEDS: allopurinoL 300 MG TABLET PO SCH (08:56)
[2020-03-04] MEDS: Gabapentin 300 MG CAPSULE PO SCH ×2 (08:56→19:39)
[2020-03-04] MEDS: Cyanocobalamin (B-12) 1,000 MCG TABLET PO SCH (08:57)
[2020-03-04] MEDS: Furosemide 40 MG TABLET PO SCH ×2 (08:57→16:37)
[2020-03-04] MEDS: cefTRIAXone 1,000 MG in Water for inj. (sterile) 10 ML IVP SCH (18:07)
[2020-03-04 18:43] LABS: Hematocrit 30.8 % (37.5-50.1); Hemoglobin 9.6 g/dL (12.9-16.9)
[2020-03-04] MEDS ORDERED: Sucralfate 1 GM TABLET PO SCH (22:00)
[2020-03-05 00:43] LABS: Basophils % 0.3 %; Eosinophils # 0.2 K/mcL (0.0-0.6); Eosinophils % 1.4 %; Hematocrit 30.4 % (37.5-50.1); Hemoglobin 9.4 g/dL (12.9-16.9); Immature Granulocytes % 0.6 % (0-4); Lymphocytes # 1.1 K/mcL (0.6-4.6); Lymphocytes % 10.3 %; Mean Corpuscular HGB Conc 30.9 g/dL (31.6-35.5); Mean Corpuscular Hemoglobin 29.1 pg (28.0-33.3); Mean Corpuscular Volume 94.1 fL (83.0-100.0); Mean Platelet Volume 9.6 fL (9.4-12.4); Monocytes % 9.3 %; Neutrophils # 8.5 K/mcL (1.6-8.9); Platelet Count 299 K/mcL (140-400); Red Blood Count 3.23 M/mcL (4.19-5.50); Red Cell Distribution Width 17.7 % (11.5-14.5); Segmented Neutrophils % 78.1 %; White Blood Count 10.9 K/mcL (4.3-11.1)
[2020-03-05 01:01] LABS: BUN/Creatinine Ratio 24 (6-26); Blood Urea Nitrogen 10 mg/dL (8-23); Calcium 7.9 mg/dL (8.6-10.3); Carbon Dioxide 24 mEq/L (23-29); Chloride 102 mEq/L (98-107); Glucose 107 mg/dL (70-105); Magnesium 1.5 mg/dL (1.6-2.6); Osmolality,Calculated 276 (280-300); Potassium 3.5 mEq/L (3.5-5.1); Sodium 133 mEq/L (136-145); eGFR For African Americans > 60 (> 60); eGFR For Non-African Americans > 60 (> 60)
[2020-03-05] MEDS: Budesonide/Formoterol 80/4.5 1 PUFF INH IH SCH ×2 (07:47→20:07)
[2020-03-05] MEDS: allopurinoL 300 MG TABLET PO SCH (08:38)
[2020-03-05] MEDS: Cyanocobalamin (B-12) 1,000 MCG TABLET PO SCH (08:38)
[2020-03-05] MEDS: Furosemide 40 MG TABLET PO SCH ×2 (08:39→16:48)
[2020-03-05] MEDS: Gabapentin 300 MG CAPSULE PO SCH ×2 (08:39→21:14)
[2020-03-05] MEDS: cloNIDine HCL 0.1 MG TABLET PO SCH (08:39)
[2020-03-06 04:45] LABS: Basophils % 0.3 %; Eosinophils # 0.2 K/mcL (0.0-0.6); Eosinophils % 1.5 %; Hematocrit 28.1 % (37.5-50.1); Hemoglobin 8.8 g/dL (12.9-16.9); Immature Granulocytes % 0.5 % (0-4); Lymphocytes # 1.4 K/mcL (0.6-4.6); Lymphocytes % 11.6 %; Mean Corpuscular HGB Conc 31.3 g/dL (31.6-35.5); Mean Corpuscular Hemoglobin 29.4 pg (28.0-33.3); Mean Platelet Volume 9.9 fL (9.4-12.4); Monocytes # 1.5 K/mcL (0.0-1.3); Monocytes % 12.8 %; Neutrophils # 8.6 K/mcL (1.6-8.9); Platelet Count 321 K/mcL (140-400); Red Blood Count 2.99 M/mcL (4.19-5.50); Red Cell Distribution Width 17.4 % (11.5-14.5); Segmented Neutrophils % 73.3 %; White Blood Count 11.7 K/mcL (4.3-11.1)
[2020-03-06 05:23] LABS: BUN/Creatinine Ratio 26 (6-26); Blood Urea Nitrogen 9 mg/dL (8-23); Calcium 7.6 mg/dL (8.6-10.3); Carbon Dioxide 24 mEq/L (23-29); Chloride 97 mEq/L (98-107); Ferritin 40 ng/mL (20-250); Glucose 96 mg/dL (70-105); Iron < 10 mcg/dL (65-175); Magnesium 1.8 mg/dL (1.6-2.6); Osmolality,Calculated 271 (280-300); Potassium 3.2 mEq/L (3.5-5.1); Sodium 131 mEq/L (136-145); Transferrin 218 mg/dL (203-362); eGFR For African Americans > 60 (> 60); eGFR For Non-African Americans > 60 (> 60)
[2020-03-06 05:31] LABS: Folate > 22.3 ng/mL (3.0-16.0); Vitamin B12 1347 pg/mL (250-1100)
[2020-03-06] MEDS: Furosemide 40 MG TABLET PO SCH (07:57)
[2020-03-06] MEDS: Cyanocobalamin (B-12) 1,000 MCG TABLET PO SCH (07:57)
[2020-03-06] MEDS: Metoprolol XL (24 HR) Succ 25 MG TAB.ER.24H PO SCH (07:57)
[2020-03-06] MEDS: cloNIDine HCL 0.1 MG TABLET PO SCH (07:57)
[2020-03-06] MEDS: allopurinoL 300 MG TABLET PO SCH (07:57)
[2020-03-06] MEDS: Gabapentin 300 MG CAPSULE PO SCH ×2 (07:58→20:45)
[2020-03-06] MEDS: Budesonide/Formoterol 80/4.5 1 PUFF INH IH SCH ×2 (08:08→20:20)
[2020-03-06] MEDS ORDERED: 0.9 % Sodium Chloride 500 ML IVC SCH (12:15)
[2020-03-06] MEDS ORDERED: 0.9 % Sodium Chloride 250 ML IVC SCH (12:27)
[2020-03-06 13:02] LABS: Hematocrit 29.2 % (37.5-50.1)
[2020-03-07 01:37] LABS: Basophils % 0.3 %; Eosinophils # 0.2 K/mcL (0.0-0.6); Eosinophils % 1.6 %; Hematocrit 25.7 % (37.5-50.1); Hemoglobin 8.2 g/dL (12.9-16.9); Immature Granulocytes % 0.7 % (0-4); Lymphocytes # 1.6 K/mcL (0.6-4.6); Lymphocytes % 13.9 %; Mean Corpuscular HGB Conc 31.9 g/dL (31.6-35.5); Mean Corpuscular Hemoglobin 30.3 pg (28.0-33.3); Mean Corpuscular Volume 94.8 fL (83.0-100.0); Mean Platelet Volume 9.7 fL (9.4-12.4); Monocytes # 1.7 K/mcL (0.0-1.3); Monocytes % 14.3 %; Platelet Count 333 K/mcL (140-400); Red Blood Count 2.71 M/mcL (4.19-5.50); Red Cell Distribution Width 17.2 % (11.5-14.5); Segmented Neutrophils % 69.2 %; White Blood Count 11.5 K/mcL (4.3-11.1)
[2020-03-07 01:54] LABS: BUN/Creatinine Ratio 29 (6-26); Blood Urea Nitrogen 10 mg/dL (8-23); Calcium 7.7 mg/dL (8.6-10.3); Carbon Dioxide 26 mEq/L (23-29); Chloride 100 mEq/L (98-107); Glucose 109 mg/dL (70-105); Magnesium 1.8 mg/dL (1.6-2.6); Osmolality,Calculated 274 (280-300); Potassium 3.4 mEq/L (3.5-5.1); Sodium 132 mEq/L (136-145); eGFR For African Americans > 60 (> 60); eGFR For Non-African Americans > 60 (> 60)
[2020-03-07] MEDS: Metoprolol XL (24 HR) Succ 25 MG TAB.ER.24H PO SCH (07:44)
[2020-03-07] MEDS: cloNIDine HCL 0.1 MG TABLET PO SCH (07:56)
[2020-03-07] MEDS: Cyanocobalamin (B-12) 1,000 MCG TABLET PO SCH (07:56)
[2020-03-07] MEDS: allopurinoL 300 MG TABLET PO SCH (07:56)
[2020-03-07] MEDS: Gabapentin 300 MG CAPSULE PO SCH (07:57)
[2020-03-07] MEDS: Budesonide/Formoterol 80/4.5 1 PUFF INH IH SCH (08:02)
[2020-03-07] MEDS ORDERED: Aspirin Enteric Coated 81 MG Tablet PO SCH (09:00)
[2020-03-07 10:26] VITALS: BP 92/54
== END 2020-03-07 13:03 | disposition home health service (06) | DRG 377 ==
LOC: EMEROOARM 13:11 → SUATTDRO 19:49 → ICNU 19:49 → 3ANU 03-02 21:17
PROVIDERS: ADMIT Student in an Organized Health Care Education/Training Program; ATTEND Internal Medicine

== ENCOUNTER 2020-04-08 12:12 | Inpatient (IN) ==
[2020-04-08] MEDS ORDERED: Isovue-370 500 ML BOTTLE IVP ONE (12:49)
[2020-04-08 12:57] LABS: Basophils # 0.1 K/mcL (0.0-0.2); Eosinophils # 0.5 K/mcL (0.0-0.6); Eosinophils % 9.4 %; Hematocrit 33.6 % (37.5-50.1); Hemoglobin 10.1 g/dL (12.9-16.9); Immature Granulocytes % 0.4 % (0-4); Lymphocytes # 1.2 K/mcL (0.6-4.6); Lymphocytes % 24.1 %; Mean Corpuscular HGB Conc 30.1 g/dL (31.6-35.5); Mean Corpuscular Hemoglobin 27.4 pg (28.0-33.3); Mean Corpuscular Volume 91.1 fL (83.0-100.0); Mean Platelet Volume 9.1 fL (9.4-12.4); Monocytes # 0.9 K/mcL (0.0-1.3); Monocytes % 18.3 %; Neutrophils # 2.3 K/mcL (1.6-8.9); Platelet Count 469 K/mcL (140-400); Red Blood Count 3.69 M/mcL (4.19-5.50); Red Cell Distribution Width 17.3 % (11.5-14.5); Segmented Neutrophils % 46.8 %
[2020-04-08 13:01] LABS: INR 1.2; Prothrombin Time 13.4 Seconds (9.4-12.1)
[2020-04-08 13:04] LABS: Activated Partial Thrombo Time 33.7 Seconds (26.0-36.0)
[2020-04-08 14:00] LABS: BUN/Creatinine Ratio 22 (6-26); Blood Urea Nitrogen 9 mg/dL (8-23); Calcium 8.2 mg/dL (8.6-10.3); Carbon Dioxide 26 mEq/L (23-29); Chloride 100 mEq/L (98-107); Glucose 92 mg/dL (70-105); Osmolality,Calculated 278 (280-300); Potassium 3.2 mEq/L (3.5-5.1); Sodium 135 mEq/L (136-145); eGFR For African Americans > 60 (> 60); eGFR For Non-African Americans > 60 (> 60)
[2020-04-08 14:10] LABS: Platelet Estimate Normal (Normal)
[2020-04-08 14:11] LABS: Anisocytosis 1+ (Not Present)
[2020-04-08 14:38] LABS: Adenovirus Not Detected (Not Detect); Bordetella Pertussis Not Detected (Not Detect); Chlamydophila pneumoniae Not Detected (Not Detect); Coronavirus 229E Not Detected (Not Detect); Coronavirus HKU1 Not Detected (Not Detect); Coronavirus NL63 Not Detected (Not Detect); Coronavirus OC43 Not Detected (Not Detect); Human Metapneumovirus Not Detected (Not Detect); Human Rhinovirus/Enterovirus Not Detected (Not Detect); Influenza A Subtype 2009 H1 Not Detected (Not Detect); Influenza B Not Detected (Not Detect); Mycoplasma pneumoniae Not Detected (Not Detect); Parainfluenza Virus 1 Not Detected (Not Detect); Parainfluenza Virus 2 Not Detected (Not Detect); Parainfluenza Virus 3 Not Detected (Not Detect); Parainfluenza Virus 4 Not Detected (Not Detect); Respiratory Syncytial Virus Not Detected (Not Detect); SARS-CoV-2 Not Detected (Not Detect)
[2020-04-08] MEDS ORDERED: Naloxone 0.4 MG/ML INJ IVP PRN (17:13)
[2020-04-08] MEDS ORDERED: Ondansetron 4 MG/2 ML VIAL IVP PRN (17:13)
[2020-04-08] MEDS ORDERED: MOM Conc 10 ML UD.LIQ PO PRN (17:13)
[2020-04-08] MEDS ORDERED: Mag Hydrox/Al Hydrox/Simeth 30 ML UDC PO PRN (17:13)
[2020-04-08] MEDS ORDERED: *HR* Promethazine 25 MG/ML VIAL IVP PRN (17:13)
[2020-04-08] MEDS ORDERED: Ringers Solution, Lactated 1,000 ML IVC SCH (17:30)
[2020-04-08] MEDS: Aspirin Enteric Coated 81 MG Tablet PO SCH (18:24)
[2020-04-08] MEDS: *HR* Heparin 5,000 UNIT/ML VIAL SQ SCH (18:25)
[2020-04-08] MEDS: Ringers Solution, Lactated 1,000 ML IVC SCH (18:26)
[2020-04-08] MEDS: Nicotine 14 MG PATCH.TD24 TD SCH (20:30)
[2020-04-09 01:21] LABS: Basophils # 0.1 K/mcL (0.0-0.2); Basophils % 1.1 %; Eosinophils # 0.3 K/mcL (0.0-0.6); Eosinophils % 7.3 %; Hematocrit 30.5 % (37.5-50.1); Hemoglobin 9.4 g/dL (12.9-16.9); Immature Granulocytes % 0.6 % (0-4); Lymphocytes % 37.2 %; Mean Corpuscular HGB Conc 30.8 g/dL (31.6-35.5); Mean Corpuscular Hemoglobin 27.6 pg (28.0-33.3); Mean Corpuscular Volume 89.4 fL (83.0-100.0); Monocytes % 21.3 %; Neutrophils # 1.5 K/mcL (1.6-8.9); Platelet Count 430 K/mcL (140-400); Red Blood Count 3.41 M/mcL (4.19-5.50); Red Cell Distribution Width 17.2 % (11.5-14.5); Segmented Neutrophils % 32.5 %; White Blood Count 4.7 K/mcL (4.3-11.1)
[2020-04-09 01:25] LABS: Lymphocytes # 1.8 K/mcL (0.6-4.6)
[2020-04-09 01:39] LABS: BUN/Creatinine Ratio 25 (6-26); Blood Urea Nitrogen 11 mg/dL (8-23); Carbon Dioxide 29 mEq/L (23-29); Chloride 103 mEq/L (98-107); Chol/HDL Ratio 3.2 (0-4.9); Cholesterol 81 mg/dL (< 200); Glucose 94 mg/dL (70-105); HDL Cholesterol 25 mg/dL (40-59); LDL Cholesterol,Calculated 40 mg/dL (< 100); Magnesium 1.8 mg/dL (1.6-2.6); Osmolality,Calculated 285 (280-300); Phosphorous 3.4 mg/dL (2.7-4.5); Potassium 3.9 mEq/L (3.5-5.1); Sodium 138 mEq/L (136-145); Triglycerides 80 mg/dL (< 150); eGFR For African Americans > 60 (> 60); eGFR For Non-African Americans > 60 (> 60)
[2020-04-09] MEDS: *HR* HYDROcodone/Acet 5/325 mg TABLET PO PRN ×2 (02:10→11:38)
[2020-04-09 02:25] LABS: Anisocytosis 1+ (Not Present); Platelet Estimate Normal (Normal)
[2020-04-09] MEDS ORDERED: Budesonide/Formoterol 80/4.5 1 PUFF INH IH SCH (03:00)
[2020-04-09] MEDS: Albuterol 2.5 MG/3 ML NEBULIZER IH PRN ×2 (03:30→19:46)
[2020-04-09] MEDS: Ringers Solution, Lactated 1,000 ML IVC SCH ×3 (04:38→22:40)
[2020-04-09] MEDS: *HR* Heparin 5,000 UNIT/ML VIAL SQ SCH ×2 (05:10→18:05)
[2020-04-09] MEDS: Nicotine 14 MG PATCH.TD24 TD SCH (09:28)
[2020-04-09] MEDS: Aspirin Enteric Coated 81 MG Tablet PO SCH (09:28)
[2020-04-09] MEDS: Furosemide 40 MG TABLET PO SCH (15:57)
[2020-04-09] MEDS: Gabapentin 300 MG CAPSULE PO SCH (20:32)
[2020-04-09] MEDS: Acetaminophen 325 MG TABLET PO PRN (20:32)
[2020-04-10] MEDS: *HR* Heparin 5,000 UNIT/ML VIAL SQ SCH ×2 (05:01→16:42)
[2020-04-10 06:10] LABS: Hematocrit 31.1 % (37.5-50.1); Hemoglobin 9.7 g/dL (12.9-16.9); Mean Corpuscular HGB Conc 31.2 g/dL (31.6-35.5); Mean Corpuscular Hemoglobin 28.2 pg (28.0-33.3); Mean Corpuscular Volume 90.4 fL (83.0-100.0); Platelet Count 434 K/mcL (140-400); Red Blood Count 3.44 M/mcL (4.19-5.50); Red Cell Distribution Width 17.5 % (11.5-14.5); White Blood Count 4.4 K/mcL (4.3-11.1)
[2020-04-10 06:26] LABS: BUN/Creatinine Ratio 28 (6-26); Blood Urea Nitrogen 11 mg/dL (8-23); Calcium 8.3 mg/dL (8.6-10.3); Carbon Dioxide 28 mEq/L (23-29); Chloride 99 mEq/L (98-107); Glucose 92 mg/dL (70-105); Osmolality,Calculated 275 (280-300); Potassium 3.7 mEq/L (3.5-5.1); Sodium 133 mEq/L (136-145); eGFR For African Americans > 60 (> 60); eGFR For Non-African Americans > 60 (> 60)
[2020-04-10] MEDS: Gabapentin 300 MG CAPSULE PO SCH ×2 (09:01→20:07)
[2020-04-10] MEDS: Furosemide 40 MG TABLET PO SCH ×2 (09:01→16:42)
[2020-04-10] MEDS: Cyanocobalamin (B-12) 1,000 MCG TABLET PO SCH (09:01)
[2020-04-10] MEDS: Nicotine 14 MG PATCH.TD24 TD SCH (09:01)
[2020-04-10] MEDS: allopurinoL 300 MG TABLET PO SCH (09:01)
[2020-04-10] MEDS: Aspirin Enteric Coated 81 MG Tablet PO SCH (09:02)
[2020-04-10 12:25] LABS: INR 1.2
[2020-04-10 12:38] LABS: Albumin 2.8 g/dL (3.5-5.7); Albumin/Globulin Ratio 0.7 (1.1-2.2); Bilirubin,Total 0.2 mg/dL (0.3-1.0); Globulin 4.3 g/dL (2.4-3.5); Total Protein 7.1 g/dL (6.4-8.9)
[2020-04-10] MEDS: *HR* HYDROcodone/Acet 5/325 mg TABLET PO PRN (22:04)
[2020-04-10 23:28] LABS: Total Protein,Pleural Fluid 4.4 g/dL
[2020-04-11 02:02] LABS: Basophils % 0.8 %; Eosinophils # 0.4 K/mcL (0.0-0.6); Hematocrit 30.1 % (37.5-50.1); Hemoglobin 9.2 g/dL (12.9-16.9); Immature Granulocytes % 0.8 % (0-4); Mean Corpuscular HGB Conc 30.6 g/dL (31.6-35.5); Mean Corpuscular Hemoglobin 27.3 pg (28.0-33.3); Mean Corpuscular Volume 89.3 fL (83.0-100.0); Mean Platelet Volume 9.2 fL (9.4-12.4); Monocytes # 1.1 K/mcL (0.0-1.3); Monocytes % 21.5 %; Neutrophils # 1.8 K/mcL (1.6-8.9); Platelet Count 442 K/mcL (140-400); Red Blood Count 3.37 M/mcL (4.19-5.50); Red Cell Distribution Width 17.2 % (11.5-14.5); Segmented Neutrophils % 33.9 %; White Blood Count 5.3 K/mcL (4.3-11.1)
[2020-04-11 02:06] LABS: Lymphocytes # 1.9 K/mcL (0.6-4.6)
[2020-04-11 02:12] LABS: RBC,Pleural Fluid < 2000 RBC/mcL
[2020-04-11 02:14] LABS: Appearance of Pleural Fl Clear (Clear)
[2020-04-11 02:17] LABS: BUN/Creatinine Ratio 28 (6-26); Blood Urea Nitrogen 12 mg/dL (8-23); Calcium 7.8 mg/dL (8.6-10.3); Carbon Dioxide 28 mEq/L (23-29); Chloride 97 mEq/L (98-107); Glucose 91 mg/dL (70-105); Osmolality,Calculated 271 (280-300); Potassium 3.5 mEq/L (3.5-5.1); Sodium 131 mEq/L (136-145); eGFR For African Americans > 60 (> 60); eGFR For Non-African Americans > 60 (> 60)
[2020-04-11 03:05] LABS: Platelet Estimate Normal (Normal)
[2020-04-11] MEDS: *HR* Heparin 5,000 UNIT/ML VIAL SQ SCH (05:44)
[2020-04-11] MEDS: Acetaminophen 325 MG TABLET PO PRN ×2 (07:53→22:50)
[2020-04-11] MEDS: allopurinoL 300 MG TABLET PO SCH (07:54)
[2020-04-11] MEDS: Gabapentin 300 MG CAPSULE PO SCH ×2 (07:54→22:46)
[2020-04-11] MEDS: Furosemide 40 MG TABLET PO SCH (07:54)
[2020-04-11] MEDS: Aspirin Enteric Coated 81 MG Tablet PO SCH (07:54)
[2020-04-11] MEDS: Nicotine 14 MG PATCH.TD24 TD SCH (07:54)
[2020-04-11] MEDS: Cyanocobalamin (B-12) 1,000 MCG TABLET PO SCH (07:55)
[2020-04-11] MEDS ORDERED: 0.9 % Sodium Chloride 250 ML IVC ONE (13:59)
[2020-04-11] MEDS: Albuterol 2.5 MG/3 ML NEBULIZER IH PRN (22:34)
[2020-04-12 05:26] LABS: Basophils % 0.7 %; Eosinophils # 0.3 K/mcL (0.0-0.6); Hematocrit 28.8 % (37.5-50.1); Hemoglobin 8.7 g/dL (12.9-16.9); Immature Granulocytes % 1.1 % (0-4); Lymphocytes # 1.5 K/mcL (0.6-4.6); Lymphocytes % 32.9 %; Mean Corpuscular HGB Conc 30.2 g/dL (31.6-35.5); Mean Corpuscular Hemoglobin 26.8 pg (28.0-33.3); Mean Corpuscular Volume 88.6 fL (83.0-100.0); Mean Platelet Volume 9.3 fL (9.4-12.4); Monocytes # 1.1 K/mcL (0.0-1.3); Monocytes % 24.6 %; Platelet Count 479 K/mcL (140-400); Red Blood Count 3.25 M/mcL (4.19-5.50); Red Cell Distribution Width 17.1 % (11.5-14.5); Segmented Neutrophils % 33.7 %; White Blood Count 4.6 K/mcL (4.3-11.1)
[2020-04-12 05:29] LABS: Neutrophils # 1.6 K/mcL (1.6-8.9)
[2020-04-12 05:37] LABS: BUN/Creatinine Ratio 33 (6-26); Blood Urea Nitrogen 12 mg/dL (8-23); Calcium 7.9 mg/dL (8.6-10.3); Carbon Dioxide 27 mEq/L (23-29); Chloride 99 mEq/L (98-107); Glucose 94 mg/dL (70-105); Osmolality,Calculated 274 (280-300); Potassium 3.4 mEq/L (3.5-5.1); Sodium 132 mEq/L (136-145); eGFR For African Americans > 60 (> 60); eGFR For Non-African Americans > 60 (> 60)
[2020-04-12 05:48] LABS: Anisocytosis 1+ (Not Present)
[2020-04-12] MEDS ORDERED: 0.9 % Sodium Chloride 250 ML IVC SCH (08:30)
[2020-04-12] MEDS: Nicotine 14 MG PATCH.TD24 TD SCH (09:22)
[2020-04-12] MEDS: Gabapentin 300 MG CAPSULE PO SCH ×2 (09:24→21:17)
[2020-04-12] MEDS: Aspirin Enteric Coated 81 MG Tablet PO SCH (09:24)
[2020-04-12] MEDS: Cyanocobalamin (B-12) 1,000 MCG TABLET PO SCH (09:24)
[2020-04-12] MEDS: allopurinoL 300 MG TABLET PO SCH (09:24)
[2020-04-12] MEDS: Albuterol 2.5 MG/3 ML NEBULIZER IH PRN ×2 (09:53→23:23)
[2020-04-12 15:10] LABS: Basophils % 0.9 %; Eosinophils # 0.2 K/mcL (0.0-0.6); Hematocrit 30.3 % (37.5-50.1); Hemoglobin 9.5 g/dL (12.9-16.9); Immature Granulocytes % 0.9 % (0-4); Lymphocytes % 27.8 %; Mean Corpuscular HGB Conc 31.4 g/dL (31.6-35.5); Mean Corpuscular Hemoglobin 28.1 pg (28.0-33.3); Mean Corpuscular Volume 89.6 fL (83.0-100.0); Monocytes # 0.7 K/mcL (0.0-1.3); Monocytes % 21.6 %; Neutrophils # 1.4 K/mcL (1.6-8.9); Platelet Count 456 K/mcL (140-400); Red Blood Count 3.38 M/mcL (4.19-5.50); Red Cell Distribution Width 17.1 % (11.5-14.5); Segmented Neutrophils % 41.8 %; White Blood Count 3.4 K/mcL (4.3-11.1)
[2020-04-12 15:31] LABS: BUN/Creatinine Ratio 34 (6-26); Blood Urea Nitrogen 11 mg/dL (8-23); Calcium 7.9 mg/dL (8.6-10.3); Carbon Dioxide 26 mEq/L (23-29); Chloride 100 mEq/L (98-107); Glucose 124 mg/dL (70-105); Osmolality,Calculated 273 (280-300); Potassium 3.9 mEq/L (3.5-5.1); Sodium 131 mEq/L (136-145); eGFR For African Americans > 60 (> 60); eGFR For Non-African Americans > 60 (> 60)
[2020-04-12 15:40] LABS: Platelet Estimate Increased (Normal)
[2020-04-12 15:41] LABS: Anisocytosis 1+ (Not Present)
[2020-04-12] MEDS: Acetaminophen 325 MG TABLET PO PRN (21:21)
[2020-04-13 01:05] LABS: Hematocrit 29.1 % (37.5-50.1); Hemoglobin 8.8 g/dL (12.9-16.9); Mean Corpuscular HGB Conc 30.2 g/dL (31.6-35.5); Mean Corpuscular Hemoglobin 26.7 pg (28.0-33.3); Mean Corpuscular Volume 88.4 fL (83.0-100.0); Mean Platelet Volume 9.3 fL (9.4-12.4); Monocytes # 1.1 K/mcL (0.0-1.3); Platelet Count 510 K/mcL (140-400); Red Blood Count 3.29 M/mcL (4.19-5.50); Red Cell Distribution Width 16.9 % (11.5-14.5); White Blood Count 4.2 K/mcL (4.3-11.1)
[2020-04-13 01:13] LABS: BUN/Creatinine Ratio 34 (6-26); Blood Urea Nitrogen 13 mg/dL (8-23); Carbon Dioxide 25 mEq/L (23-29); Chloride 99 mEq/L (98-107); Glucose 99 mg/dL (70-105); Osmolality,Calculated 270 (280-300); Potassium 3.8 mEq/L (3.5-5.1); Sodium 130 mEq/L (136-145); eGFR For African Americans > 60 (> 60); eGFR For Non-African Americans > 60 (> 60)
[2020-04-13 01:34] LABS: Anisocytosis 1+ (Not Present); Eosinophils # 0.1 K/mcL (0.0-0.6); Hypochromasia Present (Not Present); Lymphocytes # 1.6 K/mcL (0.6-4.6); Macrocytosis Present (Not Present); Neutrophils # 1.4 K/mcL (1.6-8.9); Platelet Estimate Increased (Normal)
[2020-04-13] MEDS ORDERED: Tolvaptan 15 MG TABLET PO ONE (10:52)
[2020-04-13] MEDS: Cyanocobalamin (B-12) 1,000 MCG TABLET PO SCH (12:15)
[2020-04-13] MEDS: Aspirin Enteric Coated 81 MG Tablet PO SCH (12:15)
[2020-04-13] MEDS: allopurinoL 300 MG TABLET PO SCH (12:16)
[2020-04-13] MEDS: Gabapentin 300 MG CAPSULE PO SCH ×2 (12:16→20:31)
[2020-04-13] MEDS: Nicotine 14 MG PATCH.TD24 TD SCH (12:17)
[2020-04-13] MEDS: Acetaminophen 325 MG TABLET PO PRN (19:26)
[2020-04-13] MEDS: Albuterol 2.5 MG/3 ML NEBULIZER IH PRN (21:40)
[2020-04-14 02:58] LABS: Basophils % 0.9 %; Eosinophils # 0.3 K/mcL (0.0-0.6); Eosinophils % 8.1 %; Hematocrit 29.9 % (37.5-50.1); Hemoglobin 9.3 g/dL (12.9-16.9); Immature Granulocytes % 0.7 % (0-4); Lymphocytes # 1.4 K/mcL (0.6-4.6); Lymphocytes % 33.9 %; Mean Corpuscular HGB Conc 31.1 g/dL (31.6-35.5); Mean Corpuscular Hemoglobin 27.8 pg (28.0-33.3); Mean Corpuscular Volume 89.5 fL (83.0-100.0); Monocytes # 1.1 K/mcL (0.0-1.3); Monocytes % 25.1 %; Neutrophils # 1.3 K/mcL (1.6-8.9); Platelet Count 541 K/mcL (140-400); Red Blood Count 3.34 M/mcL (4.19-5.50); Red Cell Distribution Width 17.1 % (11.5-14.5); Segmented Neutrophils % 31.3 %; White Blood Count 4.2 K/mcL (4.3-11.1)
[2020-04-14 03:16] LABS: BUN/Creatinine Ratio 26 (6-26); Blood Urea Nitrogen 9 mg/dL (8-23); Calcium 8.4 mg/dL (8.6-10.3); Carbon Dioxide 26 mEq/L (23-29); Chloride 105 mEq/L (98-107); Glucose 94 mg/dL (70-105); Osmolality,Calculated 284 (280-300); Potassium 3.6 mEq/L (3.5-5.1); Sodium 138 mEq/L (136-145); eGFR For African Americans > 60 (> 60); eGFR For Non-African Americans > 60 (> 60)
[2020-04-14 03:18] LABS: Anisocytosis 1+ (Not Present)
[2020-04-14 03:19] LABS: Hypochromasia Present (Not Present); Platelet Estimate Increased (Normal); Reactive Lymphocytes Present (Not Present)
[2020-04-14] MEDS: Acetaminophen 325 MG TABLET PO PRN (05:39)
[2020-04-14 07:33] VITALS: BP 117/68
[2020-04-14] MEDS: Gabapentin 300 MG CAPSULE PO SCH (08:37)
[2020-04-14] MEDS: allopurinoL 300 MG TABLET PO SCH (08:37)
[2020-04-14] MEDS: Cyanocobalamin (B-12) 1,000 MCG TABLET PO SCH (08:37)
[2020-04-14] MEDS: Nicotine 14 MG PATCH.TD24 TD SCH (08:37)
[2020-04-14] MEDS: Aspirin Enteric Coated 81 MG Tablet PO SCH (08:37)
== END 2020-04-14 13:30 | disposition home or self-care (01) | DRG 187 ==
LOC: 3BNU 12:12 → EMEROOARM 12:12 → 3BNU 17:05
PROVIDERS: ADMIT Internal Medicine; ATTEND Internal Medicine

== ENCOUNTER 2020-04-23 15:47 | Inpatient (IN) ==
[2020-04-23] MEDS ORDERED: 0.9 % Sodium Chloride 1,000 ML ONE (16:03)
[2020-04-23] MEDS ORDERED: 0.9 % Sodium Chloride 1,000 ML IVC ONE (16:12)
[2020-04-23] MEDS ORDERED: Aspirin 325 MG TABLET PO ONE (16:12)
[2020-04-23] MEDS ORDERED: DilTIAZem 50 MG/50 ML IV.SOLN IVC SCH (16:21)
[2020-04-23 16:31] LABS: Basophils # 0.1 K/mcL (0.0-0.2); Eosinophils # 0.3 K/mcL (0.0-0.6); Eosinophils % 5.1 %; Hematocrit 36.2 % (37.5-50.1); Hemoglobin 11.1 g/dL (12.9-16.9); Lymphocytes # 1.4 K/mcL (0.6-4.6); Lymphocytes % 20.7 %; Mean Corpuscular HGB Conc 30.7 g/dL (31.6-35.5); Mean Corpuscular Hemoglobin 26.5 pg (28.0-33.3); Mean Corpuscular Volume 86.4 fL (83.0-100.0); Mean Platelet Volume 8.8 fL (9.4-12.4); Monocytes # 0.8 K/mcL (0.0-1.3); Monocytes % 12.4 %; Platelet Count 833 K/mcL (140-400); Red Blood Count 4.19 M/mcL (4.19-5.50); Segmented Neutrophils % 59.8 %; White Blood Count 6.7 K/mcL (4.3-11.1)
[2020-04-23 16:52] LABS: BUN/Creatinine Ratio 24 (6-26); Blood Urea Nitrogen 9 mg/dL (8-23); Carbon Dioxide 27 mEq/L (23-29); Chloride 95 mEq/L (98-107); Glucose 98 mg/dL (70-105); Magnesium 1.7 mg/dL (1.6-2.6); Osmolality,Calculated 275 (280-300); Phosphorous 3.7 mg/dL (2.7-4.5); Potassium 3.1 mEq/L (3.5-5.1); Sodium 133 mEq/L (136-145); eGFR For African Americans > 60 (> 60); eGFR For Non-African Americans > 60 (> 60)
[2020-04-23 16:59] LABS: Troponin I 0.08 ng/mL (< 0.04)
[2020-04-23] MEDS ORDERED: 0.9 % Sodium Chloride 1,000 ML IVC SCH (17:15)
[2020-04-23] MEDS ORDERED: Naloxone 0.4 MG/ML INJ IVP PRN (17:53)
[2020-04-24 03:41] LABS: Basophils # 0.1 K/mcL (0.0-0.2); Basophils % 1.1 %; Eosinophils # 0.2 K/mcL (0.0-0.6); Eosinophils % 3.2 %; Hematocrit 28.7 % (37.5-50.1); Immature Granulocytes % 1.1 % (0-4); Lymphocytes # 1.8 K/mcL (0.6-4.6); Mean Corpuscular HGB Conc 31.4 g/dL (31.6-35.5); Mean Corpuscular Hemoglobin 27.4 pg (28.0-33.3); Mean Corpuscular Volume 87.5 fL (83.0-100.0); Mean Platelet Volume 8.7 fL (9.4-12.4); Monocytes # 0.8 K/mcL (0.0-1.3); Monocytes % 16.6 %; Neutrophils # 1.9 K/mcL (1.6-8.9); Platelet Count 661 K/mcL (140-400); Red Blood Count 3.28 M/mcL (4.19-5.50); Red Cell Distribution Width 16.8 % (11.5-14.5); White Blood Count 4.7 K/mcL (4.3-11.1)
[2020-04-24 04:01] LABS: BUN/Creatinine Ratio 25 (6-26); Blood Urea Nitrogen 9 mg/dL (8-23); Calcium 8.4 mg/dL (8.6-10.3); Carbon Dioxide 27 mEq/L (23-29); Chloride 99 mEq/L (98-107); Glucose 88 mg/dL (70-105); Magnesium 1.7 mg/dL (1.6-2.6); Osmolality,Calculated 276 (280-300); Phosphorous 3.5 mg/dL (2.7-4.5); Potassium 3.4 mEq/L (3.5-5.1); Sodium 134 mEq/L (136-145); eGFR For African Americans > 60 (> 60); eGFR For Non-African Americans > 60 (> 60)
[2020-04-24] MEDS ORDERED: Acetaminophen 325 MG TABLET PO ONE (09:18)
[2020-04-24] MEDS ORDERED: Ipratropium/Albuterol Neb 3 ML IH PRN (12:22)
[2020-04-24] MEDS: Furosemide 20 MG TABLET PO SCH (13:21)
[2020-04-24] MEDS: Aspirin 81 MG TAB.CHEW PO SCH (13:21)
[2020-04-24] MEDS: Doxycycline 100 MG CAPSULE PO SCH ×2 (14:30→19:22)
[2020-04-24] MEDS ORDERED: Chloraseptic Spray 177 ML BOTTLE MM PRN (14:39)
[2020-04-24] MEDS: Gabapentin 300 MG CAPSULE PO SCH (19:22)
[2020-04-24] MEDS: Budesonide/Formoterol 160/4.5 1 PUFF INH IH SCH (21:54)
[2020-04-25 05:48] LABS: Basophils % 0.8 %; Eosinophils # 0.2 K/mcL (0.0-0.6); Eosinophils % 4.6 %; Hematocrit 30.2 % (37.5-50.1); Hemoglobin 9.3 g/dL (12.9-16.9); Immature Granulocytes % 0.8 % (0-4); Lymphocytes # 1.7 K/mcL (0.6-4.6); Lymphocytes % 34.1 %; Mean Corpuscular HGB Conc 30.8 g/dL (31.6-35.5); Mean Corpuscular Volume 84.4 fL (83.0-100.0); Mean Platelet Volume 8.7 fL (9.4-12.4); Monocytes # 0.8 K/mcL (0.0-1.3); Monocytes % 16.3 %; Neutrophils # 2.2 K/mcL (1.6-8.9); Platelet Count 689 K/mcL (140-400); Red Blood Count 3.58 M/mcL (4.19-5.50); Segmented Neutrophils % 43.4 %
[2020-04-25 06:05] LABS: BUN/Creatinine Ratio 36 (6-26); Blood Urea Nitrogen 13 mg/dL (8-23); Calcium 8.3 mg/dL (8.6-10.3); Carbon Dioxide 27 mEq/L (23-29); Chloride 100 mEq/L (98-107); Glucose 98 mg/dL (70-105); Magnesium 1.6 mg/dL (1.6-2.6); Osmolality,Calculated 278 (280-300); Phosphorous 3.2 mg/dL (2.7-4.5); Potassium 3.7 mEq/L (3.5-5.1); Sodium 134 mEq/L (136-145); eGFR For African Americans > 60 (> 60); eGFR For Non-African Americans > 60 (> 60)
[2020-04-25] MEDS: Doxycycline 100 MG CAPSULE PO SCH (07:41)
[2020-04-25] MEDS: Aspirin 81 MG TAB.CHEW PO SCH (07:42)
[2020-04-25] MEDS: Furosemide 20 MG TABLET PO SCH (07:42)
[2020-04-25] MEDS: Gabapentin 300 MG CAPSULE PO SCH (07:42)
[2020-04-25] MEDS: Budesonide/Formoterol 160/4.5 1 PUFF INH IH SCH (08:07)
[2020-04-25] MEDS ORDERED: Cyanocobalamin (B-12) 1,000 MCG TABLET PO SCH (09:00)
[2020-04-25] MEDS ORDERED: Thiamine (B-1) 100 MG TABLET PO SCH (09:00)
[2020-04-25] MEDS ORDERED: allopurinoL 300 MG TABLET PO SCH (09:00)
[2020-04-25] MEDS ORDERED: Folic Acid 1 MG TABLET PO SCH (09:00)
[2020-04-25] MEDS ORDERED: Acetaminophen 325 MG TABLET PO ONE (14:19)
[2020-04-25 15:14] VITALS: BP 108/71
[2020-04-25] MEDS ORDERED: Furosemide 40 MG TABLET PO SCH (17:00)
== END 2020-04-25 16:09 | disposition home or self-care (01) | DRG 280 ==
LOC: EMEROOARM 15:47 → 3BNU 15:47 → SUATTDRO 18:22 → 3BNU 19:58
PROVIDERS: ADMIT Internal Medicine; ATTEND Internal Medicine

== ENCOUNTER 2020-05-08 09:32 | Inpatient (IN) ==
[2020-05-08] MEDS ORDERED: Ipratropium/Albuterol Neb 3 ML IH ONE (09:42)
[2020-05-08 10:16] LABS: VBG HCO3 31 mEq/L (21-27); VBG PCO2 52 mmHg (41-51); VBG PH 7.38 pH Units (7.32-7.42); VBG PO2 42 mmHg (25-50)
[2020-05-08 10:17] LABS: Basophils % 0.6 %; Eosinophils # 0.1 K/mcL (0.0-0.6); Eosinophils % 0.9 %; Hematocrit 31.6 % (37.5-50.1); Hemoglobin 10.2 g/dL (12.9-16.9); Immature Granulocytes % 1.1 % (0-4); Lymphocytes % 15.1 %; Mean Corpuscular HGB Conc 32.3 g/dL (31.6-35.5); Mean Corpuscular Hemoglobin 26.5 pg (28.0-33.3); Mean Corpuscular Volume 82.1 fL (83.0-100.0); Mean Platelet Volume 8.9 fL (9.4-12.4); Monocytes % 15.3 %; Neutrophils # 4.4 K/mcL (1.6-8.9); Platelet Count 474 K/mcL (140-400); Red Blood Count 3.85 M/mcL (4.19-5.50); Red Cell Distribution Width 18.6 % (11.5-14.5); White Blood Count 6.5 K/mcL (4.3-11.1)
[2020-05-08 10:42] LABS: Alanine Aminotransferase 23 Units/L (7-52); Albumin 2.9 g/dL (3.5-5.7); Albumin/Globulin Ratio 0.7 (1.1-2.2); Alkaline Phosphatase 66 Units/L (34-104); Aspartate Amino Transferase 48 Units/L (13-39); BUN/Creatinine Ratio 16 (6-26); Bilirubin,Total 0.3 mg/dL (0.3-1.0); Blood Urea Nitrogen 5 mg/dL (8-23); Calcium 8.1 mg/dL (8.6-10.3); Carbon Dioxide 31 mEq/L (23-29); Chloride 77 mEq/L (98-107); Glucose 81 mg/dL (70-105); Osmolality,Calculated 240 (280-300); Potassium 2.7 mEq/L (3.5-5.1); Sodium 117 mEq/L (136-145); Total Protein 6.9 g/dL (6.4-8.9); Troponin I 0.07 ng/mL (< 0.04); eGFR For African Americans > 60 (> 60); eGFR For Non-African Americans > 60 (> 60)
[2020-05-08] MEDS ORDERED: Potassium Chloride 40 MEQ, Lidocaine 1% 2 ML in 0.9 % Sodium Chloride 500 ML IVPB ONE (11:00)
[2020-05-08] MEDS ORDERED: Furosemide 40 MG/4 ML VIAL IVP ONE (11:02)
[2020-05-08 11:34] LABS: Magnesium 1.5 mg/dL (1.6-2.6); Phosphorous 3.1 mg/dL (2.7-4.5)
[2020-05-08 11:35] LABS: Bilirubin,Urine Negative (Negative); Blood,Urine Negative (Negative); Clarity,Urine Clear (Clear); Color,Urine Light-Yellow (Yellow); Glucose,Urine (UA) Normal (Normal); Ketones,Urine 10 mg/dL (Negative); Leukocyte Esterase,Urine Negative (Negative); Nitrite,Urine Negative (Negative); Protein,Urine Negative (Neg-Trace); Specific Gravity,Urine 1.015 (1.010-1.025); Urobilinogen,Urine Normal (Normal)
[2020-05-08] MEDS ORDERED: Naloxone 0.4 MG/ML INJ IVP PRN (11:44)
[2020-05-08] MEDS ORDERED: methylPREDNISolone 125 MG/2 ML VIAL IVP ONE (11:49)
[2020-05-08] MEDS ORDERED: Perflutren Lipid Microsphere 1.3 ML in 0.9 % Sodium Chloride 8.7 ML IVP PRN (13:14)
[2020-05-08 15:08] LABS: BUN/Creatinine Ratio 15 (6-26); Blood Urea Nitrogen 5 mg/dL (8-23); Calcium 8.2 mg/dL (8.6-10.3); Carbon Dioxide 31 mEq/L (23-29); Chloride 76 mEq/L (98-107); Glucose 93 mg/dL (70-105); Osmolality,Calculated 241 (280-300); Potassium 2.8 mEq/L (3.5-5.1); Sodium 117 mEq/L (136-145); Troponin I 0.07 ng/mL (< 0.04); eGFR For African Americans > 60 (> 60); eGFR For Non-African Americans > 60 (> 60)
[2020-05-08] MEDS: Ipratropium/Albuterol Neb 3 ML IH SCH ×3 (16:33→23:53)
[2020-05-08] MEDS: Pantoprazole 40 MG VIAL IVP SCH (16:34)
[2020-05-08 18:04] LABS: BUN/Creatinine Ratio 15 (6-26); Blood Urea Nitrogen 6 mg/dL (8-23); Calcium 7.9 mg/dL (8.6-10.3); Carbon Dioxide 32 mEq/L (23-29); Chloride 77 mEq/L (98-107); Glucose 125 mg/dL (70-105); Osmolality,Calculated 243 (280-300); Potassium 3.2 mEq/L (3.5-5.1); Sodium 117 mEq/L (136-145); eGFR For African Americans > 60 (> 60); eGFR For Non-African Americans > 60 (> 60)
[2020-05-08] MEDS ORDERED: Tolvaptan 15 MG TABLET PO ONE (18:11)
[2020-05-08] MEDS: Furosemide 40 MG/4 ML VIAL IVP SCH (20:01)
[2020-05-08] MEDS: Budesonide/Formoterol 160/4.5 1 PUFF INH IH SCH (20:34)
[2020-05-08 22:04] LABS: BUN/Creatinine Ratio 17 (6-26); Blood Urea Nitrogen 9 mg/dL (8-23); Calcium 8.2 mg/dL (8.6-10.3); Carbon Dioxide 31 mEq/L (23-29); Chloride 78 mEq/L (98-107); Glucose 133 mg/dL (70-105); Osmolality,Calculated 247 (280-300); Potassium 3.7 mEq/L (3.5-5.1); Sodium 118 mEq/L (136-145); eGFR For African Americans > 60 (> 60); eGFR For Non-African Americans > 60 (> 60)
[2020-05-09] MEDS: MethylPREDNISolone 40 MG/ML VIAL IVP SCH ×4 (00:21→22:48)
[2020-05-09 01:11] LABS: VBG Ionized Calcium 0.97 mmol/L (1.15-1.35)
[2020-05-09 01:13] LABS: Hematocrit 31.1 % (37.5-50.1); Mean Corpuscular HGB Conc 32.2 g/dL (31.6-35.5); Mean Corpuscular Hemoglobin 26.7 pg (28.0-33.3); Mean Corpuscular Volume 83.2 fL (83.0-100.0); Mean Platelet Volume 8.9 fL (9.4-12.4); Platelet Count 438 K/mcL (140-400); Red Blood Count 3.74 M/mcL (4.19-5.50); Red Cell Distribution Width 18.5 % (11.5-14.5); White Blood Count 4.8 K/mcL (4.3-11.1)
[2020-05-09 01:31] LABS: BUN/Creatinine Ratio 20 (6-26); Blood Urea Nitrogen 10 mg/dL (8-23); Calcium 8.2 mg/dL (8.6-10.3); Carbon Dioxide 31 mEq/L (23-29); Chloride 79 mEq/L (98-107); Glucose 138 mg/dL (70-105); Osmolality,Calculated 247 (280-300); Potassium 4.1 mEq/L (3.5-5.1); Sodium 118 mEq/L (136-145); eGFR For African Americans > 60 (> 60); eGFR For Non-African Americans > 60 (> 60)
[2020-05-09] MEDS: Ipratropium/Albuterol Neb 3 ML IH SCH ×6 (03:52→23:13)
[2020-05-09 05:07] LABS: BUN/Creatinine Ratio 20 (6-26); Blood Urea Nitrogen 10 mg/dL (8-23); Calcium 8.3 mg/dL (8.6-10.3); Carbon Dioxide 32 mEq/L (23-29); Chloride 80 mEq/L (98-107); Glucose 135 mg/dL (70-105); Osmolality,Calculated 251 (280-300); Potassium 4.2 mEq/L (3.5-5.1); Sodium 120 mEq/L (136-145); eGFR For African Americans > 60 (> 60); eGFR For Non-African Americans > 60 (> 60)
[2020-05-09] MEDS: Budesonide/Formoterol 160/4.5 1 PUFF INH IH SCH ×2 (07:43→20:14)
[2020-05-09] MEDS: Furosemide 40 MG/4 ML VIAL IVP SCH (09:54)
[2020-05-09] MEDS: Folic Acid 1 MG TABLET PO SCH (09:54)
[2020-05-09] MEDS: Aspirin Enteric Coated 81 MG Tablet PO SCH (09:54)
[2020-05-09] MEDS: Thiamine (B-1) 100 MG TABLET PO SCH (09:54)
[2020-05-09] MEDS: Calcium Gluconate 1gm/50mL 1 GM/50 ML BAG IVPB SCH ×2 (09:55→11:05)
[2020-05-09 09:56] LABS: BUN/Creatinine Ratio 26 (6-26); Blood Urea Nitrogen 11 mg/dL (8-23); Carbon Dioxide 32 mEq/L (23-29); Chloride 82 mEq/L (98-107); Glucose 128 mg/dL (70-105); Osmolality,Calculated 257 (280-300); Sodium 123 mEq/L (136-145); eGFR For African Americans > 60 (> 60); eGFR For Non-African Americans > 60 (> 60)
[2020-05-09] MEDS: Pantoprazole 40 MG VIAL IVP SCH (09:56)
[2020-05-09 13:43] LABS: Albumin 3.4 g/dL (3.5-5.7); Albumin/Globulin Ratio 0.7 (1.1-2.2); Bilirubin,Indirect 0.3 mg/dL (0.0-1.0); Bilirubin,Total 0.3 mg/dL (0.3-1.0); Globulin 4.6 g/dL (2.4-3.5)
[2020-05-09 13:44] LABS: BUN/Creatinine Ratio 22 (6-26); Blood Urea Nitrogen 11 mg/dL (8-23); Calcium 9.5 mg/dL (8.6-10.3); Carbon Dioxide 32 mEq/L (23-29); Chloride 84 mEq/L (98-107); Glucose 133 mg/dL (70-105); Osmolality,Calculated 263 (280-300); Sodium 126 mEq/L (136-145); eGFR For African Americans > 60 (> 60); eGFR For Non-African Americans > 60 (> 60)
[2020-05-09] MEDS ORDERED: Tolvaptan 15 MG TABLET PO ONE (13:49)
[2020-05-09] MEDS: Furosemide 40 MG TABLET PO SCH (17:44)
[2020-05-09 19:39] LABS: BUN/Creatinine Ratio 27 (6-26); Blood Urea Nitrogen 15 mg/dL (8-23); Calcium 9.3 mg/dL (8.6-10.3); Carbon Dioxide 33 mEq/L (23-29); Chloride 87 mEq/L (98-107); Glucose 133 mg/dL (70-105); Osmolality,Calculated 269 (280-300); Potassium 4.1 mEq/L (3.5-5.1); Sodium 128 mEq/L (136-145); eGFR For African Americans > 60 (> 60); eGFR For Non-African Americans > 60 (> 60)
[2020-05-09] MEDS ORDERED: Acetaminophen 325 MG TABLET PO ONE (20:15)
[2020-05-09] MEDS: Nicotine 21 MG PATCH.TD24 TD SCH (21:39)
[2020-05-10 01:39] LABS: Basophils % 0.1 %; Hematocrit 29.4 % (37.5-50.1); Hemoglobin 9.3 g/dL (12.9-16.9); Immature Granulocytes % 0.6 % (0-4); Lymphocytes # 0.6 K/mcL (0.6-4.6); Lymphocytes % 3.9 %; Mean Corpuscular HGB Conc 31.6 g/dL (31.6-35.5); Mean Corpuscular Hemoglobin 26.6 pg (28.0-33.3); Mean Corpuscular Volume 84.2 fL (83.0-100.0); Mean Platelet Volume 8.9 fL (9.4-12.4); Monocytes # 0.7 K/mcL (0.0-1.3); Monocytes % 5.3 %; Neutrophils # 12.6 K/mcL (1.6-8.9); Platelet Count 437 K/mcL (140-400); Red Blood Count 3.49 M/mcL (4.19-5.50); Red Cell Distribution Width 18.9 % (11.5-14.5); Segmented Neutrophils % 90.1 %
[2020-05-10 01:52] LABS: BUN/Creatinine Ratio 30 (6-26); Blood Urea Nitrogen 17 mg/dL (8-23); Carbon Dioxide 35 mEq/L (23-29); Chloride 87 mEq/L (98-107); Glucose 136 mg/dL (70-105); Osmolality,Calculated 270 (280-300); Potassium 4.1 mEq/L (3.5-5.1); Sodium 128 mEq/L (136-145); eGFR For African Americans > 60 (> 60); eGFR For Non-African Americans > 60 (> 60)
[2020-05-10] MEDS: Ipratropium/Albuterol Neb 3 ML IH SCH ×6 (04:27→23:30)
[2020-05-10] MEDS: Aspirin Enteric Coated 81 MG Tablet PO SCH (09:24)
[2020-05-10] MEDS: Cyanocobalamin (B-12) 1,000 MCG TABLET PO SCH (09:24)
[2020-05-10] MEDS: allopurinoL 300 MG TABLET PO SCH (09:24)
[2020-05-10] MEDS: Pantoprazole 40 MG VIAL IVP SCH (09:24)
[2020-05-10] MEDS: Folic Acid 1 MG TABLET PO SCH (09:24)
[2020-05-10] MEDS: Thiamine (B-1) 100 MG TABLET PO SCH (09:24)
[2020-05-10] MEDS: Furosemide 40 MG TABLET PO SCH ×2 (09:24→16:12)
[2020-05-10] MEDS: MethylPREDNISolone 40 MG/ML VIAL IVP SCH ×2 (09:25→16:12)
[2020-05-10] MEDS: Budesonide/Formoterol 160/4.5 1 PUFF INH IH SCH ×2 (11:23→20:32)
[2020-05-10] MEDS ORDERED: Tolvaptan 15 MG TABLET PO ONE (15:28)
[2020-05-10] MEDS: Nicotine 21 MG PATCH.TD24 TD SCH (20:00)
[2020-05-11] MEDS: MethylPREDNISolone 40 MG/ML VIAL IVP SCH ×4 (00:40→23:32)
[2020-05-11 02:06] LABS: Basophils % 0.1 %; Hematocrit 28.3 % (37.5-50.1); Hemoglobin 8.7 g/dL (12.9-16.9); Immature Granulocytes % 0.6 % (0-4); Lymphocytes # 0.8 K/mcL (0.6-4.6); Lymphocytes % 6.1 %; Mean Corpuscular HGB Conc 30.7 g/dL (31.6-35.5); Mean Corpuscular Hemoglobin 26.5 pg (28.0-33.3); Mean Corpuscular Volume 86.3 fL (83.0-100.0); Monocytes # 0.8 K/mcL (0.0-1.3); Monocytes % 5.9 %; Neutrophils # 11.1 K/mcL (1.6-8.9); Platelet Count 402 K/mcL (140-400); Red Blood Count 3.28 M/mcL (4.19-5.50); Red Cell Distribution Width 19.5 % (11.5-14.5); Segmented Neutrophils % 87.3 %; White Blood Count 12.7 K/mcL (4.3-11.1)
[2020-05-11 02:24] LABS: BUN/Creatinine Ratio 45 (6-26); Blood Urea Nitrogen 21 mg/dL (8-23); Calcium 8.7 mg/dL (8.6-10.3); Carbon Dioxide 34 mEq/L (23-29); Chloride 90 mEq/L (98-107); Glucose 121 mg/dL (70-105); Osmolality,Calculated 276 (280-300); Potassium 4.1 mEq/L (3.5-5.1); Sodium 131 mEq/L (136-145); eGFR For African Americans > 60 (> 60); eGFR For Non-African Americans > 60 (> 60)
[2020-05-11] MEDS: Ipratropium/Albuterol Neb 3 ML IH SCH ×6 (03:59→23:44)
[2020-05-11] MEDS: Budesonide/Formoterol 160/4.5 1 PUFF INH IH SCH ×2 (07:37→19:58)
[2020-05-11] MEDS ORDERED: Tolvaptan 15 MG TABLET PO ONE (09:05)
[2020-05-11] MEDS: Aspirin Enteric Coated 81 MG Tablet PO SCH (09:48)
[2020-05-11] MEDS: Cyanocobalamin (B-12) 1,000 MCG TABLET PO SCH (09:48)
[2020-05-11] MEDS: Thiamine (B-1) 100 MG TABLET PO SCH (09:48)
[2020-05-11] MEDS: Furosemide 40 MG TABLET PO SCH ×2 (09:48→17:18)
[2020-05-11] MEDS: Folic Acid 1 MG TABLET PO SCH (09:48)
[2020-05-11] MEDS: allopurinoL 300 MG TABLET PO SCH (09:48)
[2020-05-11] MEDS ORDERED: Ondansetron 4 MG/2 ML VIAL IVP PRN (18:24)
[2020-05-11] MEDS: Nicotine 21 MG PATCH.TD24 TD SCH (19:33)
[2020-05-12 02:08] LABS: BUN/Creatinine Ratio 45 (6-26); Blood Urea Nitrogen 24 mg/dL (8-23); Calcium 8.4 mg/dL (8.6-10.3); Carbon Dioxide 35 mEq/L (23-29); Chloride 91 mEq/L (98-107); Glucose 123 mg/dL (70-105); Osmolality,Calculated 281 (280-300); Potassium 4.2 mEq/L (3.5-5.1); Sodium 133 mEq/L (136-145); eGFR For African Americans > 60 (> 60); eGFR For Non-African Americans > 60 (> 60)
[2020-05-12] MEDS: Ipratropium/Albuterol Neb 3 ML IH SCH ×4 (03:49→16:10)
[2020-05-12] MEDS: Budesonide/Formoterol 160/4.5 1 PUFF INH IH SCH (07:35)
[2020-05-12] MEDS: Cyanocobalamin (B-12) 1,000 MCG TABLET PO SCH (08:04)
[2020-05-12] MEDS: MethylPREDNISolone 40 MG/ML VIAL IVP SCH ×2 (08:04→15:59)
[2020-05-12] MEDS: Furosemide 40 MG TABLET PO SCH (08:04)
[2020-05-12] MEDS: allopurinoL 300 MG TABLET PO SCH (08:04)
[2020-05-12] MEDS: Folic Acid 1 MG TABLET PO SCH (08:04)
[2020-05-12] MEDS: Aspirin Enteric Coated 81 MG Tablet PO SCH (08:05)
[2020-05-12] MEDS: Thiamine (B-1) 100 MG TABLET PO SCH (08:05)
[2020-05-12 11:03] VITALS: BP 123/78
== END 2020-05-12 16:46 | disposition home or self-care (01) | DRG 280 ==
LOC: 2NNU 09:32 → EMEROOARM 09:32 → 2NNU 12:08 → SUATTDRO 13:46 → 2ANU 05-09 15:38
PROVIDERS: ADMIT Student in an Organized Health Care Education/Training Program; ATTEND Family Medicine

== ENCOUNTER 2020-10-11 16:58 | Inpatient (IN) ==
[2020-10-11] MEDS ORDERED: 0.9 % Sodium Chloride 1,000 ML IVC ONE ×2 (17:16→19:35)
[2020-10-11] MEDS ORDERED: Ondansetron 4 MG/2 ML VIAL IVP ONE (17:21)
[2020-10-11] MEDS ORDERED: *HR* FentaNYL (PF) 100 MCG/2 ML VIAL IVP ONE (17:21)
[2020-10-11 17:33] LABS: Basophils % 0.2 %; Eosinophils % 0.2 %; Hematocrit 34.7 % (37.5-50.1); Hemoglobin 11.7 g/dL (12.9-16.9); Immature Granulocytes % 0.5 % (0-4); Lymphocytes # 0.8 K/mcL (0.6-4.6); Mean Corpuscular HGB Conc 33.7 g/dL (31.6-35.5); Mean Corpuscular Hemoglobin 32.2 pg (28.0-33.3); Mean Corpuscular Volume 95.6 fL (83.0-100.0); Mean Platelet Volume 9.6 fL (9.4-12.4); Neutrophils # 6.2 K/mcL (1.6-8.9); Platelet Count 228 K/mcL (140-400); Red Blood Count 3.63 M/mcL (4.19-5.50); Red Cell Distribution Width 16.3 % (11.5-14.5); Segmented Neutrophils % 77.1 %
[2020-10-11] MEDS ORDERED: Isovue-370 500 ML BOTTLE IVP ONE (17:57)
[2020-10-11 18:05] LABS: Alanine Aminotransferase 40 Units/L (7-52); Albumin 3.9 g/dL (3.5-5.7); Alkaline Phosphatase 61 Units/L (34-104); Aspartate Amino Transferase 89 Units/L (13-39); BUN/Creatinine Ratio 24 (6-26); Bilirubin,Total 0.3 mg/dL (0.3-1.0); Blood Urea Nitrogen 11 mg/dL (8-23); Calcium 9.2 mg/dL (8.6-10.3); Carbon Dioxide 22 mEq/L (23-29); Chloride 90 mEq/L (98-107); Globulin 4.1 g/dL (2.4-3.5); Glucose 82 mg/dL (70-105); Lipase 40 Units/L (11-82); Osmolality,Calculated 262 (280-300); Potassium 4.1 mEq/L (3.5-5.1); Sodium 127 mEq/L (136-145); eGFR For African Americans > 60 (> 60); eGFR For Non-African Americans > 60 (> 60)
[2020-10-11] MEDS ORDERED: *HR* HYDROmorphone (PF) 1 MG/ML SYRINGE IVP ONE ×2 (18:15→19:28)
[2020-10-11 18:59] LABS: Bilirubin,Urine Negative (Negative); Blood,Urine Negative (Negative); Clarity,Urine Clear (Clear); Color,Urine Light-Yellow (Yellow); Glucose,Urine (UA) Normal (Normal); Ketones,Urine Negative (Negative); Leukocyte Esterase,Urine Negative (Negative); Nitrite,Urine Negative (Negative); PH,Urine 5.5 pH Units (5.0-8.0); Protein,Urine Negative (Neg-Trace); Specific Gravity,Urine 1.012 (1.010-1.025); Urobilinogen,Urine Normal (Normal)
[2020-10-11] MEDS ORDERED: Tetracaine/Benzocaine/Butamben 1 SPRAY AEROSOL MM ONE (20:52)
[2020-10-11] MEDS ORDERED: Naloxone 0.4 MG/ML INJ IVP PRN (22:18)
[2020-10-11] MEDS ORDERED: 0.9 % Sodium Chloride 1,000 ML IVC SCH (22:30)
[2020-10-12 07:57] LABS: Bilirubin,Urine Negative (Negative); Blood,Urine Large (Negative); Clarity,Urine Turbid (Clear); Color,Urine Light-Orange (Yellow); Glucose,Urine (UA) Normal (Normal); Ketones,Urine 40 mg/dL (Negative); Leukocyte Esterase,Urine Trace (Negative); Nitrite,Urine Negative (Negative); Protein,Urine >=300 mg/dL (Neg-Trace); Specific Gravity,Urine > 1.030 (1.010-1.025); Urobilinogen,Urine Normal (Normal)
[2020-10-12 08:07] LABS: RBC,Urine TNTC per hpf (0-3)
[2020-10-12 08:09] LABS: Squamous Epithelial Cell,Urine Few per hpf (None-Few); Transitional Epi Cells,Urine Few per hpf (None-Few)
[2020-10-12 08:10] LABS: Bacteria,Urine Few per hpf (None-Few)
[2020-10-12 09:18] LABS: Hematocrit 32.9 % (37.5-50.1); Hemoglobin 10.9 g/dL (12.9-16.9); Mean Corpuscular HGB Conc 33.1 g/dL (31.6-35.5); Mean Corpuscular Hemoglobin 32.4 pg (28.0-33.3); Mean Corpuscular Volume 97.9 fL (83.0-100.0); Mean Platelet Volume 9.5 fL (9.4-12.4); Platelet Count 203 K/mcL (140-400); Red Blood Count 3.36 M/mcL (4.19-5.50); Red Cell Distribution Width 16.9 % (11.5-14.5)
[2020-10-12 09:38] LABS: BUN/Creatinine Ratio 26 (6-26); Blood Urea Nitrogen 9 mg/dL (8-23); Calcium 8.5 mg/dL (8.6-10.3); Carbon Dioxide 23 mEq/L (23-29); Chloride 96 mEq/L (98-107); Glucose 74 mg/dL (70-105); Osmolality,Calculated 269 (280-300); Potassium 3.6 mEq/L (3.5-5.1); Sodium 131 mEq/L (136-145); eGFR For African Americans > 60 (> 60); eGFR For Non-African Americans > 60 (> 60)
[2020-10-12] MEDS: Furosemide 40 MG TABLET PO SCH (17:41)
[2020-10-12] MEDS: Gabapentin 300 MG CAPSULE PO SCH (20:37)
[2020-10-13 07:25] LABS: Hematocrit 38.7 % (37.5-50.1); Mean Corpuscular HGB Conc 33.1 g/dL (31.6-35.5); Mean Corpuscular Hemoglobin 32.1 pg (28.0-33.3); Mean Platelet Volume 9.2 fL (9.4-12.4); Platelet Count 207 K/mcL (140-400); Red Blood Count 3.99 M/mcL (4.19-5.50); Red Cell Distribution Width 16.8 % (11.5-14.5); White Blood Count 5.7 K/mcL (4.3-11.1)
[2020-10-13 07:26] LABS: Hemoglobin 12.8 g/dL (12.9-16.9)
[2020-10-13 07:44] LABS: BUN/Creatinine Ratio 17 (6-26); Blood Urea Nitrogen 6 mg/dL (8-23); Calcium 8.8 mg/dL (8.6-10.3); Carbon Dioxide 28 mEq/L (23-29); Chloride 95 mEq/L (98-107); Glucose 84 mg/dL (70-105); Magnesium 1.5 mg/dL (1.6-2.6); Osmolality,Calculated 271 (280-300); Potassium 3.1 mEq/L (3.5-5.1); Sodium 132 mEq/L (136-145); eGFR For African Americans > 60 (> 60); eGFR For Non-African Americans > 60 (> 60)
[2020-10-13] MEDS: Folic Acid 1 MG TABLET PO SCH (09:10)
[2020-10-13] MEDS: Cyanocobalamin (B-12) 1,000 MCG TABLET PO SCH (09:10)
[2020-10-13] MEDS: Gabapentin 300 MG CAPSULE PO SCH ×2 (09:10→21:12)
[2020-10-13] MEDS: Thiamine (B-1) 100 MG TABLET PO SCH (09:10)
[2020-10-13] MEDS: Aspirin Enteric Coated 81 MG Tablet PO SCH (09:11)
[2020-10-13] MEDS: Furosemide 40 MG TABLET PO SCH ×2 (09:11→16:48)
[2020-10-13 10:22] LABS: INR 1.3; Prothrombin Time 14.5 Seconds (9.4-12.1)
[2020-10-13 13:42] LABS: RBC,Pleural Fluid 2000 RBC/mcL
[2020-10-13 13:44] LABS: Appearance of Pleural Fl Clear (Clear)
[2020-10-13 13:57] LABS: Total Protein,Pleural Fluid 4.2 g/dL
[2020-10-13 14:32] LABS: Lactate Dehydrogenase 269 Units/L (140-271)
[2020-10-13 14:33] LABS: Eosinophils,Pleural Fluid 0 %
[2020-10-13 14:34] LABS: Basophils,Pleural Fluid 0 %
[2020-10-13] MEDS: Nicotine 21 MG PATCH.TD24 TD SCH (17:25)
[2020-10-14 05:38] LABS: Hematocrit 35.8 % (37.5-50.1); Hemoglobin 11.9 g/dL (12.9-16.9); Mean Corpuscular HGB Conc 33.2 g/dL (31.6-35.5); Mean Corpuscular Hemoglobin 32.8 pg (28.0-33.3); Mean Corpuscular Volume 98.6 fL (83.0-100.0); Mean Platelet Volume 9.6 fL (9.4-12.4); Platelet Count 204 K/mcL (140-400); Red Blood Count 3.63 M/mcL (4.19-5.50); Red Cell Distribution Width 16.7 % (11.5-14.5); White Blood Count 6.4 K/mcL (4.3-11.1)
[2020-10-14 06:01] LABS: BUN/Creatinine Ratio 19 (6-26); Blood Urea Nitrogen 8 mg/dL (8-23); Calcium 8.6 mg/dL (8.6-10.3); Carbon Dioxide 30 mEq/L (23-29); Chloride 92 mEq/L (98-107); Glucose 97 mg/dL (70-105); Magnesium 1.6 mg/dL (1.6-2.6); Osmolality,Calculated 266 (280-300); Potassium 3.3 mEq/L (3.5-5.1); Sodium 129 mEq/L (136-145); eGFR For African Americans > 60 (> 60); eGFR For Non-African Americans > 60 (> 60)
[2020-10-14] MEDS: Thiamine (B-1) 100 MG TABLET PO SCH (09:42)
[2020-10-14] MEDS: Aspirin Enteric Coated 81 MG Tablet PO SCH (09:42)
[2020-10-14] MEDS: Cyanocobalamin (B-12) 1,000 MCG TABLET PO SCH (09:42)
[2020-10-14] MEDS: Folic Acid 1 MG TABLET PO SCH (09:42)
[2020-10-14] MEDS: Furosemide 40 MG TABLET PO SCH ×2 (09:42→16:20)
[2020-10-14] MEDS: Gabapentin 300 MG CAPSULE PO SCH ×2 (09:42→20:25)
[2020-10-14] MEDS: Nicotine 21 MG PATCH.TD24 TD SCH (09:42)
[2020-10-15] MEDS: Ondansetron 4 MG/2 ML VIAL IVP PRN ×2 (00:45→11:35)
[2020-10-15 04:20] LABS: BUN/Creatinine Ratio 28 (6-26); Blood Urea Nitrogen 11 mg/dL (8-23); Calcium 8.7 mg/dL (8.6-10.3); Carbon Dioxide 26 mEq/L (23-29); Chloride 95 mEq/L (98-107); Glucose 102 mg/dL (70-105); Osmolality,Calculated 272 (280-300); Potassium 3.7 mEq/L (3.5-5.1); Sodium 131 mEq/L (136-145); eGFR For African Americans > 60 (> 60); eGFR For Non-African Americans > 60 (> 60)
[2020-10-15] MEDS ORDERED: Prochlorperazine 10 MG/2 ML VIAL IVP PRN (06:05)
[2020-10-15] MEDS ORDERED: Isovue-370 500 ML BOTTLE IVP ONE ×2 (08:08→09:42)
[2020-10-15] MEDS: Furosemide 40 MG TABLET PO SCH ×2 (08:34→17:41)
[2020-10-15] MEDS: Thiamine (B-1) 100 MG TABLET PO SCH (08:34)
[2020-10-15] MEDS: Nicotine 21 MG PATCH.TD24 TD SCH (08:34)
[2020-10-15] MEDS: Folic Acid 1 MG TABLET PO SCH (08:34)
[2020-10-15] MEDS: Cyanocobalamin (B-12) 1,000 MCG TABLET PO SCH (08:34)
[2020-10-15] MEDS: Aspirin Enteric Coated 81 MG Tablet PO SCH (08:34)
[2020-10-15] MEDS: Gabapentin 300 MG CAPSULE PO SCH ×3 (08:34→20:16)
[2020-10-15] MEDS ORDERED: Mag Hydrox/Al Hydrox/Simeth 30 ML UDC PO PRN (10:50)
[2020-10-15 11:32] LABS: Fluid Source for Cholesterol PLEURAL FLUID
[2020-10-15 12:12] LABS: Basophils % 0.2 %; Hematocrit 39.7 % (37.5-50.1); Hemoglobin 12.9 g/dL (12.9-16.9); Immature Granulocytes % 0.5 % (0-4); Lymphocytes # 0.8 K/mcL (0.6-4.6); Lymphocytes % 8.7 %; Mean Corpuscular HGB Conc 32.5 g/dL (31.6-35.5); Mean Corpuscular Hemoglobin 32.3 pg (28.0-33.3); Mean Corpuscular Volume 99.5 fL (83.0-100.0); Mean Platelet Volume 9.5 fL (9.4-12.4); Monocytes % 10.2 %; Neutrophils # 7.8 K/mcL (1.6-8.9); Platelet Count 240 K/mcL (140-400); Red Blood Count 3.99 M/mcL (4.19-5.50); Red Cell Distribution Width 16.7 % (11.5-14.5); Segmented Neutrophils % 80.4 %
[2020-10-15 12:16] LABS: White Blood Count 9.7 K/mcL (4.3-11.1)
[2020-10-15 12:47] LABS: Albumin 3.6 g/dL (3.5-5.7); Albumin/Globulin Ratio 0.9 (1.1-2.2); Bilirubin,Direct 0.1 mg/dL (0.0-0.2); Bilirubin,Indirect 0.3 mg/dL (0.0-1.0); Bilirubin,Total 0.4 mg/dL (0.3-1.0); Globulin 4.1 g/dL (2.4-3.5); Total Protein 7.7 g/dL (6.4-8.9)
[2020-10-15 13:12] LABS: Cholesterol,Body Fluid 44 mg/dL
[2020-10-15] MEDS: MetroNIDAZOLE 500 MG/100 ML 500 MG/100 ML BAG IVPB SCH ×3 (13:16→23:12)
[2020-10-16 01:25] LABS: Hematocrit 35.6 % (37.5-50.1); Hemoglobin 11.8 g/dL (12.9-16.9); Mean Corpuscular HGB Conc 33.1 g/dL (31.6-35.5); Mean Corpuscular Hemoglobin 32.4 pg (28.0-33.3); Mean Corpuscular Volume 97.8 fL (83.0-100.0); Mean Platelet Volume 9.8 fL (9.4-12.4); Platelet Count 223 K/mcL (140-400); Red Blood Count 3.64 M/mcL (4.19-5.50); Red Cell Distribution Width 16.4 % (11.5-14.5); White Blood Count 12.3 K/mcL (4.3-11.1)
[2020-10-16 01:47] LABS: Alanine Aminotransferase 33 Units/L (7-52); Albumin 3.4 g/dL (3.5-5.7); Albumin/Globulin Ratio 0.9 (1.1-2.2); Alkaline Phosphatase 50 Units/L (34-104); Aspartate Amino Transferase 61 Units/L (13-39); BUN/Creatinine Ratio 30 (6-26); Bilirubin,Total 0.4 mg/dL (0.3-1.0); Blood Urea Nitrogen 13 mg/dL (8-23); Calcium 8.6 mg/dL (8.6-10.3); Carbon Dioxide 26 mEq/L (23-29); Chloride 93 mEq/L (98-107); Globulin 3.8 g/dL (2.4-3.5); Glucose 101 mg/dL (70-105); Magnesium 1.5 mg/dL (1.6-2.6); Osmolality,Calculated 268 (280-300); Potassium 3.4 mEq/L (3.5-5.1); Sodium 129 mEq/L (136-145); Total Protein 7.2 g/dL (6.4-8.9); eGFR For African Americans > 60 (> 60); eGFR For Non-African Americans > 60 (> 60)
[2020-10-16] MEDS ORDERED: Lactobacillus 1 EACH CAP.SPRINK PO SCH (09:00)
[2020-10-16] MEDS: Nicotine 21 MG PATCH.TD24 TD SCH (09:01)
[2020-10-16] MEDS: Aspirin Enteric Coated 81 MG Tablet PO SCH (09:02)
[2020-10-16] MEDS: Thiamine (B-1) 100 MG TABLET PO SCH (09:02)
[2020-10-16] MEDS: Folic Acid 1 MG TABLET PO SCH (09:02)
[2020-10-16] MEDS: Gabapentin 300 MG CAPSULE PO SCH (09:02)
[2020-10-16] MEDS: Furosemide 40 MG TABLET PO SCH (09:02)
[2020-10-16] MEDS: Cyanocobalamin (B-12) 1,000 MCG TABLET PO SCH (09:03)
[2020-10-16] MEDS: MetroNIDAZOLE 500 MG/100 ML 500 MG/100 ML BAG IVPB SCH (09:03)
[2020-10-16 11:19] VITALS: BP 93/65; PULSE 84; TEMP 97.6; O2SAT 94
== END 2020-10-16 15:14 | disposition home or self-care (01) | DRG 388 ==
LOC: 3ANU 16:58 → EMEROOARM 16:58 → SUATTDRO 20:57 → 3ANU 21:29 → SUATTDRO 10-12 14:55 → 3NENU 10-14 02:46
PROVIDERS: ADMIT Internal Medicine; ATTEND Internal Medicine

== ENCOUNTER 2020-10-21 19:32 | Inpatient (IN) ==
[2020-10-21] MEDS ORDERED: Isovue-370 500 ML BOTTLE IVP ONE (20:26)
[2020-10-21 20:33] LABS: Basophils % 0.3 %; Eosinophils % 0.3 %; Hematocrit 34.9 % (37.5-50.1); Hemoglobin 11.7 g/dL (12.9-16.9); Immature Granulocytes % 0.6 % (0-4); Lymphocytes # 1.5 K/mcL (0.6-4.6); Lymphocytes % 12.6 %; Mean Corpuscular HGB Conc 33.5 g/dL (31.6-35.5); Mean Corpuscular Hemoglobin 32.5 pg (28.0-33.3); Mean Corpuscular Volume 96.9 fL (83.0-100.0); Mean Platelet Volume 9.5 fL (9.4-12.4); Monocytes % 8.5 %; Neutrophils # 9.4 K/mcL (1.6-8.9); Platelet Count 345 K/mcL (140-400); Red Cell Distribution Width 15.8 % (11.5-14.5); Segmented Neutrophils % 77.7 %; White Blood Count 12.1 K/mcL (4.3-11.1)
[2020-10-21 20:47] LABS: Amorphous Sediment,Urine Few per hpf (None-Few); Bilirubin,Urine Negative (Negative); Blood,Urine Small (Negative); Clarity,Urine Turbid (Clear); Color,Urine Yellow (Yellow); Glucose,Urine (UA) Normal (Normal); Hyaline Casts,Urine Few per lpf (None Seen); Ketones,Urine Trace mg/dL (Negative); Leukocyte Esterase,Urine Negative (Negative); Mucus,Urine Few per lpf (None-Few); Nitrite,Urine Negative (Negative); Protein,Urine 70 mg/dL (Neg-Trace); Specific Gravity,Urine 1.027 (1.010-1.025); Uric Acid Crystals,Urine Present per hpf; Urobilinogen,Urine Normal (Normal)
[2020-10-21 20:52] LABS: Alanine Aminotransferase 37 Units/L (7-52); Albumin 3.4 g/dL (3.5-5.7); Albumin/Globulin Ratio 0.9 (1.1-2.2); Alkaline Phosphatase 45 Units/L (34-104); Aspartate Amino Transferase 68 Units/L (13-39); BUN/Creatinine Ratio 46 (6-26); Bilirubin,Direct 0.1 mg/dL (0.0-0.2); Bilirubin,Indirect 0.3 mg/dL (0.0-1.0); Bilirubin,Total 0.4 mg/dL (0.3-1.0); Blood Urea Nitrogen 16 mg/dL (8-23); Calcium 8.6 mg/dL (8.6-10.3); Carbon Dioxide 23 mEq/L (23-29); Chloride 99 mEq/L (98-107); Globulin 3.9 g/dL (2.4-3.5); Glucose 67 mg/dL (70-105); Lipase 79 Units/L (11-82); Osmolality,Calculated 273 (280-300); Potassium 3.7 mEq/L (3.5-5.1); Sodium 132 mEq/L (136-145); Total Protein 7.3 g/dL (6.4-8.9); eGFR For African Americans > 60 (> 60); eGFR For Non-African Americans > 60 (> 60)
[2020-10-21] MEDS ORDERED: Morphine Sulfate 2 MG/ML SYRINGE IVP STA (20:53)
[2020-10-21] MEDS ORDERED: Ondansetron 4 MG/2 ML VIAL IVP STA (20:53)
[2020-10-21] MEDS ORDERED: D5% in 0.45% NACL 1,000 ML IVC SCH (22:45)
[2020-10-22] MEDS ORDERED: Melatonin 3 MG TABLET PO PRN (01:00)
[2020-10-22] MEDS ORDERED: Ketorolac 15 MG/ML VIAL IVP PRN (01:00)
[2020-10-22] MEDS ORDERED: Naloxone 0.4 MG/ML INJ IVP PRN (01:00)
[2020-10-22] MEDS ORDERED: *HR* Promethazine 25 MG/ML VIAL IM PRN (01:00)
[2020-10-22] MEDS ORDERED: *HR* Metoprolol 5 MG/5 ML VIAL IVP PRN (01:20)
[2020-10-22] MEDS: 0.9 % Sodium Chloride 1,000 ML IVC SCH ×2 (02:56→20:26)
[2020-10-22 03:44] LABS: Basophils % 0.3 %; Eosinophils # 0.1 K/mcL (0.0-0.6); Eosinophils % 0.5 %; Hematocrit 33.8 % (37.5-50.1); Hemoglobin 11.2 g/dL (12.9-16.9); Immature Granulocytes % 0.7 % (0-4); Lymphocytes # 1.3 K/mcL (0.6-4.6); Lymphocytes % 12.9 %; Mean Corpuscular HGB Conc 33.1 g/dL (31.6-35.5); Mean Corpuscular Volume 96.6 fL (83.0-100.0); Mean Platelet Volume 9.6 fL (9.4-12.4); Monocytes # 0.7 K/mcL (0.0-1.3); Monocytes % 7.3 %; Neutrophils # 7.9 K/mcL (1.6-8.9); Platelet Count 329 K/mcL (140-400); Red Cell Distribution Width 15.9 % (11.5-14.5); Segmented Neutrophils % 78.3 %; White Blood Count 10.1 K/mcL (4.3-11.1)
[2020-10-22 04:01] LABS: Alanine Aminotransferase 33 Units/L (7-52); Albumin 3.2 g/dL (3.5-5.7); Albumin/Globulin Ratio 0.9 (1.1-2.2); Alkaline Phosphatase 42 Units/L (34-104); Aspartate Amino Transferase 57 Units/L (13-39); BUN/Creatinine Ratio 41 (6-26); Bilirubin,Total 0.3 mg/dL (0.3-1.0); Blood Urea Nitrogen 15 mg/dL (8-23); Calcium 8.4 mg/dL (8.6-10.3); Carbon Dioxide 25 mEq/L (23-29); Chloride 98 mEq/L (98-107); Globulin 3.7 g/dL (2.4-3.5); Glucose 94 mg/dL (70-105); Osmolality,Calculated 273 (280-300); Potassium 3.5 mEq/L (3.5-5.1); Sodium 131 mEq/L (136-145); Total Protein 6.9 g/dL (6.4-8.9); eGFR For African Americans > 60 (> 60); eGFR For Non-African Americans > 60 (> 60)
[2020-10-22] MEDS: Ondansetron 4 MG/2 ML VIAL IVP PRN (07:47)
[2020-10-22] MEDS ORDERED: Dextrose Gel 15 GM/37.5 ML TUBE PO PRN ×2 (10:58)
[2020-10-22] MEDS ORDERED: D5% in Water 1,000 ML IVC PRN (10:58)
[2020-10-22] MEDS ORDERED: *HR* Dextrose 50 % in Water (Vial) 50 ML VIAL IVP PRN (10:58)
[2020-10-22] MEDS: Aspirin Enteric Coated 81 MG Tablet PO SCH (13:27)
[2020-10-22] MEDS: Gabapentin 300 MG CAPSULE PO SCH (20:23)
[2020-10-23 05:47] LABS: Basophils % 0.3 %; Eosinophils # 0.1 K/mcL (0.0-0.6); Hematocrit 31.9 % (37.5-50.1); Hemoglobin 10.6 g/dL (12.9-16.9); Immature Granulocytes % 0.4 % (0-4); Lymphocytes # 0.9 K/mcL (0.6-4.6); Lymphocytes % 11.7 %; Mean Corpuscular HGB Conc 33.2 g/dL (31.6-35.5); Mean Corpuscular Volume 99.4 fL (83.0-100.0); Mean Platelet Volume 9.4 fL (9.4-12.4); Monocytes # 0.7 K/mcL (0.0-1.3); Monocytes % 9.1 %; Neutrophils # 6.1 K/mcL (1.6-8.9); Platelet Count 307 K/mcL (140-400); Red Blood Count 3.21 M/mcL (4.19-5.50); Red Cell Distribution Width 15.8 % (11.5-14.5); Segmented Neutrophils % 77.5 %; White Blood Count 7.8 K/mcL (4.3-11.1)
[2020-10-23 06:12] LABS: BUN/Creatinine Ratio 38 (6-26); Blood Urea Nitrogen 12 mg/dL (8-23); Calcium 8.3 mg/dL (8.6-10.3); Carbon Dioxide 24 mEq/L (23-29); Chloride 103 mEq/L (98-107); Glucose 93 mg/dL (70-105); Magnesium 1.5 mg/dL (1.6-2.6); Osmolality,Calculated 275 (280-300); Phosphorous 3.3 mg/dL (2.7-4.5); Sodium 133 mEq/L (136-145); eGFR For African Americans > 60 (> 60); eGFR For Non-African Americans > 60 (> 60)
[2020-10-23] MEDS: Gabapentin 300 MG CAPSULE PO SCH ×2 (08:22→20:32)
[2020-10-23] MEDS: Cyanocobalamin (B-12) 1,000 MCG TABLET PO SCH (08:22)
[2020-10-23] MEDS: Aspirin Enteric Coated 81 MG Tablet PO SCH (08:23)
[2020-10-23] MEDS: Folic Acid 1 MG TABLET PO SCH (08:23)
[2020-10-23] MEDS: Thiamine (B-1) 100 MG TABLET PO SCH (08:23)
[2020-10-23] MEDS: Ondansetron 4 MG/2 ML VIAL IVP PRN (23:45)
[2020-10-24 01:58] LABS: Hemoglobin 11.2 g/dL (12.9-16.9); Mean Corpuscular HGB Conc 32.9 g/dL (31.6-35.5); Mean Corpuscular Hemoglobin 32.8 pg (28.0-33.3); Mean Corpuscular Volume 99.7 fL (83.0-100.0); Mean Platelet Volume 9.4 fL (9.4-12.4); Platelet Count 319 K/mcL (140-400); Red Blood Count 3.41 M/mcL (4.19-5.50); Red Cell Distribution Width 15.8 % (11.5-14.5); White Blood Count 7.6 K/mcL (4.3-11.1)
[2020-10-24 02:21] LABS: BUN/Creatinine Ratio 28 (6-26); Blood Urea Nitrogen 11 mg/dL (8-23); Calcium 8.5 mg/dL (8.6-10.3); Carbon Dioxide 23 mEq/L (23-29); Chloride 102 mEq/L (98-107); Glucose 88 mg/dL (70-105); Osmolality,Calculated 273 (280-300); Potassium 4.2 mEq/L (3.5-5.1); Sodium 132 mEq/L (136-145); eGFR For African Americans > 60 (> 60); eGFR For Non-African Americans > 60 (> 60)
[2020-10-24 08:05] VITALS: BP 95/61
[2020-10-24] MEDS ORDERED: 0.9 % Sodium Chloride 250 ML IVC ONE (08:35)
[2020-10-24] MEDS: Gabapentin 300 MG CAPSULE PO SCH (08:54)
[2020-10-24] MEDS: Aspirin Enteric Coated 81 MG Tablet PO SCH (08:54)
[2020-10-24] MEDS: Folic Acid 1 MG TABLET PO SCH (08:54)
[2020-10-24] MEDS: Thiamine (B-1) 100 MG TABLET PO SCH (08:54)
[2020-10-24] MEDS: Cyanocobalamin (B-12) 1,000 MCG TABLET PO SCH (08:55)
== END 2020-10-24 15:50 | disposition home or self-care (01) | DRG 389 ==
LOC: EMEROOARM 19:32 → 3ANU 19:32 → SUATTDRO 10-22 14:02
PROVIDERS: ADMIT Family Medicine; ATTEND Student in an Organized Health Care Education/Training Program

== ENCOUNTER 2021-01-06 13:09 | Inpatient (IN) ==
[2021-01-06] MEDS ORDERED: Dextrose Gel 15 GM/37.5 ML TUBE PO ONE (13:49)
[2021-01-06] MEDS: Dextrose Gel 15 GM/37.5 ML TUBE PO PRN ×2 (13:49→19:41)
[2021-01-06] MEDS ORDERED: *HR* Dextrose 50 % in Water (Vial) 50 ML VIAL ONE ×3 (13:49→20:17)
[2021-01-06] MEDS ORDERED: *HR* Dextrose 50 % in Water (Vial) 50 ML VIAL IVP ONE ×3 (14:01→20:11)
[2021-01-06] MEDS: D10% in Water 500 ML IVC SCH ×2 (14:28→23:21)
[2021-01-06 14:55] LABS: INR 1.4; Prothrombin Time 16.2 Seconds (9.4-12.1)
[2021-01-06 15:10] LABS: Alanine Aminotransferase 21 Units/L (7-52); Albumin 2.7 g/dL (3.5-5.7); Alkaline Phosphatase 39 Units/L (34-104); Aspartate Amino Transferase 35 Units/L (13-39); BUN/Creatinine Ratio 75 (6-26); Bilirubin,Direct 0.1 mg/dL (0.0-0.2); Bilirubin,Indirect 0.2 mg/dL (0.0-1.0); Bilirubin,Total 0.3 mg/dL (0.3-1.0); Blood Urea Nitrogen 55 mg/dL (8-23); Calcium 7.9 mg/dL (8.6-10.3); Carbon Dioxide 27 mEq/L (23-29); Chloride 99 mEq/L (98-107); Globulin 2.6 g/dL (2.4-3.5); Glucose 217 mg/dL (70-105); Lipase 16 Units/L (11-82); Magnesium 1.5 mg/dL (1.6-2.6); Osmolality,Calculated 304 (280-300); Potassium 4.1 mEq/L (3.5-5.1); Sodium 136 mEq/L (136-145); Total Protein 5.3 g/dL (6.4-8.9); eGFR For African Americans > 60 (> 60); eGFR For Non-African Americans > 60 (> 60)
[2021-01-06] MEDS: 0.9 % Sodium Chloride 1,000 ML IVC ONE ×2 (15:10→16:44)
[2021-01-06 15:26] LABS: Troponin I 0.22 ng/mL (< 0.04)
[2021-01-06 15:42] LABS: Bilirubin,Urine Negative (Negative); Blood,Urine Negative (Negative); Clarity,Urine Clear (Clear); Color,Urine Light-Yellow (Yellow); Glucose,Urine (UA) 50 mg/dL (Normal); Hyaline Casts,Urine Few per lpf (None Seen); Ketones,Urine 10 mg/dL (Negative); Leukocyte Esterase,Urine Negative (Negative); Nitrite,Urine Negative (Negative); PH,Urine 5.5 pH Units (5.0-8.0); Protein,Urine Negative (Neg-Trace); RBC,Urine 0-3 per hpf (0-3); Specific Gravity,Urine 1.018 (1.010-1.025); Urobilinogen,Urine Normal (Normal); WBC,Urine 0-3 per hpf (0-3)
[2021-01-06] MEDS ORDERED: *HR* Midazolam HCl 2 MG/2 ML VIAL ONE (16:13)
[2021-01-06] MEDS ORDERED: *HR* Midazolam HCl 2 MG/2 ML VIAL IVP PRN (16:34)
[2021-01-06 17:15] LABS: Adenovirus Not Detected (Not Detect); Bordetella Pertussis Not Detected (Not Detect); Chlamydophila pneumoniae Not Detected (Not Detect); Coronavirus 229E Not Detected (Not Detect); Coronavirus HKU1 Not Detected (Not Detect); Coronavirus NL63 Not Detected (Not Detect); Coronavirus OC43 Not Detected (Not Detect); Human Metapneumovirus Not Detected (Not Detect); Human Rhinovirus/Enterovirus Not Detected (Not Detect); Influenza A Subtype 2009 H1 Not Detected (Not Detect); Influenza B Not Detected (Not Detect); Mycoplasma pneumoniae Not Detected (Not Detect); Parainfluenza Virus 1 Not Detected (Not Detect); Parainfluenza Virus 2 Not Detected (Not Detect); Parainfluenza Virus 3 Not Detected (Not Detect); Parainfluenza Virus 4 Not Detected (Not Detect); Respiratory Syncytial Virus Not Detected (Not Detect); SARS-CoV-2 Not Detected (Not Detect)
[2021-01-06 17:22] LABS: Basophils % 0.1 %; Hematocrit 19.8 % (37.5-50.1); Hemoglobin 6.3 g/dL (12.9-16.9); Immature Granulocytes % 0.5 % (0-4); Lymphocytes # 1.6 K/mcL (0.6-4.6); Lymphocytes % 12.3 %; Mean Corpuscular HGB Conc 31.8 g/dL (31.6-35.5); Mean Corpuscular Volume 103.7 fL (83.0-100.0); Mean Platelet Volume 9.9 fL (9.4-12.4); Monocytes # 1.2 K/mcL (0.0-1.3); Monocytes % 9.1 %; Neutrophils # 10.3 K/mcL (1.6-8.9); Platelet Count 200 K/mcL (140-400); Red Blood Count 1.91 M/mcL (4.19-5.50); Red Cell Distribution Width 14.8 % (11.5-14.5); White Blood Count 13.2 K/mcL (4.3-11.1)
[2021-01-06] MEDS ORDERED: Naloxone 0.4 MG/ML INJ IVP PRN (17:41)
[2021-01-06] MEDS ORDERED: 0.9 % Sodium Chloride 1,000 ML IVC SCH (17:45)
[2021-01-06] MEDS ORDERED: *HR* LORazepam 2 MG/ML VIAL IVP PRN (17:59)
[2021-01-06] MEDS ORDERED: *HR* Promethazine 25 MG/ML VIAL IM PRN (17:59)
[2021-01-06] MEDS ORDERED: Thiamine (B-1) 100 MG, Folic Acid 1 MG, MVI, adult with vitamin K 10 ML in 0.9 % Sodi... IVPB SCH (18:00)
[2021-01-06] MEDS ORDERED: Vancomycin (wt based) 1,000 MG VIAL IVPB SCH (18:00)
[2021-01-06 18:41] LABS: Hematocrit 19.4 % (37.5-50.1); Hemoglobin 6.4 g/dL (12.9-16.9)
[2021-01-06] MEDS: Pantoprazole 40 MG VIAL IVP SCH (20:35)
[2021-01-06] MEDS: D5% in Water 1,000 ML IVC PRN (21:03)
[2021-01-06] MEDS ORDERED: 0.9 % Sodium Chloride 250 ML ONE (21:18)
[2021-01-06 21:19] LABS: Bilirubin,Urine Negative (Negative); Blood,Urine Negative (Negative); Clarity,Urine Clear (Clear); Color,Urine Light-Yellow (Yellow); Glucose,Urine (UA) 50 mg/dL (Normal); Ketones,Urine 10 mg/dL (Negative); Leukocyte Esterase,Urine Negative (Negative); Mucus,Urine Few per lpf (None-Few); Nitrite,Urine Negative (Negative); PH,Urine 5.5 pH Units (5.0-8.0); Protein,Urine Negative (Neg-Trace); RBC,Urine 0-3 per hpf (0-3); Specific Gravity,Urine 1.018 (1.010-1.025); Squamous Epithelial Cell,Urine Few per hpf (None-Few); Urobilinogen,Urine Normal (Normal); WBC,Urine 0-3 per hpf (0-3)
[2021-01-06 21:19] LABS: Hematocrit 24.5 % (37.5-50.1)
[2021-01-06] MEDS: *HR* Dextrose 50 % in Water (Vial) 50 ML VIAL IVP PRN (21:25)
[2021-01-06 21:38] LABS: BUN/Creatinine Ratio 81 (6-26); Blood Urea Nitrogen 51 mg/dL (8-23); Calcium 8.1 mg/dL (8.6-10.3); Carbon Dioxide 23 mEq/L (23-29); Chloride 101 mEq/L (98-107); Glucose 160 mg/dL (70-105); Osmolality,Calculated 299 (280-300); Potassium 3.5 mEq/L (3.5-5.1); Sodium 136 mEq/L (136-145); eGFR For African Americans > 60 (> 60); eGFR For Non-African Americans > 60 (> 60)
[2021-01-06] MEDS: DilTIAZem 50 MG in 0.9 % Sodium Chloride 40 ML IVC SCH (21:49)
[2021-01-06] MEDS ORDERED: Morphine Sulfate 2 MG/ML SYRINGE IVP ONE (21:49)
[2021-01-06] MEDS ORDERED: Morphine Sulfate 2 MG/ML SYRINGE IVP PRN (22:05)
[2021-01-07] MEDS: Piperacillin/Tazobactam 3.375 GM in 0.9 % Sodium Chloride Mini Bag 100 ML IVPB SCH ×3 (00:33→15:25)
[2021-01-07] MEDS: DilTIAZem 50 MG in 0.9 % Sodium Chloride 40 ML IVC SCH ×5 (00:55→16:37)
[2021-01-07] MEDS: D10% in Water 500 ML IVC SCH ×4 (02:49→14:20)
[2021-01-07 04:01] LABS: Basophils % 0.1 %; Hematocrit 26.3 % (37.5-50.1); Hemoglobin 9.4 g/dL (12.9-16.9); Immature Granulocytes % 0.4 % (0-4); Lymphocytes # 1.2 K/mcL (0.6-4.6); Lymphocytes % 11.1 %; Mean Corpuscular HGB Conc 35.7 g/dL (31.6-35.5); Mean Corpuscular Hemoglobin 32.9 pg (28.0-33.3); Monocytes # 0.6 K/mcL (0.0-1.3); Neutrophils # 8.8 K/mcL (1.6-8.9); Platelet Count 183 K/mcL (140-400); Red Blood Count 2.86 M/mcL (4.19-5.50); Red Cell Distribution Width 16.7 % (11.5-14.5); Segmented Neutrophils % 82.4 %; White Blood Count 10.7 K/mcL (4.3-11.1)
[2021-01-07 04:02] LABS: VBG Ionized Calcium 1.13 mmol/L (1.15-1.35)
[2021-01-07 04:24] LABS: Alanine Aminotransferase 24 Units/L (7-52); Albumin 2.8 g/dL (3.5-5.7); Alkaline Phosphatase 40 Units/L (34-104); Aspartate Amino Transferase 45 Units/L (13-39); BUN/Creatinine Ratio 80 (6-26); Bilirubin,Total 0.5 mg/dL (0.3-1.0); Blood Urea Nitrogen 43 mg/dL (8-23); Calcium 8.2 mg/dL (8.6-10.3); Carbon Dioxide 24 mEq/L (23-29); Chloride 102 mEq/L (98-107); Globulin 2.9 g/dL (2.4-3.5); Glucose 100 mg/dL (70-105); Magnesium 1.9 mg/dL (1.6-2.6); Osmolality,Calculated 293 (280-300); Phosphorous 2.3 mg/dL (2.7-4.5); Sodium 136 mEq/L (136-145); Total Protein 5.7 g/dL (6.4-8.9); eGFR For African Americans > 60 (> 60); eGFR For Non-African Americans > 60 (> 60)
[2021-01-07 04:35] LABS: Thyroid Stimulating Hormone 3.726 mcIU/mL (0.340-5.600)
[2021-01-07] MEDS: Pantoprazole 40 MG VIAL IVP SCH (05:51)
[2021-01-07] MEDS: D5% in Water 1,000 ML IVC PRN (08:07)
[2021-01-07] MEDS: Calcium Gluconate 1gm/50mL 1 GM/50 ML BAG IVPB SCH ×2 (09:03→09:27)
[2021-01-07] MEDS: *HR* Dextrose 50 % in Water (Vial) 50 ML VIAL IVP PRN (09:59)
[2021-01-07] MEDS ORDERED: Thiamine (B-1) 100 MG TABLET PO SCH (15:00)
[2021-01-07] MEDS ORDERED: Perflutren Lipid Microsphere 1.3 ML in 0.9 % Sodium Chloride 8.7 ML IVP PRN (15:09)
[2021-01-07 15:14] LABS: Magnesium 1.7 mg/dL (1.6-2.6); Phosphorous 2.4 mg/dL (2.7-4.5); Potassium 3.4 mEq/L (3.5-5.1)
[2021-01-07 16:12] VITALS: BP 104/77; PULSE 84; O2SAT 95
[2021-01-07 16:25] VITALS: TEMP 96.2
== END 2021-01-07 16:39 | disposition short-term general hospital (02) | DRG 871 ==
LOC: EMEROOARM 13:09 → ICNU 17:28
PROVIDERS: ADMIT Pediatrics; ATTEND Pediatrics